=== PATIENT | male | born 1950 | race Two or more races ===

== ENCOUNTER 2016-03-23 17:26 | Inpatient (IN) | payer BC ==
[~2016-03-23] VITALS: Ht 177.8 cm; Wt 114.3 kg
[~2016-03-23 17:26] MED LIST: ASPIR 8181 MG ORAL; ATENOLOL25 MG ORAL; ATENOLOL50 MG ORAL; DIOVAN160 MG ORAL; LOVASTATIN20 MG ORAL; NORCO 10/3251 EA ORAL; SOMA350 MG PO
[2016-03-23] MEDS ORDERED: Morphine Sulfate 4mg/ml Inj IVP ONE (18:00)
--- NOTE | 2016-03-23 18:21 | Emergency Room Report ---
History of Present Illness General Chief Complaint: Lower Back Pain or Injury Source: Patient, Family Member, PMD Present Illness HPI This patient was sent in the by neurosurgery. The patient has a history of lumbar spinal fusion. He has been doing the driving and lifted some heavy luggage a couple days ago and since that time has been developing numbness in his left leg. He also has had weakness and foot drop of the left foot. He has pain in his low back. He denies recent illness. He denies fever or chills. He denies nausea or vomiting. He denies loss of bowel or bladder control. He has no other complaints. Allergies: Coded Allergies: No Known Allergies (Unverified , 07/24/12) Patient History Past Medical History: see triage record, DM, HTN, DC, CAD, CVA/TIA Past Surgical History: other - BL knee replacement. C2-4 spinal fusion, L3-5 spinal fusion. Social History: Denies: alcohol use, drug use, smoking Reviewed Nursing Documentation: PMH: Agreed, PSxH: Agreed Nursing Documentation-PMH Past Medical History: No History, Except For Hx Cardiac Problems: Yes - BILATERAL KNEE REPLACEMENT, L3 - L5 INFUSION, C3 - C4, 2004 DC Hx Hypertension: Yes Hx Diabetes: Yes Hx Cancer: No Hx Gastrointestinal Problems: No Hx Neurological Problems: Yes Hx Cerebrovascular Accident: Yes - mini stroke-2004 Review of Systems All Other Systems: negative except mentioned in HPI Physical Exam Vital Signs Date Time Temp Pulse Resp B/P Pulse Ox O2 Delivery O2 Flow Rate FiO2 03/23/16 17:41 98.1 85 20 128/53 99 Room Air Sp02 EP Interpretation: reviewed, normal General Appearance: no apparent distress, alert, GCS 15, non-toxic Head: normocephalic, atraumatic Eyes: bilateral eye PERRL, bilateral eye normal inspection ENT: hearing grossly normal, normal pharynx, no angioedema, normal voice Neck: full range of motion, supple/symm/no masses Respiratory: chest non-tender, lungs clear, normal breath sounds, speaking full sentences Cardiovascular #1: regular rate, rhythm, no edema Gastrointestinal: normal bowel sounds, non tender, soft, non-distended, no guarding, no rebound Rectal: deferred Musculoskeletal: back normal, normal range of motion, non-tender Neurologic: alert, oriented x3, responsive, barrel rifler III-XII nml as tested, sensory intact, speech normal, motor weakness - L. plantar flexion 3-4/5. Sensation decreased LLE diffusely. Psychiatric: judgement/insight normal, memory normal, mood/affect normal, no suicidal/homicidal ideation Skin: normal color, no rash, warm/dry, well hydrated Medical Decision Making Diagnostic Impression: Primary Impression: Lumbar radiculopathy Additional Impressions: Lumbar herniated disc Foot drop, left ER Course Patient has a known history of lumbar spinal fusion and disc disease. He has physical exam findings consistent with a herniated disc. He has some decreased sensation on the left lower extremity and weakness in the left foot. He was seen by neurosurgery and sent for further evaluation and admission. Neurosurgery requested steroids to be given an emergency department. An MRI is ordered but will be done as an inpatient. Inpatient physician will followup on the results of this. There is no evidence of cauda equina on physical exam or history. The patient is admitted for pain control and admitted for further evaluation and treatment. Labs Test 03/23/16 18:15 White Blood Count 9.3 K/UL (4.8-10.8) Red Blood Count 5.52 M/UL (4.70-6.10) Hemoglobin 17.5 G/DL (14.2-18.0) Hematocrit 52.2 % (42.0-52.0) Mean Corpuscular Volume 95 FL (80-99) Mean Corpuscular Hemoglobin 31.7 PG (27.0-31.0) Mean Corpuscular Hemoglobin Concent 33.5 G/DL (32.0-36.0) Red Cell Distribution Width 12.5 % (11.6-14.8) Platelet Count 235 K/UL (150-450) Mean Platelet Volume 6.4 FL (6.5-10.1) Neutrophils (%) (Auto) 80.1 % (45.0-75.0) Lymphocytes (%) (Auto) 13.3 % (20.0-45.0) Monocytes (%) (Auto) 5.7 % (1.0-10.0) Eosinophils (%) (Auto) 0.3 % (0.0-3.0) Basophils (%) (Auto) 0.5 % (0.0-2.0) Urine Color Yellow Urine Appearance Clear Urine pH 6 (4.5-8.0) Urine Specific [place] 1.015 (1.005-1.035) Urine Protein Negative (NEGATIVE) Urine Glucose (UA) 4+ (NEGATIVE) Urine Ketones 1+ (NEGATIVE) Urine Occult Blood Negative (NEGATIVE) Urine Nitrite Negative (NEGATIVE) Urine Bilirubin Negative (NEGATIVE) Urine Urobilinogen Normal MG/DL (0.0-1.0) Urine Leukocyte Esterase Negative (NEGATIVE) Sodium Level 140 mEQ/L (135-145) Potassium Level 4.0 mEQ/L (3.4-4.9) Chloride Level 97 mEQ/L (98-107) Carbon Dioxide Level 25 mEQ/L (20-30) Anion Gap 18 (5-15) Blood Urea Nitrogen 22 mg/dL (7-23) Creatinine 1.0 mg/dL (0.7-1.2) Estimat Glomerular Filtration Rate > 60 mL/min (>60) Glucose Level 247 mg/dL (74-106) Calcium Level 9.4 mg/dL (8.6-10.2) Total Bilirubin 0.4 mg/dL (0.0-1.2) Aspartate Amino Transf (AST/SGOT) 24 U/L (5-40) Alanine Aminotransferase (ALT/SGPT) 37 U/L (3-41) Alkaline Phosphatase 92 U/L (40-129) Total Protein 6.9 g/dL (6.6-8.7) Albumin 4.1 g/dL (3.5-5.2) Globulin 2.8 g/dL Albumin/Globulin Ratio 1.4 (1.0-2.7) EKG Diagnostic Results Rate: normal Rhythm: NSR ST Segments: no acute changes Rhythm Strip Diag. Results EP Interpretation: yes Rate: 70's Rhythm: NSR, no PVC's, no ectopy Last Vital Signs Date Time Temp Pulse Resp B/P Pulse Ox O2 Delivery O2 Flow Rate FiO2 03/23/16 17:41 98.1 85 20 128/53 99 Room Air Disposition: ADMITTED INPATIENT Condition: Stable ARSEN TODD D.O. Mar 23, 2016 18:21
[2016-03-23 18:41] LABS: APPEARANCE,URINE CLEAR; BASOPHILS % (AUTO) 0.5 % (0.0-2.0); EOSINOPHILS % (AUTO) 0.3 % (0.0-3.0); KETONES,URINE 1+ (NEGATIVE); LEUKOCYTE ESTERASE ,URINE NEGATIVE (NEGATIVE); LYMPHOCYTES % (AUTO) 13.3 % (20.0-45.0); MEAN CORPUSCULAR HEMOGLOBIN 31.7 PG (27.0-31.0); MEAN CORPUSCULAR HGB CONC 33.5 G/DL (32.0-36.0); MEAN CORPUSCULAR VOLUME 95 FL (80-99); MEAN PLATELET VOLUME 6.4 FL (6.5-10.1); MONOCYTES % (AUTO) 5.7 % (1.0-10.0); NEUTROPHILS % (AUTO) 80.1 % (45.0-75.0); NITRITE,URINE NEGATIVE (NEGATIVE); PH,URINE 6 (4.5-8.0); PLATELET COUNT 235 K/UL (150-450); PROTEIN,URINE NEGATIVE (NEGATIVE); RED BLOOD COUNT 5.52 M/UL (4.70-6.10); RED CELL DISTRIBUTION WIDTH 12.5 % (11.6-14.8); UROBILINOGEN,URINE NORMAL MG/DL (0.0-1.0); WHITE BLOOD COUNT 9.3 K/UL (4.8-10.8)
[2016-03-23] MEDS ORDERED: Dexamethasone 20mg/5ml IVP ONE (18:45)
[2016-03-23 18:54] LABS: ALANINE AMINOTRANSFERASE 37 U/L (3-41); ALBUMIN/GLOBULIN RATIO 1.4 (1.0-2.7); ANION GAP 18 (5-15); ASPARTATE AMINO TRANSFERASE 24 U/L (5-40); CALCIUM 9.4 mg/dL (8.6-10.2); CARBON DIOXIDE 25 mEQ/L (20-30); CHLORIDE 97 mEQ/L (98-107); GLOMERULAR FILTRATION RATE > 60 mL/min (>60); HEMOLYSIS 15; SODIUM 140 mEQ/L (135-145); TOTAL PROTEIN 6.9 g/dL (6.6-8.7)
[2016-03-23 18:56] VITALS: BP 137/81
[2016-03-23] MEDS ORDERED: PREDNISONE10 MG ORAL (19:54)
[2016-03-23] MEDS ORDERED: GABAPENTIN100 MG ORAL (19:54)
[2016-03-23] MEDS ORDERED: KETOROLAC TROME10 MG PO (19:55)
[2016-03-23] MEDS ORDERED: DOC-Q-LACE100 M1 ORAL (19:56)
[2016-03-23] MEDS ORDERED: IBUPROFEN600 MG ORAL (19:57)
[2016-03-23] MEDS ORDERED: OMEPRAZOLE20 M2 ORAL (19:57)
[2016-03-23] MEDS ORDERED: FAMOTIDINE20 MG ORAL (19:58)
[2016-03-23] MEDS ORDERED: METFORMIN HCL750 MG ORAL (19:59)
[2016-03-23] MEDS ORDERED: ACTOS30 MG ORAL (19:59)
[2016-03-23] MEDS ORDERED: DIOVAN80 MG ORAL (19:59)
[2016-03-23 20:00] VITALS: BP 140/78
[2016-03-23] MEDS ORDERED: LOVASTATIN20 MG ORAL (20:00)
[2016-03-23] MEDS ORDERED: ATENOLOL50 MG ORAL (20:00)
[2016-03-23] MEDS ORDERED: AMLODIPINE BESYL5 MG ORAL (20:00)
[2016-03-24] MEDS ORDERED: Dexamethasone Elixir 0.25mg/2.5ml ORAL ONE (03:00)
[2016-03-24 04:00] VITALS: BP 140/79
[2016-03-24 07:08] LABS: PROTHROMBIN TIME 10.2 SEC (9.30-11.50)
[2016-03-24] MEDS: NovoLOG Insulin Flexpen SUBQ SCH ×4 (07:10→20:50)
[2016-03-24 07:21] LABS: MEAN CORPUSCULAR HEMOGLOBIN 31.8 PG (27.0-31.0); MEAN CORPUSCULAR VOLUME 93 FL (80-99); PLATELET COUNT 198 K/UL (150-450); RED BLOOD COUNT 4.84 M/UL (4.70-6.10); RED CELL DISTRIBUTION WIDTH 12.2 % (11.6-14.8); WHITE BLOOD COUNT 8.8 K/UL (4.8-10.8)
[2016-03-24 07:41] LABS: ALANINE AMINOTRANSFERASE 32 U/L (3-41); ALBUMIN/GLOBULIN RATIO 1.5 (1.0-2.7); ANION GAP 18 (5-15); ASPARTATE AMINO TRANSFERASE 20 U/L (5-40); CARBON DIOXIDE 23 mEQ/L (20-30); CHLORIDE 99 mEQ/L (98-107); CREATININE 0.9 mg/dL (0.7-1.2); GLOMERULAR FILTRATION RATE > 60 mL/min (>60); HEMOLYSIS 9; POTASSIUM 4.4 mEQ/L (3.4-4.9); SODIUM 140 mEQ/L (135-145); TOTAL PROTEIN 6.3 g/dL (6.6-8.7)
[2016-03-24 08:00] VITALS: BP 135/75
[2016-03-24] MEDS ORDERED: PredniSONE 5mg tab ORAL SCH (09:00)
[2016-03-24] MEDS: metFORMIN 500mg tab ORAL SCH ×3 (09:00→18:15)
[2016-03-24] MEDS ORDERED: Influenza Virus Vaccine 0.5ml IM ONE (10:00)
[2016-03-24] MEDS: Docusate 100mg cap ORAL SCH ×2 (10:32→18:15)
[2016-03-24] MEDS: Aspirin EC 81mg tab ORAL SCH (10:32)
[2016-03-24 10:50] LABS: BAND NEUTROPHILS % (MANUAL) 0 % (0-8); BASOPHILS % (MANUAL) 0 % (0-2); EOSINOPHILS % (MANUAL) 0 % (0-3); LYMPHOCYTES % (MANUAL) 9 % (20-45); NEUTROPHILS % (MANUAL) 87 % (45-75); PLATELET ESTIMATE ADEQUATE; PLATELET MORPHOLOGY NORMAL; TOTAL CELLS COUNTED 100
[2016-03-24 12:00] VITALS: BP 118/71
[2016-03-24] MEDS ORDERED: Tamsulosin 0.4mg cap ORAL ONE (12:00)
--- NOTE | 2016-03-24 12:43 | History and Physical ---
History of Present Illness General Date patient seen: Mar 24, 2016 Time patient seen: 12:39 Reason for Hospitalization: Lower Back Pain or Injury Present Illness HPI 66 y/o man with hx of lumbar stenosis, with recent hx of lumbar surgery, sent to the ED with c/o foot drop. The patient has a history of lumbar spinal fusion. 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 He also has had weakness and foot drop of the left foot. He has pain in his low back. He denies recent illness. He denies fever or chills. He denies nausea or vomiting. He denies loss of bowel or bladder control. He has no other complaints. Denies chest pain or dyspnea. Allergies: Coded Allergies: No Known Allergies (Unverified , 07/24/12) Medication History Scheduled Amlodipine Besylate* (Amlodipine Besylate*), 5 MG ORAL DAILY, (Reported) Aspirin* (Aspir 81*), 81 MG ORAL DAILY, (Reported) Atenolol* (Tenormin*), 50 MG ORAL DAILY, (Reported) Docusate Sodium (Doc-Q-Lace), 100 MG ORAL BID, (Reported) Famotidine (Famotidine), 20 MG ORAL TWICE A DAY, (Reported) Gabapentin* (Gabapentin*), 400 MG ORAL THREE TIMES A DAY, (Reported) Ibuprofen* (Motrin*), 800 MG ORAL TWICE A DAY, (Reported) Lovastatin (Lovastatin), 20 MG ORAL DAILY, (Reported) Metformin Hcl (Metformin Hcl Er), 750 MG ORAL TWICE A DAY, (Reported) Omeprazole (Omeprazole), 20 MG ORAL DAILY, (Reported) Pioglitazone Hcl* (Actos*), 30 MG ORAL DAILY, (Reported) Prednisone* (Prednisone*), 10 MG ORAL FOUR TIMES A DAY, (Reported) Valsartan (Diovan), 80 MG ORAL DAILY, (Reported) Scheduled PRN Carisoprodol* (Soma*), 350 MG PO EVERY 12 HOURS PRN for muscle spasms, (Reported ) Hydrocodone/Acetaminophen (Hydrocodon-Acetaminophn 10-325), 1 TAB ORAL Q4H PRN for For Pain, (Reported) Discontinued Medications Atenolol* (Tenormin*), 50 MG ORAL DAILY, (Reported) Discontinued Reason: Pt stopped taking med Ketorolac Tromethamine (Ketorolac Tromethamine), 10 MG PO EVERY 12 HOURS PRN for For Pain, (Reported) Discontinued Reason: Pt stopped taking med Lovastatin (Lovastatin), 20 MG ORAL BEDTIME, (Reported) Discontinued Reason: Pt stopped taking med Valsartan (Diovan), 80 MG ORAL DAILY, (Reported) Discontinued Reason: Pt stopped taking med Patient History History Provided By: Patient Healthcare decision maker Resuscitation status Full Code Advanced Directive on File Family History Family History: Patient reports no known family medical history. Social History Social History: (1) No significant social history Review of Systems ROS Narrative CONSTITUTIONAL: No weight loss, fever, chills, weakness or fatigue. HEENT: Eyes: No visual loss, blurred vision, double vision or yellow sclerae. Ears, Nose, Throat: No hearing loss, sneezing, congestion, runny nose or sore throat. SKIN: No rash or itching. CARDIOVASCULAR: No chest pain, chest pressure or chest discomfort. No palpitations or edema. RESPIRATORY: No shortness of breath, cough or sputum. GASTROINTESTINAL: No anorexia, nausea, vomiting or diarrhea. No abdominal pain or blood. NEUROLOGICAL: No headache, dizziness, syncope, paralysis, ataxia. + Numbness or tingling in the LLE. No change in bowel or bladder control. MUSCULOSKELETAL: No muscle, joint pain or stiffness. + Low back pain HEMATOLOGIC: No anemia, bleeding or bruising. LYMPHATICS: No enlarged nodes. No history of splenectomy. PSYCHIATRIC: No history of depression or anxiety. ENDOCRINOLOGIC: No reports of sweating, cold or heat intolerance. No polyuria or polydipsia. ALLERGIES: No history of asthma, hives, eczema or rhinitis. Physical Exam Physical Exam Narrative General: alert, cooperative, no distress, appears stated age Head: normocephalic, without obvious abnormality, atraumatic Eyes: conjunctivae/corneas clear. PERRL, EOM's intact Throat: lips, mucosa, and tongue normal. MMM Neck: supple, symmetrical, trachea midline, and no JVD Lungs: clear to auscultation bilaterally Heart: regular rate and rhythm, S1, S2 normal, no murmur, click, rub or gallop Abdomen: soft, non-tender, non-distended, bowel sounds normal; no masses or organomegaly Extremities: extremities normal, atraumatic, no cyanosis or edema Pulses: 2+ and symmetric Skin: skin color, texture, turgor normal; no rashes or lesions Neurologic: CN2-12 wnl Last 24 Hour Vital Signs Date Time Temp Pulse Resp B/P Pulse Ox O2 Delivery O2 Flow Rate FiO2 03/24/16 10:35 135/75 03/24/16 10:34 57 135/75 03/24/16 10:33 57 135/75 03/24/16 08:00 97.3 59 18 135/75 97 Room Air 03/24/16 04:00 97.2 54 20 140/79 96 Room Air 03/23/16 20:17 68 18 137/73 95 Room Air 03/23/16 20:00 98.1 73 19 140/78 98 Room Air 03/23/16 20:00 98.1 73 19 140/78 98 Room Air 03/23/16 18:56 76 20 137/81 98 Room Air 03/23/16 18:50 98.1 03/23/16 17:41 98.1 85 20 128/53 99 Room Air Intake and Output 03/23/16 03/24/16 19:00 07:00 Intake Total 1000 ml Balance 1000 ml Intake IV Total 1000 ml # Voids 1 Laboratory Tests Test 03/23/16 18:15 03/24/16 05:10 White Blood Count 9.3 K/UL (4.8-10.8) 8.8 K/UL (4.8-10.8) Red Blood Count 5.52 M/UL (4.70-6.10) 4.84 M/UL (4.70-6.10) Hemoglobin 17.5 G/DL (14.2-18.0) 15.4 G/DL (14.2-18.0) Hematocrit 52.2 % (42.0-52.0) H 45.2 % (42.0-52.0) Mean Corpuscular Volume 95 FL (80-99) 93 FL (80-99) Mean Corpuscular Hemoglobin 31.7 PG (27.0-31.0) H 31.8 PG (27.0-31.0) H Mean Corpuscular Hemoglobin Concent 33.5 G/DL (32.0-36.0) 34.0 G/DL (32.0-36.0) Red Cell Distribution Width 12.5 % (11.6-14.8) 12.2 % (11.6-14.8) Platelet Count 235 K/UL (150-450) 198 K/UL (150-450) Mean Platelet Volume 6.4 FL (6.5-10.1) L 7.0 FL (6.5-10.1) Neutrophils (%) (Auto) 80.1 % (45.0-75.0) H % (45.0-75.0) Lymphocytes (%) (Auto) 13.3 % (20.0-45.0) L % (20.0-45.0) Monocytes (%) (Auto) 5.7 % (1.0-10.0) % (1.0-10.0) Eosinophils (%) (Auto) 0.3 % (0.0-3.0) % (0.0-3.0) Basophils (%) (Auto) 0.5 % (0.0-2.0) % (0.0-2.0) Urine Color Yellow Urine Appearance Clear Urine pH 6 (4.5-8.0) Urine Specific [place] 1.015 (1.005-1.035) Urine Protein Negative (NEGATIVE) Urine Glucose (UA) 4+ (NEGATIVE) H Urine Ketones 1+ (NEGATIVE) H Urine Occult Blood Negative (NEGATIVE) Urine Nitrite Negative (NEGATIVE) Urine Bilirubin Negative (NEGATIVE) Urine Urobilinogen Normal MG/DL (0.0-1.0) Urine Leukocyte Esterase Negative (NEGATIVE) Sodium Level 140 mEQ/L (135-145) 140 mEQ/L (135-145) Potassium Level 4.0 mEQ/L (3.4-4.9) 4.4 mEQ/L (3.4-4.9) Chloride Level 97 mEQ/L (98-107) L 99 mEQ/L (98-107) Carbon Dioxide Level 25 mEQ/L (20-30) 23 mEQ/L (20-30) Anion Gap 18 (5-15) H 18 (5-15) H Blood Urea Nitrogen 22 mg/dL (7-23) 21 mg/dL (7-23) Creatinine 1.0 mg/dL (0.7-1.2) 0.9 mg/dL (0.7-1.2) Estimat Glomerular Filtration Rate > 60 mL/min (>60) > 60 mL/min (>60) Glucose Level 247 mg/dL (74-106) H 170 mg/dL (74-106) H Calcium Level 9.4 mg/dL (8.6-10.2) 9.0 mg/dL (8.6-10.2) Total Bilirubin 0.4 mg/dL (0.0-1.2) 0.4 mg/dL (0.0-1.2) Aspartate Amino Transf (AST/SGOT) 24 U/L (5-40) 20 U/L (5-40) Alanine Aminotransferase (ALT/SGPT) 37 U/L (3-41) 32 U/L (3-41) Alkaline Phosphatase 92 U/L (40-129) 79 U/L (40-129) Total Protein 6.9 g/dL (6.6-8.7) 6.3 g/dL (6.6-8.7) L Albumin 4.1 g/dL (3.5-5.2) 3.8 g/dL (3.5-5.2) Globulin 2.8 g/dL 2.5 g/dL Albumin/Globulin Ratio 1.4 (1.0-2.7) 1.5 (1.0-2.7) Differential Total Cells Counted 100 Neutrophils % (Manual) 87 % (45-75) H Lymphocytes % (Manual) 9 % (20-45) L Monocytes % (Manual) 4 % (1-10) Eosinophils % (Manual) 0 % (0-3) Basophils % (Manual) 0 % (0-2) Band Neutrophils 0 % (0-8) Platelet Estimate Adequate Platelet Morphology Normal Red Blood Cell Morphology Normal Prothrombin Time 10.2 SEC (9.30-11.50) Prothromb Time International Ratio 1.0 (0.9-1.1) Height (Feet): 5 Height (Inches): 10.00 Weight (Pounds): 252 Medications Current Medications Medications (Trade) Dose Ordered Sig/Lalito Route PRN Reason Start Time Stop Time Status Last Admin Dose Admin Amlodipine Besylate (Norvasc) 5 mg DAILY ORAL 03/24/16 09:00 04/23/16 08:59 03/24/16 10:33 Aspirin (Ecotrin) 81 mg DAILY ORAL 03/24/16 09:00 04/23/16 08:59 03/24/16 10:32 Atenolol (Tenormin) 50 mg DAILY ORAL 03/24/16 09:00 04/23/16 08:59 03/24/16 10:34 Atorvastatin Calcium (Lipitor) 10 mg BEDTIME ORAL 03/24/16 21:00 04/23/16 20:59 Carisoprodol (Soma) 350 mg EVERY 12 HOURS PRN ORAL muscle spasms 03/23/16 22:00 04/22/16 21:59 Dexamethasone Sodium Phosphate (Decadron 20mg/ 5ml vial) 10 mg Q8H IVP 03/24/16 18:00 04/23/16 17:59 Dextrose (Dextrose 50%) STAT PRN IV Hypoglycemia 03/23/16 23:00 04/22/16 22:59 Docusate Sodium (Colace) 100 mg BID ORAL 03/24/16 09:00 04/23/16 08:59 03/24/16 10:32 Gabapentin (Neurontin) 400 mg THREE TIMES A DAY ORAL 03/24/16 09:00 04/23/16 08:59 03/24/16 10:33 Insulin Aspart (NovoLOG) BEFORE MEALS AND HS SUBQ 03/24/16 06:30 04/23/16 06:29 03/24/16 07:10 Irbesartan (Avapro) 75 mg DAILY ORAL 03/24/16 09:00 04/23/16 08:59 03/24/16 10:35 Metformin HCl (Glucophage) 750 mg BID ORAL 03/24/16 09:00 04/23/16 08:59 Pioglitazone HCl (Actos) 30 mg DAILY PO 03/24/16 09:00 04/23/16 08:59 03/24/16 10:34 Assessment/Plan Problem List: (1) Foot drop, left Assessment & Plan: Start Decadron 10mg IV q8 PT/OT Pain control Supp care Pt had a recent CT spine as outpt that was normal, no indication for surgical intervention, case d/w Spine surgery, Dr. Angelia tam ICD Codes: M21.372 - Foot drop, left foot SNOMED: 7339527, 73723889 (2) Lumbar herniated disc Assessment & Plan: As above ICD Codes: M51.26 - Other intervertebral disc displacement, lumbar region SNOMED: 149973529, 29294737 (3) Hyperlipidemia Assessment & Plan: Cont statin ICD Codes: E78.5 - Hyperlipidemia SNOMED: 74765833 (4) Hypertension Assessment & Plan: Cont BP meds ICD Codes: I10 - Hypertension SNOMED: 30916970 (5) Diabetes mellitus Assessment & Plan: Cont sliding scale Expect temporary hyperglycemia with steroid dose May need long acting insulin temporarily Diabetic diet ICD Codes: E11.9 - Type 2 diabetes mellitus without complications SNOMED: 90528031 PETE AMIN Mar 24, 2016 12:43
[2016-03-24 16:37] VITALS: BP 111/64
[2016-03-24] MEDS: Dexamethasone 20mg/5ml IVP SCH (18:14)
[2016-03-25] MEDS: Dexamethasone 20mg/5ml IVP SCH ×2 (02:25→10:08)
--- NOTE | 2016-03-25 04:49 | History and Physical Report ---
DATE OF ADMISSION: 03/23/2016 HISTORY OF PRESENT ILLNESS: The patient is a 66-year-old male, who presents following a new onset of left-sided footdrop and intractable back pain. He had a prior lumbar 4-5 and lumbar 5 - sacral 1 transforaminal lumbar interbody fusion performed at [facility] and has been doing very well for a two-year period following that surgery. He presents pain free to our office over the past two-year period. 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 As a result of recent elevation of pain, he described intractable back pain and was seen in my office yesterday on 03/23/2016. During the office visit, he reported severe intractable pain. On physical examination, he had a left-sided footdrop. An urgent CT scan was ordered, which demonstrated hardware intact and in excellent position with appropriate fusion throughout the interbody cages and posterolaterally. PAST MEDICAL HISTORY: The patient has a history of diabetes, hypertension, CAD, CVA, and knee arthritis. PAST SURGICAL HISTORY: Bilateral knee replacement. SOCIAL HISTORY: Denies. PHYSICAL EXAMINATION: Motor examination on 03/23/2016, tibialis anterior graded 0/5, EHL graded 1/5, gastrocsoleus graded 4+/5, peroneal is graded 4-/5, and iliopsoas graded 3/5. Sensation intact through bilateral lower extremities to light touch and pinprick in the bilateral L1,2,3,4,5,S1,S2,S3,S4 distributions. There is some decreased sensation which is present in the left left in an L5 and S1 distribution. Reflexes graded 2/2 in the right sided patellar and achilles, graded 0/2 in the left sided patellar and achilles PHYSICAL EXAMINATION ON 03/24/2016 AFTER PAIN MEDICATION AND PREDNISONE 10 MG P.O. Q.I.D. IS FOLLOWS: The patient is able to move his tibialis anterior more comfortably, now graded 4-/5, EHL graded 4+/5, peroneal graded 4/5, and iliopsoas graded 4-/5. Sensation intact through bilateral lower extremities to light touch and pinprick in the bilateral L1,2,3,4,5,S1,S2,S3,S4 distributions. There is some decreased sensation which is present in the left left in an L5 and S1 distribution. Reflexes graded 2/2 in the right sided patellar and achilles, graded 1/2 in the left sided patellar and 1/2 in the achilles IMPRESSION AND PLAN: Lumbar radiculopathy, dropfoot left sided, persistent pain, and herniations multilevel throughout the lumbar spine. Today, the patient has an improved sensation in the left lower extremity and while still weakness left, there is some improvement. At this point, I would like to observe him for one more day. He will be admitted for gait training and I would recommend to continue his steroids, which seemed to obviously be giving him improvement from the standpoint of his previous footdrop. I will order therapy and anticipate if he continues to improve as accordingly, he may be cleared for discharge on Saturday. Clint Galan M.D. DR: AKASH JOB#: [id number] CC: EZEKIEL
[2016-03-25] MEDS: NovoLOG Insulin Flexpen SUBQ SCH ×4 (06:32→20:56)
[2016-03-25 08:00] VITALS: BP 139/77
[2016-03-25] MEDS: Aspirin EC 81mg tab ORAL SCH (09:13)
[2016-03-25] MEDS: metFORMIN 500mg tab ORAL SCH ×2 (09:14→17:29)
[2016-03-25] MEDS: Docusate 100mg cap ORAL SCH ×2 (09:14→17:29)
--- NOTE | 2016-03-25 10:51 | General Progress Note ---
Assessment/Plan Problem List: (1) Foot drop, left Assessment & Plan: Cont Decadron 10mg IV q8 PT/OT Pain control Supp care Pt had a recent CT spine as outpt that was normal, no indication for surgical intervention, case d/w Spine surgery, Dr. Galan extensively, will obtain repeat MRI Lumbar spine ICD Codes: M21.372 - Foot drop, left foot SNOMED: 3063282, 06878894 (2) Lumbar herniated disc Assessment & Plan: As above ICD Codes: M51.26 - Other intervertebral disc displacement, lumbar region SNOMED: 791947386, 35772728 (3) Hyperlipidemia Assessment & Plan: Cont statin ICD Codes: E78.5 - Hyperlipidemia SNOMED: 33761360 (4) Hypertension Assessment & Plan: Cont BP meds ICD Codes: I10 - Hypertension SNOMED: 79280084 (5) Diabetes mellitus Assessment & Plan: Cont sliding scale Expect temporary hyperglycemia with steroid dose May need long acting insulin temporarily Diabetic diet ICD Codes: E11.9 - Type 2 diabetes mellitus without complications SNOMED: 52365057 Subjective Date patient seen: Mar 25, 2016 Time patient seen: 10:48 ROS Limited/Unobtainable: No Constitutional: Reports: no symptoms HEENT: Reports: no symptoms Cardiovascular: Reports: no symptoms Respiratory: Reports: no symptoms Gastrointestinal/Abdominal: Reports: constipated Genitourinary: Reports: other - retention Neurologic/Psychiatric: Reports: weakness Endocrine: Denies: excessive sweating, flushing, increased hunger, increased thirst, increased urine, intolerance to cold, intolerance to heat, no symptoms, other, unexplained weight gain, unexplained weight loss Hematologic/Lymphatic: Denies: anemia, easy bleeding, easy bruising, no symptoms, other Allergies: Coded Allergies: No Known Allergies (Unverified , 07/24/12) Subjective Today he states his foot drop on Left is worse, also unable to void, multiple straight catheter insertions, more back pain, also constipated, last BM Objective Last 24 Hour Vital Signs Date Time Temp Pulse Resp B/P Pulse Ox O2 Delivery O2 Flow Rate FiO2 03/25/16 09:15 61 139/77 03/25/16 09:15 61 139/77 03/25/16 09:14 139/77 03/24/16 19:15 97.2 03/24/16 16:37 97.2 64 18 111/64 95 Room Air 03/24/16 12:00 98.4 63 20 118/71 96 Room Air Bad table Height (Feet): 5 Height (Inches): 10.00 Weight (Pounds): 252 Objective General: alert, cooperative, no distress, appears stated age Head: normocephalic, without obvious abnormality, atraumatic Eyes: conjunctivae/corneas clear. PERRL, EOM's intact Throat: lips, mucosa, and tongue normal. MMM Neck: supple, symmetrical, trachea midline, and no JVD Lungs: clear to auscultation bilaterally Heart: regular rate and rhythm, S1, S2 normal, no murmur, click, rub or gallop Abdomen: soft, non-tender, non-distended, bowel sounds normal; no masses or organomegaly Extremities: extremities normal, atraumatic, no cyanosis or edema Pulses: 2+ and symmetric Skin: skin color, texture, turgor normal; no rashes or lesions PETE AMIN Mar 25, 2016 10:50
[2016-03-25 12:00] VITALS: BP 123/69
[2016-03-25] MEDS ORDERED: Fleet's Enema 133ml RECTAL ONE (12:00)
[2016-03-25] MEDS ORDERED: Magnesium Citrate Liq Btl ORAL ONE (12:00)
[2016-03-25] MEDS: D5W IVPB SCH (17:29)
[2016-03-25] MEDS: DEXAMETHASONE IVPB SCH (17:29)
[2016-03-25] MEDS ORDERED: Dexamethasone 20mg/5ml IVP SCH (18:00)
[2016-03-25 20:00] VITALS: BP 119/74
[2016-03-25] MEDS: Tamsulosin 0.4mg cap ORAL SCH (20:46)
--- NOTE | 2016-03-25 21:39 | Progress Note ---
DATE: 03/25/2016 Time of Evaluation: At 3:15 p.m. SUBJECTIVE: The patient just completed ambulating with Therapy today and now is still admitted for persistent pain. He reports difficulty with ambulation, left-sided leg pain, back pain, and weakness. He now reports difficulty voiding and the nurses have needed to straight cath him to allow for voiding. OBJECTIVE: On physical examination today, he is able to demonstrate tibialis anterior strength 1/5, however, needs several incidences of coaxing in order to perform this. He initially feels that he cannot elevate the foot and after instructing him on how to perform this, he is able to elevate the foot. He demonstrates EHL strength graded 2/5. He has the capacity today to walk with the assistance of Therapy today. He demonstrates iliopsoas strength graded 5/5, and gastrocnemius soleus strength graded 5/5, peroneal strength graded 5/5 on the left lower extremity. Right lower extremity 5/5 throughout. Decreased sensation in the bilateral testicular sac and perianal skin. Sensation intact on the penis itself. IMPRESSION AND PLAN: Status post transforaminal lumbar interbody fusion, L4-5 and L5-S1 in 2015, stenosis, and with left-sided weakness. Impending cauda equina syndrome. The patient is having difficulty he reports with ambulation and weakness. He had significant improvement in this yesterday and today he has weakness again, but has noticed some decreased sensation in his testicle, which is confirmed with the exam. We have already ordered a stat MRI, which is yet to be done. I will add to the MRI request a cervical and thoracic MRI. He understands the plan accordingly and we will continue to monitor him, but I feel he must stay one more day in the hospital for further monitoring. In regards to his constipation, I have ordered an enema and we will follow him accordingly. I have researched his insurance EPO policy and found Dr Calderon a surgeon I am familiar with who is in his plan and I have called his office to reach out and inquire as to whether he can help us in this situation. I will call his office on Saturday during the work week and follow up with this accordingly Clint Galan M.D. DR: JOHN JOB#: [id number] CC: EZEKIEL
[2016-03-26] MEDS: DEXAMETHASONE IVPB SCH ×3 (02:09→18:42)
[2016-03-26] MEDS: D5W IVPB SCH ×3 (02:09→18:42)
[2016-03-26 04:00] VITALS: BP 122/72
[2016-03-26] MEDS: NovoLOG Insulin Flexpen SUBQ SCH ×4 (06:29→21:12)
[2016-03-26 08:00] VITALS: BP 122/74
[2016-03-26] MEDS ORDERED: Morphine Sulfate 2mg/ml Inj IVP ONE (09:45)
[2016-03-26] MEDS: metFORMIN 500mg tab ORAL SCH ×2 (11:00→17:26)
[2016-03-26] MEDS: Docusate 100mg cap ORAL SCH ×2 (11:01→17:26)
[2016-03-26] MEDS: Aspirin EC 81mg tab ORAL SCH (11:01)
[2016-03-26 12:00] VITALS: BP 128/75
--- NOTE | 2016-03-26 12:56 | Diagnostic Imaging Report ---
Indication: BK PAIN Technique: Sagittal T1 fast echo, sagittal T2 PROPELLER, sagittal STIR PROPELLER, axial T1 FLAIR PROPELLER and T2 FR fast spin-echo images of the lumbar spine Comparison: None Findings: There is a slight degree of image degradation due to motion artifact. Posterior fusion hardware is seen from L4-S1. This shows off some susceptibility artifact which may obscure pathology. There is straightening of the normal lumbar lordosis, otherwise normal bony alignment. There is slight anterior wedging of the L1, L2 and L3 vertebral bodies. Suspect that this is physiologic, however rather than acquired. The conus medullaris terminates at the level of the L1-2 disc At T12-L1, there is minimal degenerative disc narrowing. No significant disc bulge or protrusion, spinal stenosis, or neural foraminal stenosis. At L1-2, there is minimal degenerative disc narrowing. There is circumferential annular bulge. This, in combination with facet and ligamentum flavum hypertrophy, results in mild to moderate narrowing of the spinal canal. There is slight clumping of the nerve roots at this level. The bulging disc results in only minimal narrowing of the bilateral neural foramina, left in particular At L2-3, there is moderate degenerative disc narrowing. There is circumferential annular bulge. This, in combination with facet and ligamentum flavum hypertrophy and short pedicles results in moderate narrowing of the spinal canal, with the AP dimension about 5 mm and degree narrowing by between one third and two thirds. There is clumping of the nerve roots. The bulging disc results in minimal narrowing of the bilateral neural foramina. At L3-4, there is mild degenerative disc narrowing. There is circumferential annular bulge. This, in combination with short pedicles, facet and ligamentum flavum hypertrophy results in moderate to severe narrowing of the spinal canal, with the spinal canal narrowed by nearly 2/3, AP dimension of 4 mm. There is also a transverse narrowing of the spinal canal, which measures approximately 9 mm transverse dimension at this level. This results in mild narrowing of the bilateral neural foramina as well. At L4-5, there is no significant disc space narrowing. There is mild circumferential annular bulge. This, in combination with short pedicles and flavum and facet hypertrophy results in mild narrowing of the spinal canal, 8 mm minimum AP dimension, approximately one third overall dimension of spinal canal. There is also mild transverse narrowing of the spinal canal, some crowding of the nerve roots. Is there is also compromise of the bilateral lateral recesses. The bulging disc also results in at least mild narrowing of the left neural foramen. There is questionably intrauterine of the left L4 pedicle screw in the upper portion of the neural foramen, although this appearance could be due to susceptibility artifact. At L5-S1, there is mild degenerative disc narrowing. No significant disc bulge or protrusion or spinal stenosis. Due to susceptibility artifact, the relationship of the L5 pedicle screws to the neural foramina cannot be established with confidence. The S1 pedicle screws clearly avoid the neural foramina. The included exercise soft tissues are unremarkable. Impression: Multilevel spinal stenosis, due to circumferential annular bulge, facet and ligamentum flavum hypertrophy. This is moderate to severe at L3-4, moderate L2-3, mild to moderate L1-2, and mild L4-5 Associated areas of neural foraminal narrowing, as described on a level by level basis above Postsurgical changes as described. Consider CT to better assess the relationship of the pedicle screws to the neural foramina, if clinically indicated No acute bony trauma
--- NOTE | 2016-03-26 14:09 | General Progress Note ---
Assessment/Plan Problem List: (1) Foot drop, left Assessment & Plan: Cont Decadron 10mg IV q8 PT/OT Pain control Supp care Pt had a recent CT spine as outpt that was normal, no indication for surgical intervention, case d/w Spine surgery, Dr. Galan extensively MRI lumbar spine without acute abnormality ICD Codes: M21.372 - Foot drop, left foot SNOMED: 7231215, 59507076 (2) Lumbar herniated disc Assessment & Plan: As above ICD Codes: M51.26 - Other intervertebral disc displacement, lumbar region SNOMED: 347356457, 85170788 (3) Hyperlipidemia Assessment & Plan: Cont statin ICD Codes: E78.5 - Hyperlipidemia SNOMED: 19226409 (4) Hypertension Assessment & Plan: Cont BP meds ICD Codes: I10 - Hypertension SNOMED: 67626262 (5) Diabetes mellitus Assessment & Plan: Cont sliding scale Expect temporary hyperglycemia with steroid dose May need long acting insulin temporarily Diabetic diet ICD Codes: E11.9 - Type 2 diabetes mellitus without complications SNOMED: 79123587 (6) Urinary retention Assessment & Plan: Cont uribe catheter for now Cont flomax Consult urology ICD Codes: R33.9 - Retention of urine, unspecified SNOMED: 893605911 Subjective Date patient seen: Mar 26, 2016 Time patient seen: 14:05 ROS Limited/Unobtainable: No Allergies: Coded Allergies: No Known Allergies (Unverified , 07/24/12) Subjective Today he states his foot drop on Left is slightly better, still with uribe catheter, still with back pain, also constipated, last BM Objective Last 24 Hour Vital Signs Date Time Temp Pulse Resp B/P Pulse Ox O2 Delivery O2 Flow Rate FiO2 03/26/16 12:00 97.5 56 19 128/75 96 Room Air 03/26/16 11:01 57 122/74 03/26/16 11:00 122/74 03/26/16 11:00 57 122/74 03/26/16 08:00 96.4 57 20 122/74 98 Room Air 03/26/16 04:00 97.7 79 20 122/72 94 Room Air 03/25/16 22:04 97.2 03/25/16 20:00 97.2 63 18 119/74 94 Room Air 03/25/16 18:32 97.9 Intake and Output 03/25/16 03/26/16 19:00 07:00 Intake Total 60 ml 295 ml Output Total 825 ml 1100 ml Balance -765 ml -805 ml Intake Oral 240 ml IV Total 60 ml 55 ml Output Urine Total 825 ml 1100 ml # Voids 1 1 # Bowel Movements 1 4 Height (Feet): 5 Height (Inches): 10.00 Weight (Pounds): 252 Objective General: alert, cooperative, no distress, appears stated age Head: normocephalic, without obvious abnormality, atraumatic Eyes: conjunctivae/corneas clear. PERRL, EOM's intact Throat: lips, mucosa, and tongue normal. MMM Neck: supple, symmetrical, trachea midline, and no JVD Lungs: clear to auscultation bilaterally Heart: regular rate and rhythm, S1, S2 normal, no murmur, click, rub or gallop Abdomen: soft, non-tender, non-distended, bowel sounds normal; no masses or organomegaly Extremities: extremities normal, atraumatic, no cyanosis or edema Pulses: 2+ and symmetric Skin: skin color, texture, turgor normal; no rashes or lesions PETE AMIN Mar 26, 2016 14:09
[2016-03-26] MEDS ORDERED: NS 275ml ONE (14:18)
[2016-03-26] MEDS ORDERED: Tubing IV Secondary IV ONE (14:18)
--- NOTE | 2016-03-26 14:43 | Diagnostic Imaging Report ---
Indication: Severe low back pain, left foot drop, history of low back cervical spine surgery Technique: Sagittal T1 FLAIR PROPELLER, sagittal T2 PROPELLOR, sagittal STIR, axial T2 PROPELLER, axial 3D COSMIC ASPIR images were obtained through the cervical spine Comparison: None Findings: There is some image degradation due to motion artifact, particularly on the axial images. Anterior fusion hardware is seen at C5-6 and C6-7. The bony alignment is normal. Vertebral body heights are preserved. The vertebral body marrow signal is grossly normal. Intrinsic cord signal is grossly normal on the sagittal images. There is too much image degradation on the axial images 2 confidently rule out cord pathology on those At C2-3, the disc space is preserved. No significant disc bulge or protrusion, final stenosis, or neural frontal stenosis. At C3-4, the disc space is preserved. No significant disc bulge or protrusion or spinal stenosis. There is minimal neural foraminal narrowing on the right due to facet and uncinate hypertrophy. At C4-5, the disc space is preserved. There is minimal circumferential annular bulge and broad-based posterior disc protrusion. This results in borderline spinal stenosis, but there is preservation of CSF signal surrounding the cord. There is minimal bilateral neural foraminal narrowing this level. At C5-6, the disc space is difficult to assess, as most of it is obscured by susceptibility artifact from the fusion hardware. On the T2 axial images, there is questionably some posterior disc protrusion, but there is considerable artifact and this is not corroborated on the better quality axial ASPIR and sagittal T2-weighted images. The neural foramina are difficult to evaluate; suspect that there may be moderate neural foramina stenosis bilaterally. At C6-7, the disc space is difficult to assess due to susceptibility artifact. As at the above level, there is suggestion of mild spinal canal stenosis on the axial T2-weighted images. On the sagittal images there is evidence of minimal spinal canal narrowing, but this appears to be more due to short pedicles and significant disc protrusion. The neural foramina are impossible to assess on the axial T2-weighted images, suspect mild narrowing. At C7-T1, there is mild circumferential annular bulge. This does not severely compromise the spinal canal or spinal cord. The neural foramina appear to be widely patent. Impression: No acute bony trauma Postsurgical changes, as described Degenerative changes as detailed on a level by level basis above, with areas of mild and probably not significant spinal stenosis, and areas of neural foraminal stenosis as described Findings previously discussed by phone with Dr. Galan
[2016-03-26 16:11] VITALS: BP 117/70
[2016-03-26 20:32] VITALS: BP 118/74
[2016-03-26] MEDS: Tamsulosin 0.4mg cap ORAL SCH (21:10)
--- NOTE | 2016-03-26 23:09 | Consultation ---
Consult Note Consult Note NEUROLOGY CONSULTATION: Full note dictated #[id number] 66 y/o, RH, CM who does have a PH of HTN, DM, OA with bilateral knee replacements, LS spine surgery 2 years ago and C spine surgery 1 year ago. 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 Then in the earlier part of last week he had problems moving his right leg for a brief period of time while he was driving. On 03/22/16 he noted problems with left leg movements with problems raising his left foot and toes. In addition the left leg also felt numb. On 03/24/16 he was hospitalized at [facility] and given steroids. There was no significant change in motor function. He got some Morphine for pain and then developed inability to void urine. ON EXAM: G 4+/5 in right IP/ G 4-/5 in left IP G 5/5 in right quads/ G 4+/5 in left quads G 5/5 in right hams/G 4/5 in left hams G 4+/5 in right ankle DF and TE/ G 1/5 in left ankle DF and TE G 5-/5 in right ankle PF and TF/ G 4-/5 in left ankle PF and TF Altered sensation in entire left LE with preferential involvement of left L5 and saddle area. LE areflexia with trace reflexes in UE. L>R paraparetic gait. IMPRESSION: Lumbosacral polyradiculopathy involving left side > right due to severe L 3-4 spinal stenosis and moderate L 2-3 stenosis. REC: Spinal decompression RHIANNA. Continue steroids for now. Frances Murillo M.D., M.S.P.H. FRANCES MURILLO Mar 26, 2016 23:08
[2016-03-27] VITALS: BP 133/79
--- NOTE | 2016-03-27 00:39 | Consultation ---
DATE OF CONSULTATION: 03/26/2016 CONSULTATION: REFERRING PHYSICIAN: Lucero Coughlin M.D. CONSULTING PHYSICIAN: Reinier Whaley M.D. REASON FOR CONSULTATION: For evaluation of urinary retention. HISTORY OF PRESENT ILLNESS: This is a 66-year-old male who has a history of lumbar disk disease. He has had previous lumbar and cervical spine surgery. He was admitted to the hospital because of new onset of left-sided footdrop and also intractable back pain. He has had difficulty voiding. The urinary retention requiring intermittent catheterization. Apparently yesterday, a Cabral catheter was placed indwelling. Urology evaluation requested. The patient denies previous prostate surgery. PAST MEDICAL HISTORY: Significant for above. Also, history of diabetes, hypertension, CVA, and coronary artery disease. PAST SURGICAL HISTORY: As above. Also, knee replacement. CURRENT MEDICATIONS: In the hospital, the patient is on Soma, insulin, Avapro, Actos, Glucophage, Neurontin, Colace, Januvia, Ecotrin, Norvasc, Lipitor, , and MiraLAX. Flomax has been added. ALLERGIES: No known drug allergies. SOCIAL HISTORY: The patient is a nonsmoker. FAMILY HISTORY: Noncontributory. REVIEW OF SYSTEMS: As above. PHYSICAL EXAMINATION: GENERAL: This is a well-developed and well-nourished, in no acute distress. VITAL SIGNS: He is afebrile and blood pressure 117/70. ABDOMEN: Soft. BACK: No CVA tenderness. : Cabral catheter in place, twelve-Khmer. Urine mamie yellow. RECTAL: Reveals a smooth prostate about 30 to 40 grams. EXTREMITIES: No clubbing, cyanosis, edema. LABORATORY DATA: White count 8.8, hemoglobin 15.4, and platelets . BUN is 21, creatinine 0.9, and potassium 4.4. UA showed 4+ glucose and 1+ ketones, otherwise negative. DIAGNOSTIC IMAGING STUDIES: The patient had a cervical spine MRI, which was reviewed and there was no acute bony trauma mentioned post surgical changes. He also had a lumbar spine MRI and there was mention of multiple level spinal stenosis due to circumferential annular bulge ligamentum flavum hypertrophy. IMPRESSION: 1. Urinary retention. 2. Benign prostatic hypertrophy. 3. Probable neurogenic bladder. PLAN AND DISCUSSION: Again, the patient does have urinary retention presumably secondary to combination of BPH related bladder outlet obstruction and possible neurogenic bladder because of the spinal disease. At this time, I would recommend to keep the Cabral catheter indwelling. Flomax has been added and the patient can have a voiding trial once he is more medically stable and ambulatory. At some point, he may need to have cystoscopy and urodynamics for further evaluation. I will follow the patient. Any other recommendations will be forthcoming . Thank you, Dr. Coughlin, for asking me to see this patient in consultation. Reinier Whaley M.D. DR: Zheng JOB#: [id number] CC:
[2016-03-27] MEDS: DEXAMETHASONE IVPB SCH ×3 (01:05→17:42)
[2016-03-27] MEDS: D5W IVPB SCH ×3 (01:05→17:42)
--- NOTE | 2016-03-27 02:19 | Consultation ---
DATE OF CONSULTATION: 03/26/2016 REQUESTING PHYSICIAN: Lucero Coughlin M.D. HISTORY: Mr. Eliane Qiu is a 66-year-old, right-handed, gentleman from [facility], who does have a past history of hypertension, diabetes mellitus, osteoarthritis with bilateral knee replacements, lumbosacral spine disease and cervical spine disease for which he had surgery in 2014 and 2015 respectively, who was functioning relatively well following the surgery. 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 Then, a few weeks ago, he lifted some heavy bottles of water and the problem got worse. In the earlier part of last week, he developed problems moving his right leg for a brief period of time while he was driving. On 03/22/2016, he noted problems with his left leg movements and also problems raising his left foot and toes. In addition, the entire left leg became numb. He went to his spine surgeon, Dr. Clint Galan on 03/23/2016. During that office visit, he was noted to have significant low back pain and in addition had a left-sided foot drop. A CT scan of the spine was performed and demonstrated that the hardware was intact and well positioned. As there was no significant improvement following that, on 03/24/2016, he was hospitalized at [facility]. He was started on IV steroids, but there was no significant change in his motor function. He did get some morphine for pain and following that developed inability to void urine. He has since had MRI scans of the cervical and lumbar spine performed. At this point in time, he continues to have significant weakness in both his lower extremities involving the left side more than the right, and in addition, also complains of altered sensation in his left lower extremity and in his saddle area. He has a Cabral catheter in right now, so he is uncertain as to whether he can void or not. The back pain also continues involving his low back. PAST MEDICAL HISTORY: Significant for hypertension, diabetes mellitus, osteoarthritis involving both knee joints, lumbosacral spine surgery 2 years ago, cervical spine surgery 1 year ago, fractures of his upper extremity following a fall from a tree. FAMILY HISTORY: Significant for diabetes mellitus in his mother and brother. PERSONAL HISTORY: Home: He lives with his and children. 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 Habits: There is no history of alcohol, tobacco or illicit drug use. PRESENT MEDICATIONS: Include Flomax, dexamethasone 20 mg every 8 hours, MiraLAX, Dulcolax, Lipitor, Norvasc, Ecotrin, Tenormin, docusate sodium, Neurontin, metformin, Actos, Avapro, NovoLog, and Soma. PHYSICAL EXAMINATION: GENERAL: He is a well-developed, well-nourished, slightly obese, gentleman, lying in bed, no acute distress. VITAL SIGNS: Pulse is 68 per minute, blood pressure 118/74 mmHg, respirations 18 per minute, and temperature 97.7 degrees Fahrenheit. HEAD: Normocephalic and atraumatic. EENT: Examination benign. NECK: No neck rigidity was observed. SPINE: Cervical, thoracic, and lumbosacral spine revealed tenderness in his lumbosacral area and decreased range of motion involving the entire spine. NEUROLOGICAL EXAMINATION: MENTAL STATUS EXAMINATION: He was alert and awake. He was oriented to person, place, and time. He was able to recall 3/3 words immediately after 1 minute and after 3 minutes on the second trial. He was able to remember presidents Trump through Vir[employer]. His mathematical skills were fairly good. His visuospatial function was preserved. SPEECH: He had no dysarthria. LANGUAGE: He had no aphasia. CRANIAL NERVE EXAMINATION: II: The visual camargo were intact to confrontation testing. III, IV & : The external ocular movements were full and the pupils 3 mm in diameter, equal, round, regular and reactive to light. V: He had normal facial sensations in the temporales, masseters, and pterygoids functioned normally. VII: He had normal facial expression and no facial asymmetry. VIII: He able to hear well bilaterally and had no nystagmus. IX: The palate moved symmetrically on phonation. X: He had no hoarseness of voice. XI: The sternocleidomastoids and trapezii functioned normally. XII: The tongue was in the midline without any fasciculations or atrophy. MOTOR SYSTEM: The tone was normal in all four extremities. Examination of muscle mass revealed no focal wasting. Examination of power revealed G 5/5 power in both upper extremities. In the lower extremities, he had G 4+/5 on the right side, and G 4-/5 on the left side in the iliopsoas. G 5/5 on the right side, and G 4+/5power on the left side in the quadriceps. G 5/5 power on the right side and grade 4/5 power on the left side, in the hamstrings. G 4+/5 power on the right side, and G 1/5 power on the left side in the ankle dorsiflexors, and toe extensors. G 5-/5 power on the right side and G 4-/5 power on the left side in the ankle plantar flexors and toe flexors. SENSORY EXAMINATION: He had altered sensations to pinprick and light touch in the entire left lower extremity with preferential involvement of the left L5 nerve root. In addition, he also had altered sensations in the saddle area. REFLEXES: Trace+ and bilaterally symmetrical at the biceps, triceps, and brachioradialis. 0 at both knees and ankles. The plantar responses were flexor bilaterally. STANCE: He stood up with support. GAIT: He walked with support with a paraplegic gait involving the left side more than the right side. DIAGNOSTIC IMPRESSION: 1. Mr. Eliane Qiu is a 66-year-old, right-handed, gentleman, who does have a past history of hypertension, diabetes mellitus, dyslipidemia, osteoarthritis involving both knees, fractures of both his arms that were treated, lumbosacral spine surgery two years ago and cervical spine surgery one year ago, who approximately one month ago started to have some increased low back pain and then in the earlier part of last week developed problems moving his right leg, and on 03/22/2016 developed significant left leg weakness, increased low back pain and altered sensations in his left leg. He was hospitalized on 03/24/2016, started on steroids and was given morphine for pain and then developed inability to void urine. 2. On neurological examination, at this time, he does demonstrate a significant paraparesis involving the left side significantly more than the right side and the L5 muscles preferentially. He also has altered sensations to pinprick and light touch involving his entire left lower extremity with preferential involvement of the left L5 nerve root, and in addition his sacral area. The deep tendon reflexes are significantly diminished in the upper extremities and lost in the lower extremities. He needs support to stand up and walks with a left greater than right paraplegic gait. 3. An MRI scan of the lumbosacral spine performed on 03/26/2016, reveals severe L3-4 spinal stenosis, moderate L2-3 spinal stenosis and milder L1-2 spinal stenosis. 4. The patient's history and neurological examination, and MRI scan findings are most compatible with a severe lumbosacral polyradiculopathy involving the left side more than the right due to the severe L3-4 spinal stenosis and moderate L2-3 spinal stenosis. RECOMMENDATIONS: 1. Agree with management thus far. 2. Would continue IV steroids for now. 3. Surgical spinal decompression should be performed as soon as possible to preserve function. Thank you for entrusting me with the care of Mr. Qiu. I shall follow him with you. Julio Murillo M.D., M.S.P.H. DR: REGINA JOB#: [id number] MTDNino
--- NOTE | 2016-03-27 03:39 | Progress Note ---
DATE: 03/26/2016 SUBJECTIVE: Intractable back pain, left-sided lower extremity weakness with saddle anesthesia, testicular anesthesia, perirectal anesthesia, and left-sided footdrop. OBJECTIVE: A lumbar MRI demonstrates L3-L4 herniated nucleus pulposus, which is large, severe stenosis, neural foraminal stenosis throughout L4-L5, L5-S1, L1-L2, and L2-L3 central stenosis, hardware present at L4-L5 and L5-S1, healed cervical fusion, and thoracic degenerative disc disease. Motor examination intact, tibialis anterior graded 1/5 on the left, graded 5/5 on the right, EHL graded 4- on the left, graded 5 on the right, iliopsoas graded 4- on the left, and quadriceps graded 4- on the left. Sensation decreased to light touch and pinprick on the left L4 and L5 distribution, decreased to light touch in the bilateral testicles, sensation intact with twisting and pinching of bilateral testicular and penis and along the perirectal region today, which is improved from yesterday. IMPRESSION AND PLAN: This is a 66-year-old male with intractable back pain, left-sided weakness, and difficulty voiding. He had an enema yesterday and afterward he was able to have a bowel movement with the assistance of the enema. He has not had a bowel movement today. He has noted some significant pain while performing MRI today of the cervical, lumbar, and thoracic spine. I spoke with Dr. Montano and we reviewed the MRIs together, which demonstrated L3-L4 disc herniation, which is unchanged from his MRI in February 2016. He still has severe stenosis at L3-L4 with neural foraminal stenosis at L4-L5 and L5-S1. He has been recommended by myself to have an urgent lumbar decompression consisting of a laminectomy of L1, L2, L3, L4, and L5 and the dorsum of S1, microdiscectomy of L3-L4 on the left side, hardware removal and revision of L4, L5, and S1 with pedicle screw fixation and posterior lateral fusion. He understands the importance of said procedures, however, while contacting his insurance company both Saturday and again today, we were told he is part of an exclusive provider organization and as such we would not be allowed to take him to surgery. Today, we spoke with the insurance again and informed them the urgency of this matter and situation in regard to his developing of a cauda equina syndrome. They stated to please send us the clinicals. We have provided them with all reports as well as the MRIs and CT scan, which we have done recently including today and we tried to call the insurance multiple times today and they did not clear him for the surgical procedure. I looked up the exclusive provider organization physicians who are in his network and I spoke with Dr. Calderon today and informed him of the patient's condition personally. He agreed with me and felt that this was in need of an urgent decompression and felt that if he was not cleared by the insurer to have me perform the service, that he would be more than willing to help in this nature. I thanked him and today we consulted Urology and Neurology to evaluate the patient. At this point, we are pending clearance from the insurer. If I do not hear by tomorrow, I have discussed with the patient the option for an expedient transfer to Dr. Calderon's care in order to help the patient on an urgent basis. Clint Galan M.D. DR: HIRO JOB#: [id number] CC: [email or web address]
[2016-03-27 04:00] VITALS: BP 114/65
[2016-03-27] MEDS: NovoLOG Insulin Flexpen SUBQ SCH ×4 (06:52→21:59)
[2016-03-27] MEDS: metFORMIN 500mg tab ORAL SCH ×2 (08:14→17:41)
[2016-03-27] MEDS: Aspirin EC 81mg tab ORAL SCH (08:14)
[2016-03-27] MEDS: Docusate 100mg cap ORAL SCH ×2 (08:15→17:41)
[2016-03-27 08:50] VITALS: BP 119/69
--- NOTE | 2016-03-27 10:46 | Diagnostic Imaging Report ---
Indications: Cephalgia, left-sided weakness Technique: Sagittal and axial T1 weighted fast spin-echo, axial T2-weighted fat saturated fast spin echo, T2-weighted FLAIR, T2*-weighted gradient echo, and diffusion sequences of the brain were performed prior to IV gadolinium administration. Axial and coronal T1 weighted fast spin-echo was performed following IV gadolinium administration. Findings: Comparison: None Ventricles, cisterns, sulci are mildly, diffusely prominent.. No evidence of mass or hemorrhage, other signal abnormality, mass effect, midline shift, hydrocephalus, or increased intracranial pressure. No restricted diffusion. No abnormal enhancement. Central vascular flow voids preserved. Mild prominence of retro-odontoid soft tissues indenting the ventral surface of thecal sac. No obvious spinal stenosis or cord compression results. IMPRESSION: No evidence of acute intracranial pathology Atrophy, prominent for age Retro-odontoid soft tissue prominence, nonspecific. Consider inflammatory arthritis such as rheumatoid. No obvious neural impingement. This correlates with Dr. Leung's preliminary report..
[2016-03-27 12:03] VITALS: BP 110/65
--- NOTE | 2016-03-27 12:35 | Urology Progress Note ---
Assessment/Plan Assessment/Plan 1. Urinary retention. 2. Benign prostatic hypertrophy. 3. Probable neurogenic bladder. uribe indwelling for now flomax awaiting decision re surgery voiding trial later d/w Dr. Coughlin Subjective Allergies: Coded Allergies: No Known Allergies (Unverified , 07/24/12) Subjective all noted Objective Last 24 Hour Vital Signs Date Time Temp Pulse Resp B/P Pulse Ox O2 Delivery O2 Flow Rate FiO2 03/27/16 12:03 97.7 58 14 110/65 97 Room Air 03/27/16 08:50 97.3 56 14 119/69 96 Room Air 03/27/16 08:15 119/69 03/27/16 08:15 57 119/69 03/27/16 08:14 57 119/69 03/27/16 04:00 97.7 71 20 114/65 95 03/27/16 00:00 97.5 60 20 133/79 94 Room Air 03/26/16 20:32 97.7 65 19 118/74 94 Room Air 03/26/16 18:26 96.3 03/26/16 18:26 96.3 03/26/16 16:11 96.3 59 18 117/70 94 Room Air Intake and Output 03/26/16 03/27/16 19:00 07:00 Intake Total 1560 ml 360 ml Output Total 1625 ml Balance 1560 ml -1265 ml Intake Oral 1560 ml 360 ml Output Urine Total 1625 ml # Voids 2 Current Medications Medications (Trade) Dose Ordered Sig/Lalito Route PRN Reason Start Time Stop Time Status Last Admin Dose Admin Amlodipine Besylate (Norvasc) 5 mg DAILY ORAL 03/24/16 09:00 04/23/16 08:59 03/27/16 08:14 Aspirin (Ecotrin) 81 mg DAILY ORAL 03/24/16 09:00 04/23/16 08:59 03/27/16 08:14 Atenolol (Tenormin) 50 mg DAILY ORAL 03/24/16 09:00 04/23/16 08:59 03/27/16 08:15 Atorvastatin Calcium (Lipitor) 10 mg BEDTIME ORAL 03/24/16 21:00 04/23/16 20:59 03/26/16 21:10 Bisacodyl (Dulcolax) 10 mg DAILYPRN PRN RECTAL Constipation Second Line 03/25/16 10:45 04/24/16 10:44 Carisoprodol (Soma) 350 mg EVERY 12 HOURS PRN ORAL muscle spasms 03/23/16 22:00 04/22/16 21:59 03/26/16 17:27 Dexamethasone Sodium Phosphate/ Dextrose (Decadron 20mg/ 5ml vial/D5W) 60 ml @ 100 mls/hr Q8H IVPB 03/27/16 07:28 04/24/16 17:59 03/27/16 10:21 Dextrose (Dextrose 50%) STAT PRN IV Hypoglycemia 03/23/16 23:00 04/22/16 22:59 Docusate Sodium (Colace) 100 mg BID ORAL 03/24/16 09:00 04/23/16 08:59 03/27/16 08:15 Gabapentin (Neurontin) 400 mg THREE TIMES A DAY ORAL 03/24/16 09:00 04/23/16 08:59 03/27/16 08:16 Insulin Aspart (NovoLOG) BEFORE MEALS AND HS SUBQ 03/24/16 06:30 04/23/16 06:29 03/27/16 12:20 Irbesartan (Avapro) 75 mg DAILY ORAL 03/24/16 09:00 04/23/16 08:59 03/27/16 08:15 Metformin HCl (Glucophage) 750 mg BID ORAL 03/24/16 09:00 04/23/16 08:59 03/27/16 08:14 Pioglitazone HCl (Actos) 30 mg DAILY PO 03/24/16 09:00 04/23/16 08:59 03/27/16 08:14 Polyethylene Glycol (Miralax) 17 gm DAILY PRN ORAL Constipation First line 03/25/16 10:45 04/24/16 10:44 Tamsulosin HCl 0.4 mg 0.4 mg BEDTIME ORAL 03/25/16 21:00 04/24/16 20:59 03/26/16 21:10 Height (Feet): 5 Height (Inches): 10.00 Weight (Pounds): 252 DAVID PAYAN Mar 27, 2016 12:35
--- NOTE | 2016-03-27 12:56 | Diagnostic Imaging Report ---
Indication: History of prior spinal surgery. Left foot drop obscured low back pain Technique: Sagittal and axial T1 FLAIR PROPELLER, sagittal T2 FRFSE, , sagittal and axial T2 PROPELLER, sagittal STIR PROPELLER, axial T2 fast spin echo images were obtained through the thoracic spine Comparison: None Findings: There is some image degradation on the axial images due to motion artifact. Bony alignment is normal. Vertebral body heights are preserved. Vertebral body marrow signal is unremarkable. The intrinsic cord signal is unremarkable. No significant disc bulge or protrusion, spinal stenosis, or neural foraminal stenosis. There is abundant epidural fat, particularly posteriorly, but this is not appear to significantly narrow the spinal canal or impinge upon the cord. The included extraspinal soft tissues are unremarkable. Impression: No acute process or evidence of significant neural impingement
--- NOTE | 2016-03-27 15:50 | Diagnostic Imaging Report ---
Indication: S. pain, hypertension Technique: Single portable AP view of the chest. Findings: Comparison: None. Aortic arch mildly elongated. Small osteophytes inferior margin left glenohumeral joint. The main bones and extra pulmonary soft tissues, remainder of the cardiomediastinal silhouette, pulmonary vasculature and parenchyma, and pleural surfaces are unremarkable. IMPRESSION: No evidence of acute cardiopulmonary disease Probable chronic hypertensive change of the thoracic aorta Left glenohumeral mild degenerative arthropathy.
[2016-03-27] MEDS ORDERED: Magnesium Citrate Liq Btl ORAL ONE (16:00)
[2016-03-27 16:03] LABS: INR 1.1 (0.9-1.1); PROTHROMBIN TIME 11.4 SEC (9.30-11.50)
[2016-03-27 16:04] VITALS: BP 121/69
--- NOTE | 2016-03-27 18:10 | Neurology Progress Note ---
Interim History Interim History Interim History Mr. Qiu feels a little better today. The legs are minimally stronger - with the left leg weaker than the right. The altered sensation in the left leg is now limited to the lower leg. He did some walking earlier. His appetite is good. The altered sensation in his saddle area is less intense. He still has a Cabral catheter in. Review of Systems Neuro Review of Systems Benign. Objective Physical Exam Last Vital Signs Date Time Temp Pulse Resp B/P Pulse Ox O2 Delivery O2 Flow Rate FiO2 03/27/16 16:04 97.7 52 18 121/69 95 Room Air Laboratory Tests Test 03/27/16 15:00 Prothrombin Time 11.4 SEC (9.30-11.50) Prothromb Time International Ratio 1.1 (0.9-1.1) Activated Partial Thromboplast Time 26 SEC (23-33) Neurologic Exam Objective PHYSICAL EXAMINATION: GENERAL: He is a well-developed, well-nourished, slightly obese, gentleman, lying in bed, no acute distress. HEAD: Normocephalic and atraumatic. EENT: Examination benign. NECK: No neck rigidity was observed. SPINE: Cervical, thoracic, and lumbosacral spine revealed tenderness in his lumbosacral area and decreased range of motion involving the entire spine. NEUROLOGICAL EXAMINATION: MENTAL STATUS EXAMINATION: He was alert and awake. He was oriented to person, place, and time. He was able to recall 3/3 words immediately after 1 minute and after 3 minutes on the second trial. He was able to remember presidents Trump through Vir[employer]. His mathematical skills were fairly good. His visuospatial function was preserved. SPEECH: He had no dysarthria. LANGUAGE: He had no aphasia. CRANIAL NERVE EXAMINATION: II: The visual camargo were intact to confrontation testing. III, IV & : The external ocular movements were full and the pupils 3 mm in diameter, equal, round, regular and reactive to light. V: He had normal facial sensations in the temporales, masseters, and pterygoids functioned normally. VII: He had normal facial expression and no facial asymmetry. VIII: He able to hear well bilaterally and had no nystagmus. IX: The palate moved symmetrically on phonation. X: He had no hoarseness of voice. XI: The sternocleidomastoids and trapezii functioned normally. XII: The tongue was in the midline without any fasciculations or atrophy. MOTOR SYSTEM: The tone was normal in all four extremities. Examination of muscle mass revealed no focal wasting. Examination of power revealed G 5/5 power in both upper extremities. In the lower extremities he had: G 4+/5 on the right side, and G 4-/5 on the left side in the iliopsoas. G 5/5 on the right side, and G 5-/5power on the left side in the quadriceps. G 5/5 power on the right side and grade 4+/5 power on the left side, in the hamstrings. G 4+/5 power on the right side, and G 2/5 power on the left side in the ankle dorsiflexors, and toe extensors. G 5-/5 power on the right side and G 4-/5 power on the left side in the ankle plantar flexors and toe flexors. SENSORY EXAMINATION: He had altered sensations to pinprick and light touch in the entire left lower extremity with preferential involvement of the left L5 nerve root. In addition, he also had altered sensations in the saddle area. REFLEXES: Trace+ and bilaterally symmetrical at the biceps, triceps, and brachioradialis. 0 at both knees and ankles. The plantar responses were flexor bilaterally. STANCE: He stood up with support. GAIT: He walked with support with a paraplegic gait involving the left side more than the right side. Impression/Recommendations Diagnostic Impression 1. Mr. Eliane Qiu is a 66-year-old, right-handed, gentleman, who does have a past history of hypertension, diabetes mellitus, dyslipidemia, osteoarthritis involving both knees, fractures of both his arms that were treated, lumbosacral spine surgery two years ago and cervical spine surgery one year ago, who approximately one month ago started to have some increased low back pain and then in the earlier part of last week developed problems moving his right leg, and on 03/22/2016 developed significant left leg weakness, increased low back pain and altered sensations in his left leg. He was hospitalized on 03/24/2016, started on steroids and was given morphine for pain and then developed inability to void urine. 2. He feels a little better today. The legs are a little stronger and the altered sensation is less intense. 3. On neurological examination, at this time, he does demonstrate a significant paraparesis involving the left side significantly more than the right side and the L5 muscles preferentially - however he is minimally stronger than yesterday. He also has altered sensations to pinprick and light touch involving his entire left lower extremity with preferential involvement of the left L5 nerve root, and in addition his sacral area. The deep tendon reflexes are significantly diminished in the upper extremities and lost in the lower extremities. He needs support to stand up and walks with a left greater than right paraplegic gait. 4. An MRI scan of the lumbosacral spine performed on 03/26/2016, reveals severe L3-4 spinal stenosis, moderate L2-3 spinal stenosis and milder L1-2 spinal stenosis. 5. The MRI of the C-spine performed on 03/26/16 reveals post-operative changes but no cord pathology. 6. The MRI of the T-spine performed on 03/26/16 reveals no cord pathology. 7. The MRI of the brain performed on 03/26/16 reveals atrophy but no acute intracranial pathology. 8. The patient's history and neurological examination, and MRI scan findings are most compatible with a severe lumbosacral polyradiculopathy involving the left side more than the right due to the severe L3-4 spinal stenosis and moderate L2-3 spinal stenosis. Recommendations 1. Continue present management. 2. Continue IV steroids. 3. Continue to keep active with PT/OT. 4. Surgical spinal decompression should be performed as soon as possible to preserve function. Julio Chin M.D., M.S.P.H. JULIO CHIN Mar 27, 2016 18:09
--- NOTE | 2016-03-27 19:51 | General Progress Note ---
Assessment/Plan Problem List: (1) Foot drop, left Assessment & Plan: Cont Decadron 10mg IV q8 PT/OT Pain control Supp care Pt had a recent CT spine as outpt that was normal, no indication for surgical intervention, case d/w Spine surgery, Dr. Galan extensively MRI lumbar spine shows severe stenosis at L3, d/w Neurology, no evidence of epidural abscess or cauda equina Pt needs urgent decompression, d/w Dr. Galan, unfortunately insurance company not authorizing MRI brain neg for acute CVA ICD Codes: M21.372 - Foot drop, left foot SNOMED: 8545152, 32647529 (2) Lumbar herniated disc Assessment & Plan: As above ICD Codes: M51.26 - Other intervertebral disc displacement, lumbar region SNOMED: 875544833, 58849088 (3) Hyperlipidemia Assessment & Plan: Cont statin ICD Codes: E78.5 - Hyperlipidemia SNOMED: 74720072 (4) Hypertension Assessment & Plan: Cont BP meds ICD Codes: I10 - Hypertension SNOMED: 86705167 (5) Diabetes mellitus Assessment & Plan: Cont sliding scale Expect temporary hyperglycemia with steroid dose May need long acting insulin temporarily Diabetic diet ICD Codes: E11.9 - Type 2 diabetes mellitus without complications SNOMED: 56770527 (6) Urinary retention Assessment & Plan: Cont uribe catheter for now Cont flomax Consult urology ICD Codes: R33.9 - Retention of urine, unspecified SNOMED: 244949067 Subjective Date patient seen: Mar 27, 2016 Time patient seen: 13:20 Allergies: Coded Allergies: No Known Allergies (Unverified , 07/24/12) Subjective Today he states his foot drop on Left is the same, still with uribe catheter, still with back pain Objective Last 24 Hour Vital Signs Date Time Temp Pulse Resp B/P Pulse Ox O2 Delivery O2 Flow Rate FiO2 03/27/16 18:40 97.7 03/27/16 16:04 97.7 52 18 121/69 95 Room Air 03/27/16 12:03 97.7 58 14 110/65 97 Room Air 03/27/16 08:50 97.3 56 14 119/69 96 Room Air 03/27/16 08:15 119/69 03/27/16 08:15 57 119/69 03/27/16 08:14 57 119/69 03/27/16 04:00 97.7 71 20 114/65 95 03/27/16 00:00 97.5 60 20 133/79 94 Room Air 03/26/16 20:32 97.7 65 19 118/74 94 Room Air Intake and Output 03/26/16 03/27/16 19:00 07:00 Intake Total 1560 ml 360 ml Output Total 1625 ml Balance 1560 ml -1265 ml Intake Oral 1560 ml 360 ml Output Urine Total 1625 ml # Voids 2 Laboratory Tests 03/27/16 15:00: Prothrombin Time 11.4, Prothromb Time International Ratio 1.1, Activated Partial Thromboplast Time 26 Height (Feet): 5 Height (Inches): 10.00 Weight (Pounds): 252 Objective General: alert, cooperative, no distress, appears stated age Head: normocephalic, without obvious abnormality, atraumatic Eyes: conjunctivae/corneas clear. PERRL, EOM's intact Throat: lips, mucosa, and tongue normal. MMM Neck: supple, symmetrical, trachea midline, and no JVD Lungs: clear to auscultation bilaterally Heart: regular rate and rhythm, S1, S2 normal, no murmur, click, rub or gallop Abdomen: soft, non-tender, non-distended, bowel sounds normal; no masses or organomegaly Extremities: extremities normal, atraumatic, no cyanosis or edema Pulses: 2+ and symmetric Skin: skin color, texture, turgor normal; no rashes or lesions PETE AMIN Mar 27, 2016 19:51
[2016-03-27 20:21] VITALS: BP 131/73
[2016-03-27] MEDS: Tamsulosin 0.4mg cap ORAL SCH (21:58)
[2016-03-28] VITALS (13 sets, daily range): BP systolic 111–150; BP diastolic 61–86
[2016-03-28] MEDS: DEXAMETHASONE IVPB SCH ×4 (00:25→23:28)
[2016-03-28] MEDS: D5W IVPB SCH ×4 (00:25→23:28)
[2016-03-28] MEDS: NovoLOG Insulin Flexpen SUBQ SCH ×4 (05:39→21:00)
--- NOTE | 2016-03-28 05:39 | Progress Note ---
DATE: 03/27/2016 SUBJECTIVE: Intractable back pain, left-sided foot drop, and testicular paresthesias. PHYSICAL EXAMINATION: Some decreased sensation still present into bilateral testicles. Weakness, tibialis anterior on the left graded 1/5, EHL graded 3-/5, peroneal graded 3-/5. Cabral catheter in place. Decreased sensation in the perianal area and the bilateral proximal thighs in L3 and L4 distribution and in upper sacral distribution as well. IMPRESSION AND PLAN: 1. Lumbar disc herniation, L3-4. 2. Lumbar foraminal stenosis, L4-5 and L5-S1. 3. Persistent back pain. 4. Ongoing cauda equina syndrome. DISCUSSION: I had a long discussion with the patient today in his room. At this point, he seems to be doing well in regards to pain control. He still has ongoing saddle anesthesia, weakness in his left lower extremity consistent with a drop foot and trouble with urinating consistent with cauda equina syndrome. We have tried on multiple occasions today to contact his insurer on four different occasions and requested the permission for urgent surgery; however, they have not only ignored our multiple requests, but told us to await a nursing care supervisor [employer] who would speak with us today and finally by day's end after much telephone calls, they told us they would speak with their physician for medical clearance. They understood the severity. We told them we are documenting their resistance to our requests and they demonstrated no interest in allowing us to speak with anyone in person who could help pursue with the claim and the denial, and in fact, they said they were doing everything on their part that they had to do. We explained to them that this was an ongoing cauda equina syndrome and expressed the importance of obtaining authorization for me to perform the surgery as an [id number] surgeon with no in-network surgeon being in the hospital at that time. Apparently, they will speak with their physician tomorrow and we will see if they allow us to perform the urgent decompression surgery as needed. The patient is understanding of this. He also understands that I have spoken with a physician at an outside facility and a transfer may be necessary. We will work up his preoperative clearance in the interim. Clint Galan M.D. DR: JOHN JOB#: [id number] CC:
[2016-03-28] MEDS: metFORMIN 500mg tab ORAL SCH ×2 (09:00→18:00)
[2016-03-28] MEDS: Aspirin EC 81mg tab ORAL SCH (09:00)
[2016-03-28] MEDS: Docusate 100mg cap ORAL SCH (09:00)
--- NOTE | 2016-03-28 09:38 | General Progress Note ---
Assessment/Plan Problem List: (1) Foot drop, left Assessment & Plan: Cont Decadron 10mg IV q8 PT/OT Pain control Supp care Pt had a recent CT spine as outpt that was normal, no indication for surgical intervention, case d/w Spine surgery, Dr. Galan extensively MRI lumbar spine shows severe stenosis at L3, d/w Neurology, no evidence of epidural abscess or cauda equina Pt needs urgent decompression, d/w Dr. Galan, unfortunately insurance company not authorizing MRI brain neg for acute CVA Given need for urgent surgery for L3 stenosis, nuc stress test was ordered for today for medical/cardiac pre-op evaluation and optimization ICD Codes: M21.372 - Foot drop, left foot SNOMED: 2962064, 21519498 (2) Lumbar herniated disc Assessment & Plan: As above ICD Codes: M51.26 - Other intervertebral disc displacement, lumbar region SNOMED: 645653540, 41647460 (3) Hyperlipidemia Assessment & Plan: Cont statin ICD Codes: E78.5 - Hyperlipidemia SNOMED: 59987714 (4) Hypertension Assessment & Plan: Cont BP meds ICD Codes: I10 - Hypertension SNOMED: 30883163 (5) Diabetes mellitus Assessment & Plan: Cont sliding scale Expect temporary hyperglycemia with steroid dose May need long acting insulin temporarily Diabetic diet ICD Codes: E11.9 - Type 2 diabetes mellitus without complications SNOMED: 75715864 (6) Urinary retention Assessment & Plan: Cont uribe catheter for now Cont flomax Consult urology ICD Codes: R33.9 - Retention of urine, unspecified SNOMED: 576428352 Subjective Date patient seen: Mar 28, 2016 Time patient seen: 09:35 ROS Limited/Unobtainable: No Allergies: Coded Allergies: No Known Allergies (Unverified , 07/24/12) Subjective Today he states his foot drop on Left is the same, still with uribe catheter, still with back pain Objective Last 24 Hour Vital Signs Date Time Temp Pulse Resp B/P Pulse Ox O2 Delivery O2 Flow Rate FiO2 03/28/16 08:00 97.0 54 18 127/71 97 Room Air 03/28/16 04:00 96.6 80 18 127/61 98 Room Air 03/28/16 00:00 97.3 58 18 117/73 95 Room Air 03/27/16 20:21 97.2 56 18 131/73 94 Room Air 03/27/16 18:40 97.7 03/27/16 16:04 97.7 52 18 121/69 95 Room Air 03/27/16 12:03 97.7 58 14 110/65 97 Room Air Intake and Output 03/27/16 03/28/16 19:00 07:00 Intake Total 1200 ml 240 ml Output Total 1500 ml Balance 1200 ml -1260 ml Intake Oral 1200 ml 240 ml Output Urine Total 1500 ml Laboratory Tests 03/27/16 15:00: Prothrombin Time 11.4, Prothromb Time International Ratio 1.1, Activated Partial Thromboplast Time 26 Height (Feet): 5 Height (Inches): 10.00 Weight (Pounds): 252 Objective General: alert, cooperative, no distress, appears stated age Head: normocephalic, without obvious abnormality, atraumatic Eyes: conjunctivae/corneas clear. PERRL, EOM's intact Throat: lips, mucosa, and tongue normal. MMM Neck: supple, symmetrical, trachea midline, and no JVD Lungs: clear to auscultation bilaterally Heart: regular rate and rhythm, S1, S2 normal, no murmur, click, rub or gallop Abdomen: soft, non-tender, non-distended, bowel sounds normal; no masses or organomegaly Extremities: extremities normal, atraumatic, no cyanosis or edema Pulses: 2+ and symmetric Skin: skin color, texture, turgor normal; no rashes or lesions PETE AMIN Mar 28, 2016 09:38
--- NOTE | 2016-03-28 12:05 | Urology Progress Note ---
Assessment/Plan Assessment/Plan 1. Urinary retention. 2. Benign prostatic hypertrophy. 3. Probable neurogenic bladder. uribe indwelling for now flomax awaiting decision re surgery voiding trial later Subjective Allergies: Coded Allergies: No Known Allergies (Unverified , 07/24/12) Subjective all noted Objective Last 24 Hour Vital Signs Date Time Temp Pulse Resp B/P Pulse Ox O2 Delivery O2 Flow Rate FiO2 03/28/16 11:54 97.3 58 18 126/75 95 Room Air 03/28/16 09:00 58 126/75 03/28/16 08:00 97.0 54 18 127/71 97 Room Air 03/28/16 04:00 96.6 80 18 127/61 98 Room Air 03/28/16 00:00 97.3 58 18 117/73 95 Room Air 03/27/16 20:21 97.2 56 18 131/73 94 Room Air 03/27/16 18:40 97.7 03/27/16 16:04 97.7 52 18 121/69 95 Room Air Intake and Output 03/27/16 03/28/16 19:00 07:00 Intake Total 1200 ml 240 ml Output Total 1500 ml Balance 1200 ml -1260 ml Intake Oral 1200 ml 240 ml Output Urine Total 1500 ml Current Medications Medications (Trade) Dose Ordered Sig/Lalito Route PRN Reason Start Time Stop Time Status Last Admin Dose Admin Amlodipine Besylate (Norvasc) 5 mg DAILY ORAL 03/24/16 09:00 04/23/16 08:59 03/27/16 08:14 Aspirin (Ecotrin) 81 mg DAILY ORAL 03/24/16 09:00 04/23/16 08:59 03/27/16 08:14 Atenolol (Tenormin) 50 mg DAILY ORAL 03/24/16 09:00 04/23/16 08:59 03/27/16 08:15 Atorvastatin Calcium (Lipitor) 10 mg BEDTIME ORAL 03/24/16 21:00 04/23/16 20:59 03/27/16 21:58 Bisacodyl (Dulcolax) 10 mg DAILYPRN PRN RECTAL Constipation Second Line 03/25/16 10:45 04/24/16 10:44 Carisoprodol (Soma) 350 mg EVERY 12 HOURS PRN ORAL muscle spasms 03/23/16 22:00 04/22/16 21:59 03/26/16 17:27 Dexamethasone Sodium Phosphate/ Dextrose (Decadron 20mg/ 5ml vial/D5W) 60 ml @ 100 mls/hr Q8H IVPB 03/27/16 07:28 04/24/16 17:59 03/28/16 08:17 Dextrose (Dextrose 50%) STAT PRN IV Hypoglycemia 03/23/16 23:00 04/22/16 22:59 Docusate Sodium (Colace) 100 mg BID ORAL 03/24/16 09:00 04/23/16 08:59 03/27/16 17:41 Gabapentin (Neurontin) 400 mg THREE TIMES A DAY ORAL 03/24/16 09:00 04/23/16 08:59 03/27/16 17:41 Insulin Aspart (NovoLOG) BEFORE MEALS AND HS SUBQ 03/24/16 06:30 04/23/16 06:29 03/28/16 05:39 Irbesartan (Avapro) 75 mg DAILY ORAL 03/24/16 09:00 04/23/16 08:59 03/27/16 08:15 Metformin HCl (Glucophage) 750 mg BID ORAL 03/24/16 09:00 04/23/16 08:59 03/27/16 17:41 Pioglitazone HCl (Actos) 30 mg DAILY PO 03/24/16 09:00 04/23/16 08:59 03/27/16 08:14 Polyethylene Glycol (Miralax) 17 gm DAILY PRN ORAL Constipation First line 03/25/16 10:45 04/24/16 10:44 Tamsulosin HCl 0.4 mg 0.4 mg BEDTIME ORAL 03/25/16 21:00 04/24/16 20:59 03/27/16 21:58 Laboratory Tests 03/27/16 15:00: Prothrombin Time 11.4, Prothromb Time International Ratio 1.1, Activated Partial Thromboplast Time 26 Height (Feet): 5 Height (Inches): 10.00 Weight (Pounds): 252 DAVID PAYAN Mar 28, 2016 12:05
[2016-03-28] MEDS ORDERED: Adenosine Inj IVP ONE (13:15)
--- NOTE | 2016-03-28 13:58 | Anethesia Preoperative Eval ---
Anesthesia Pre-op PMH/ROS General Date of Evaluation: Mar 28, 2016 Anesthesiologist: Mehdi ASA Score: ASA 3 Mallampati Score Class I : Soft palate, uvula, fauces, pillars visible Class II: Soft palate, uvula, fauces visible Class III: Soft palate, base of uvula visible Class IV: Only hard plate visible Mallampati Classification: Class II Surgeon: Angelia Diagnosis: Cord compression, L4-5, L5-S1 Surgical Procedure: L4-5, L5-S1 lumbar decompression Anesthesia History: none Family History: no anesthesia problems Allergies: Coded Allergies: No Known Allergies (Unverified , 07/24/12) Medications: see eMAR Past Medical History Cardiovascular: Reports: CAD, HTN, [place] - 2005, other - HLD, Denies: arrhythmia, valve dz Pulmonary: Denies: COPD, MIGUEL, asthma, other Gastrointestinal/Genitourinary: Denies: CRI, ESRD, GERD, other Neurologic/Psychiatric: Reports: CVA, depression/anxiety, Denies: TIA, dementia, other Endocrine: Reports: DM, Denies: hypothyroidism, other, steroids HEENT: Denies: CAHUILLA (L), CAHUILLA (R), cataract (L), cataract (R), glaucoma, other Hematology/Immune: Denies: DVT, anemia, bleeding disorder, other Musculoskeletal/Integumentary: Reports: other - spinal cord compression, Denies: DDD, DJD, OA, RA, edema Other: obesity PSxH Narrative: lasik, UHR, bilateral TKR's Anesthesia Pre-op Phys. Exam Physician Exam Last Vital Signs Date Time Temp Pulse Resp B/P Pulse Ox O2 Delivery O2 Flow Rate FiO2 03/28/16 11:54 97.3 58 18 126/75 95 Room Air Constitutional: NAD Cardiovascular: RRR Respiratory: CTA Airway Exam Mallampati Score: Class II MO: full ROM: full Anesthesia Pre-op A/P Labs Coagulation Test 03/27/16 15:00 Prothrombin Time 11.4 SEC (9.30-11.50) Prothromb Time International Ratio 1.1 (0.9-1.1) Activated Partial Thromboplast Time 26 SEC (23-33) Studies Pre-op Studies: EKG - sr Risk Assessment & Plan Assessment: ASA IIIE Plan: GA Status Change Before Surgery: No Pre-Antibiotics Drug: TBD MORRISSEY,GIO M.D. Mar 28, 2016 13:58
[2016-03-28] MEDS ORDERED: Lacri-Lube Opth Oint 3.5gm ONE (14:42)
[2016-03-28] MEDS ORDERED: Bacitracin 50000 Units Vial ONE ×2 (14:42→20:24)
[2016-03-28] MEDS ORDERED: Vancomycin 1gm inj IVPB ONE (14:42)
[2016-03-28] MEDS ORDERED: Bupivacaine w/Epi 0.5% 30ml Vial INJ ONE ×2 (14:42→20:24)
[2016-03-28] MEDS ORDERED: Surgicel 4in x 8in TOPIC ONE (14:42)
[2016-03-28] MEDS ORDERED: LR 1000ml ONE (15:00)
[2016-03-28] MEDS ORDERED: NS Irrig 1000ml ONE (15:00)
[2016-03-28] MEDS ORDERED: Midazolam 2mg/2ml Inj ONE (15:00)
[2016-03-28] MEDS ORDERED: Dexamethasone 4mg/ml vial ONE (15:00)
[2016-03-28] MEDS ORDERED: fentaNYL 250mcg/5ml ONE (15:00)
[2016-03-28] MEDS ORDERED: Metoclopramide 10mg/2ml Inj ONE (15:00)
[2016-03-28] MEDS ORDERED: Sterile Water Irrig 1000ml IRRIG ONE (15:00)
[2016-03-28] MEDS ORDERED: Lidocaine 1% MPF 10mg/ml 5ml ONE (15:00)
[2016-03-28] MEDS ORDERED: Etomidate 40mg/20ml Inj IV ONE (15:00)
--- NOTE | 2016-03-28 15:10 | Pre-Procedure Note/Attestation ---
Pre-Procedure Note/Attestation Complete Prior to Procedure Planned Procedure: not applicable Procedure Narrative: Laminectomy Lumbar 1,2,3,4,5,S1. Left sided L34 microdiscectomy, Hardware removal and revision L4,5,S1 with posterolateral fusion Indications for Procedure Pre-Operative Diagnosis: Drop foot, weakness, cauda equina syndrome Attestation I attest that I discussed the nature of the procedure; its benefits; risks and complications; and alternatives (and the risks and benefits of such alternatives ), prior to the procedure, with the patient (or the patient's legal financial services representative). I attest that, if there was a reasonable possibility of needing a blood transfusion, the patient (or the patient's legal financial services representative) was given the [place] Department of Health Services standardized written summary, pursuant to the [place] Blood Safety Act ([place] Health and Safety Code # 1645, as amended). I attest that I re-evaluated the patient just prior to the surgery and that there has been no change in the patient's H&P, except as documented below: PEREZ RO Mar 28, 2016 15:10
--- NOTE | 2016-03-28 15:12 | Brief Operative Note ---
Immediate Post Operative Note Operative Note Chief Complaint: Intractable back pain, Left foot weakness Pre-op Diagnosis: Stenosis, L34 hnp, Drop foot, weakness, cauda equina syndrome Procedure: Laminectomy Lumbar 1,2,3,4,5,S1. Left sided L34 microdiscectomy, Hardware removal and revision L4,5,S1 with posterolateral fusion Post-op Diagnosis: same as pre-op Findings: consistent w/pre-op dx studies Surgeon: Angelia Engineer Byproduct: Tim Ricks Anesthesia: general Specimen: none Complications: none Condition: stable Estimated Blood Loss: minimal Implant(s) used?: Yes - [employer] [facility] PEREZ RO Mar 28, 2016 15:12
[2016-03-28] MEDS ORDERED: Thrombin 5000 units TOPIC ONE (15:30)
[2016-03-28] MEDS ORDERED: Milk of Magnesia 30ml Ud ORAL PRN (16:15)
[2016-03-28] MEDS ORDERED: HYDROmorphone 1mg/ml Carpuject IVP PRN (16:15)
[2016-03-28] MEDS ORDERED: Metoclopramide 10mg/2ml Inj IVP PRN ×2 (16:15→17:00)
[2016-03-28] MEDS ORDERED: HYDROmorphone 1mg/ml Carpuject SUBQ PRN (16:15)
[2016-03-28] MEDS ORDERED: Naloxone 0.4mg/ml Inj IVP PRN (16:15)
--- NOTE | 2016-03-28 16:34 | Diagnostic Imaging Report ---
Indications: Chest pain Technique: Single day single isotope protocol utilized. Initially, resting images obtained using IV administration 11.1 millicuries 99M technetium Myoview. Subsequently, patient underwent adenosine stress testing. See cardiology report for details. During adenosine infusion, IV administration 30.1 mCi 99 M technetium Myoview. However, no images were obtained, patient was taken to surgery. Comparison: None Findings: Per cardiology report, patient experienced symptoms. Per cardiology report, resting EKG demonstrates normal sinus rhythm, cannot rule out inferior MT. No ST-T wave changes were noted during infusion. The resting images demonstrate suggestion of decreased perfusion in the inferolateral wall. Normal cardiac chamber size. As no poststress images were obtained, the ejection fraction cannot be calculated. Impression: Nonischemic clinical response to pharmacologic stress, per cardiology report Nonischemic electrocardiographic response to pharmacologic stress, per cardiology report Very limited exam, due to lack of post stress images being obtained. The resting images demonstrate possible fixed inferolateral perfusion defect, consistent with fossa inferolateral infarct. No ejection fraction could be obtained
[2016-03-28] MEDS ORDERED: LR 1000ml 1,000 ML IVLG SCH (16:47)
--- NOTE | 2016-03-28 16:47 | Immediate Post-Op Evaluation ---
Immediate Post-Op Evalulation Immediate Post-Op Evalulation Procedure: Discectomy L3-4, hardware removal and revision laminectomy/fusion L1 -S1 Date of Evaluation: Mar 28, 2016 Time of Evaluation: 21:32 IV Fluids: 1.4L Blood Products: 0 Estimated Blood Loss: 150 Urinary Output: 200 Blood Pressure Systolic: 119 Blood Pressure Diastolic: 67 Pulse Rate: 76 Respiratory Rate: 18 O2 Sat by Pulse Oximetry: 99 Temperature (Fahrenheit): 98.5 Pain Score (1-10): 0 Nausea: No Vomiting: No Complications 0 Patient Status: awake, reacts, patent, none Hydration Status: adequate Drug: Ancef 2g Given Within 1 Hr of Incision: Yes Time Given: 16:00 GIO MORRISSEY M.D. Mar 28, 2016 16:47
[2016-03-28] MEDS ORDERED: Labetalol 5mg/ml 20ml vial IV PRN (17:00)
[2016-03-28] MEDS ORDERED: fentaNYL 100 mcg/2 mL IV PRN (17:00)
[2016-03-28] MEDS ORDERED: LORazepam Inj 2mg/ml 1ml IV PRN (17:00)
[2016-03-28] MEDS ORDERED: DiphenhydrAMINE 50mg/ml Inj IVP PRN (17:00)
[2016-03-28] MEDS ORDERED: Hydromorphone 0.5mg/0.5ml inj IVP PRN (17:00)
[2016-03-28] MEDS ORDERED: Midazolam 2mg/2ml Inj IVP PRN (17:00)
[2016-03-28] MEDS ORDERED: Propofol 10mg/ml 20ml IV ONE (17:06)
[2016-03-28] MEDS ORDERED: Heparin 5000 units/ml inj ONE (17:06)
[2016-03-28] MEDS: Tamsulosin 0.4mg cap ORAL SCH (21:00)
[2016-03-29] VITALS: BP 127/77
[2016-03-29] MEDS: NS w/KCl 20mEq 1,000 ML IV SCH ×3 (00:05→21:30)
[2016-03-29] MEDS: ceFAZolin sod 1 GM in D5W 55 ML IV SCH ×3 (00:06→16:13)
[2016-03-29] MEDS: Dexamethasone 4mg/ml vial IVP SCH ×4 (01:04→18:16)
[2016-03-29 04:00] VITALS: BP 126/79
[2016-03-29] MEDS: NovoLOG Insulin Flexpen SUBQ SCH ×4 (05:37→21:30)
[2016-03-29] MEDS: Norco 7.5mg/325mg tab ORAL PRN ×2 (07:55→16:23)
[2016-03-29 08:10] VITALS: BP 141/86
[2016-03-29] MEDS: Docusate 100mg cap ORAL SCH ×2 (09:00→18:16)
[2016-03-29] MEDS: Aspirin EC 81mg tab ORAL SCH (09:00)
[2016-03-29] MEDS: metFORMIN 500mg tab ORAL SCH ×2 (09:48→18:16)
--- NOTE | 2016-03-29 10:03 | Urology Progress Note ---
Assessment/Plan Assessment/Plan 1. Urinary retention. 2. Benign prostatic hypertrophy. 3. Probable neurogenic bladder. uribe indwelling for now flomax minimize narcotics voiding trial later Subjective Allergies: Coded Allergies: No Known Allergies (Unverified , 07/24/12) Subjective all noted, s/p lumbar lami/fusion yest Objective Last 24 Hour Vital Signs Date Time Temp Pulse Resp B/P Pulse Ox O2 Delivery O2 Flow Rate FiO2 03/29/16 09:48 52 141/86 03/29/16 09:47 119/72 03/29/16 09:00 52 119/72 03/29/16 08:10 97.3 52 19 141/86 97 Nasal Cannula 2.0 03/29/16 04:00 97.0 50 18 126/79 97 Nasal Cannula 2.0 03/29/16 01:30 98 Nasal Cannula 2.0 28 03/29/16 00:30 Nasal Cannula 2.0 28 03/29/16 00:00 97.2 53 18 127/77 98 Nasal Cannula 2.0 03/28/16 22:30 98.6 67 16 150/86 97 Room Air 03/28/16 22:17 98.6 66 17 141/82 99 Nasal Cannula 2.0 03/28/16 22:07 68 16 145/80 100 Nasal Cannula 2.0 03/28/16 22:00 97.2 59 18 138/82 96 Nasal Cannula 3.0 03/28/16 21:57 75 17 133/80 100 Simple Mask 6.0 03/28/16 21:47 70 17 117/64 100 Simple Mask 6.0 03/28/16 21:37 62 18 111/67 100 Simple Mask 6.0 03/28/16 21:32 65 18 115/67 100 Simple Mask 6.0 03/28/16 21:30 76 18 99 03/28/16 21:27 98.6 67 18 119/67 100 Simple Mask 6.0 03/28/16 14:51 58 126/75 03/28/16 11:54 97.3 58 18 126/75 95 Room Air Intake and Output 03/28/16 03/29/16 19:00 07:00 Intake Total 180 ml 1955 ml Output Total 500 ml 1350 ml Balance -320 ml 605 ml Intake Oral 120 ml IV Total 60 ml 1955 ml Output Urine Total 500 ml 850 ml Drainage Total 350 ml Estimated Blood Loss 150 ml Current Medications Medications (Trade) Dose Ordered Sig/Lalito Route PRN Reason Start Time Stop Time Status Last Admin Dose Admin Acetaminophen (Tylenol) 650 mg Q4H PRN ORAL headache or temp>101 03/28/16 16:15 04/27/16 16:14 Acetaminophen/ Hydrocodone Bitart ([place] 5/325) 1 tab Q3H PRN ORAL pain score 1-3 03/28/16 16:15 04/04/16 16:14 Acetaminophen/ Hydrocodone Bitart ([place] 7.5/325) 1 ea Q3H PRN ORAL pain score 4-6 03/28/16 16:15 04/04/16 16:14 03/29/16 07:55 Acetaminophen/ Hydrocodone Bitart ([place] 7.5/325) 2 ea Q3H PRN ORAL pain scale 7-10 03/28/16 16:15 04/04/16 16:14 Amlodipine Besylate (Norvasc) 5 mg DAILY ORAL 03/24/16 09:00 04/23/16 08:59 03/29/16 09:48 Aspirin (Ecotrin) 81 mg DAILY ORAL 03/24/16 09:00 04/23/16 08:59 03/27/16 08:14 Atenolol (Tenormin) 50 mg DAILY ORAL 03/24/16 09:00 04/23/16 08:59 03/28/16 14:51 Atorvastatin Calcium (Lipitor) 10 mg BEDTIME ORAL 03/24/16 21:00 04/23/16 20:59 03/27/16 21:58 Bisacodyl (Dulcolax) 10 mg DAILYPRN PRN RECTAL Constipation Second Line 03/25/16 10:45 04/24/16 10:44 Carisoprodol (Soma) 350 mg TIDPRN PRN ORAL SPASM 03/28/16 16:15 04/27/16 16:14 Cefazolin Sodium/ Dextrose (Ancef/D5W) 55 ml @ 110 mls/hr Q8H IV 03/29/16 00:00 03/29/16 16:29 03/29/16 07:54 Dexamethasone Sodium Phosphate (Decadron 4mg/ml vial) 4 mg Q6HR IVP 03/29/16 00:00 03/29/16 18:01 03/29/16 05:30 Dextrose (Dextrose 50%) STAT PRN IV Hypoglycemia 03/23/16 23:00 04/22/16 22:59 Docusate Sodium (Colace) 100 mg TWICE A DAY ORAL 03/29/16 09:00 04/28/16 08:59 Gabapentin (Neurontin) 400 mg THREE TIMES A DAY ORAL 03/24/16 09:00 04/23/16 08:59 03/29/16 09:49 Hydromorphone HCl (Dilaudid) 1 mg Q4H PRN SUBQ Mild Pain (Pain Scale 1-3) 03/28/16 16:15 04/04/16 16:14 Hydromorphone HCl (Dilaudid) 2 mg Q3H PRN SUBQ Severe Pain (Pain Scale 7-10) 03/28/16 16:15 04/04/16 16:14 03/29/16 01:04 Hydromorphone HCl (Dilaudid) 2 mg Q4H PRN SUBQ Moderate Pain (Pain Scale 4-6) 03/28/16 16:15 04/04/16 16:14 Hydromorphone HCl 1 mg 1 mg Q2H PRN IVP Breakthrough Pain 03/28/16 16:15 04/04/16 16:14 Insulin Aspart (NovoLOG) BEFORE MEALS AND HS SUBQ 03/24/16 06:30 04/23/16 06:29 03/29/16 05:37 Irbesartan (Avapro) 75 mg DAILY ORAL 03/24/16 09:00 04/23/16 08:59 03/29/16 09:47 Magnesium Hydroxide (Mom) 30 ml QIDPRN PRN ORAL Constipation 03/28/16 16:15 04/27/16 16:14 Metformin HCl (Glucophage) 750 mg BID ORAL 03/24/16 09:00 04/23/16 08:59 03/29/16 09:48 Metoclopramide HCl (Reglan) 10 mg Q6H PRN IVP Nausea & Vomiting 03/28/16 16:15 04/27/16 16:14 Naloxone HCl (Narcan) 0.1 mg PRN PRN IVP RR<12/min, pt unarousable 03/28/16 16:15 04/27/16 16:14 Ondansetron HCl (Zofran) 4 mg Q6H PRN IVP Nausea & Vomiting 03/28/16 16:15 04/27/16 16:14 Pioglitazone HCl (Actos) 30 mg DAILY PO 03/24/16 09:00 04/23/16 08:59 03/29/16 09:49 Polyethylene Glycol (Miralax) 17 gm DAILY PRN ORAL Constipation First line 03/25/16 10:45 04/24/16 10:44 Sodium Chloride (NS w/KCl 20mEq) 1,000 ml @ 100 mls/hr Q10H IV 03/29/16 00:00 04/28/16 00:00 03/29/16 00:05 Tamsulosin HCl 0.4 mg 0.4 mg BEDTIME ORAL 03/25/16 21:00 04/24/16 20:59 03/27/16 21:58 Temazepam (Restoril) 15 mg HSPRN PRN ORAL Insomnia 03/28/16 16:15 04/04/16 16:14 Height (Feet): 5 Height (Inches): 10.00 Weight (Pounds): 252 DAVID PAYAN Mar 29, 2016 10:03
--- NOTE | 2016-03-29 10:07 | Diagnostic Imaging Report ---
Indication: PAIN Technique: Intraoperative images Comparison: None Findings: Intraoperative images document surgical tools posterior to the lower lumbar spine and presence of hardware. A surgical tool is on the final image located posterior to the inferior L3 vertebral body Impression: Intraoperative imaging, as described
--- NOTE | 2016-03-29 10:45 | Cardiology Report ---
APPROVED REPORT EXAM: Two-dimensional and M-mode echocardiogram with Doppler and color Doppler. INDICATION CAD M-Mode DIMENSIONS IVSd0.8 (0.7-1.1cm)Left Atrium (MM)3.9 (1.6-4.0cm) LVDd5.5 (3.5-5.6cm)Aortic Root2.9 (2.0-3.7cm) PWd1.2 (0.7-1.1cm)Aortic Cusp Exc.2.4 (1.5-2.0cm) LVDs3.8 (2.5-4.0cm) PWs1.3 cm Normal left ventricular chamber size, systolic function and wall motion. Left ventricular ejection fraction estimated to be 60-65%. Mild left ventricular hypertrophy. No evidence of pericardial fat or effusion. Right cardiac chamber sizes are within normal limits. Mild left atrial enlargement by 2D. Focal aortic valve sclerosis with adequate cusp excursion Mild aortic root enlargement by 2D. Thickened mitral valve leaflets with normal excursion. Mild mitral annulus and aortic root calcification. Pulmonic valve not well visualized. Normal tricuspid valve structure. IVC is normal in size with physiologic collapse. A color flow and spectral Doppler study was performed and revealed: Trace aortic regurgitation. Trace mitral regurgitation. Left ventricular diastolic dysfunction grade 1. Moderate tricuspid regurgitation. Tricuspid systolic velocities suggests peak right ventricular systolic pressure of 32 mmHg
--- NOTE | 2016-03-29 11:12 | Neurology Progress Note ---
Interim History Interim History Interim History Mr. Qiu feels a little better. He had his LS decompressive surgery yesterday. The operation was uneventful. He feels that the legs are about the same - with the left leg weaker than the right. The altered sensation in the left leg is also about the same. The altered sensation in his saddle area is also about the same. He still has a Cabral catheter in. He denies any new neurologic symptoms. Review of Systems Neuro Review of Systems Benign. Objective Physical Exam Last Vital Signs Date Time Temp Pulse Resp B/P Pulse Ox O2 Delivery O2 Flow Rate FiO2 03/29/16 09:48 52 119/72 03/29/16 08:54 97.3 03/29/16 08:10 19 97 Nasal Cannula 2.0 03/29/16 01:30 28 Neurologic Exam Objective PHYSICAL EXAMINATION: GENERAL: He is a well-developed, well-nourished, slightly obese, gentleman, lying in bed, no acute distress. HEAD: Normocephalic and atraumatic. EENT: Examination benign. NECK: No neck rigidity was observed. NEUROLOGICAL EXAMINATION: MENTAL STATUS EXAMINATION: He was alert and awake. He was oriented to person, place, and time. He was able to recall 3/3 words immediately after 1 minute and after 3 minutes on the second trial. He was able to remember presidents Trump through Viral. His mathematical skills were fairly good. His visuospatial function was preserved. SPEECH: He had no dysarthria. LANGUAGE: He had no aphasia. CRANIAL NERVE EXAMINATION: II: The visual camargo were intact to confrontation testing. III, IV & : The external ocular movements were full and the pupils 3 mm in diameter, equal, round, regular and reactive to light. V: He had normal facial sensations in the temporales, masseters, and pterygoids functioned normally. VII: He had normal facial expression and no facial asymmetry. VIII: He able to hear well bilaterally and had no nystagmus. IX: The palate moved symmetrically on phonation. X: He had no hoarseness of voice. XI: The sternocleidomastoids and trapezii functioned normally. XII: The tongue was in the midline without any fasciculations or atrophy. MOTOR SYSTEM: The tone was normal in all four extremities. Examination of muscle mass revealed no focal wasting. Examination of power revealed G 5/5 power in both upper extremities. In the lower extremities he had: G 3+/5 on the right side, and G 3-/5 on the left side in the iliopsoas. G 5/5 on the right side, and G 5-/5power on the left side in the quadriceps. G 5/5 power on the right side and grade 4+/5 power on the left side, in the hamstrings. G 4+/5 power on the right side, and G 3-/5 power on the left side in the ankle dorsiflexors, and toe extensors. G 5-/5 power on the right side and G 4-/5 power on the left side in the ankle plantar flexors and toe flexors. SENSORY EXAMINATION: He had altered sensations to pinprick and light touch in the entire left lower extremity with preferential involvement of the left L5 nerve root. In addition, he also had altered sensations in the saddle area. REFLEXES: Trace+ and bilaterally symmetrical at the biceps, triceps, and brachioradialis. 0 at both knees and ankles. The plantar responses were flexor bilaterally. STANCE: He stood up with support. GAIT: He walked with support with a paraplegic gait involving the left side more than the right side. Impression/Recommendations Diagnostic Impression 1. Mr. Eliane Qiu is a 66-year-old, right-handed, gentleman, who does have a past history of hypertension, diabetes mellitus, dyslipidemia, osteoarthritis involving both knees, fractures of both his arms that were treated, lumbosacral spine surgery two years ago and cervical spine surgery one year ago, who approximately one month ago started to have some increased low back pain and then in the earlier part of last week developed problems moving his right leg, and on 03/22/2016 developed significant left leg weakness, increased low back pain and altered sensations in his left leg. He was hospitalized on 03/24/2016, started on steroids and was given morphine for pain and then developed inability to void urine. 2. On 03/28/16 he had a "discectomy at L3-4, hardware removal and revision of laminectomy/fusion from L1 through S1." 3. He feels about the same as preoperatively today. The legs are still weak and the altered sensations are still present. 4. On neurological examination, at this time, he does demonstrate a significant paraparesis involving the left side significantly more than the right side and the L5 muscles preferentially. He also has altered sensations to pinprick and light touch involving his entire left lower extremity with preferential involvement of the left L5 nerve root, and in addition his sacral area. The deep tendon reflexes are significantly diminished in the upper extremities and lost in the lower extremities. 4. An MRI scan of the lumbosacral spine performed on 03/26/2016, reveals severe L3-4 spinal stenosis, moderate L2-3 spinal stenosis and milder L1-2 spinal stenosis. 5. The MRI of the C-spine performed on 03/26/16 reveals post-operative changes but no cord pathology. 6. The MRI of the T-spine performed on 03/26/16 reveals no cord pathology. 7. The MRI of the brain performed on 03/26/16 reveals atrophy but no acute intracranial pathology. 8. The patient's history and neurological examination, and MRI scan findings are most compatible with a severe lumbosacral polyradiculopathy involving the left side more than the right due to the severe L3-4 spinal stenosis and moderate L2-3 spinal stenosis. 9. His LS spine has now been surgically decompressed and stabilized. Recommendations 1. Continue present management. 2. Continue to keep active with PT/OT. 3. Consider acute rehab in the near future.. Frances Chin M.D., M.S.P.Kush. FRANCES CHIN Mar 29, 2016 11:12
[2016-03-29 12:08] VITALS: BP 113/69
[2016-03-29 16:00] VITALS: BP 117/68
--- NOTE | 2016-03-29 18:52 | General Progress Note ---
Assessment/Plan Problem List: (1) Foot drop, left Assessment & Plan: Cont Decadron 10mg IV q8 PT/OT Pain control Supp care Pt had a recent CT spine as outpt that was normal, no indication for surgical intervention, case d/w Spine surgery, Dr. Galan extensively MRI lumbar spine shows severe stenosis at L3, d/w Neurology, no evidence of epidural abscess or cauda equina Pt needs urgent decompression, d/w Dr. Galan, unfortunately insurance company not authorizing MRI brain neg for acute CVA Given need for urgent surgery for L3 stenosis, nuc stress test was ordered for today for medical/cardiac pre-op evaluation and optimization ICD Codes: M21.372 - Foot drop, left foot SNOMED: 9901424, 74258040 (2) Lumbar herniated disc Assessment & Plan: As above ICD Codes: M51.26 - Other intervertebral disc displacement, lumbar region SNOMED: 848553752, 92180838 (3) Hyperlipidemia Assessment & Plan: Cont statin ICD Codes: E78.5 - Hyperlipidemia SNOMED: 13562401 (4) Hypertension Assessment & Plan: Cont BP meds ICD Codes: I10 - Hypertension SNOMED: 19384511 (5) Diabetes mellitus Assessment & Plan: Cont sliding scale Expect temporary hyperglycemia with steroid dose May need long acting insulin temporarily Diabetic diet ICD Codes: E11.9 - Type 2 diabetes mellitus without complications SNOMED: 99668617 (6) Urinary retention Assessment & Plan: Cont uribe catheter for now Cont flomax Consult urology ICD Codes: R33.9 - Retention of urine, unspecified SNOMED: 277345404 Subjective Date patient seen: Mar 29, 2016 Time patient seen: 18:51 ROS Limited/Unobtainable: No Allergies: Coded Allergies: No Known Allergies (Unverified , 07/24/12) Subjective Today he states his foot drop on Left is the same, still with uribe catheter, still with back pain Objective Last 24 Hour Vital Signs Date Time Temp Pulse Resp B/P Pulse Ox O2 Delivery O2 Flow Rate FiO2 03/29/16 16:00 98.6 50 18 117/68 94 Room Air 03/29/16 13:47 97.3 03/29/16 13:05 60 113/69 03/29/16 12:08 97.3 60 18 113/69 96 Nasal Cannula 2.0 03/29/16 09:47 119/72 2/16/17 09:00 52 119/72 03/29/16 08:54 97.3 03/29/16 08:10 97.3 52 19 141/86 97 Nasal Cannula 2.0 03/29/16 06:44 97 Nasal Cannula 2.0 03/29/16 06:43 Nasal Cannula 2.0 03/29/16 04:00 97.0 50 18 126/79 97 Nasal Cannula 2.0 03/29/16 01:30 98 Nasal Cannula 2.0 28 03/29/16 00:30 Nasal Cannula 2.0 28 03/29/16 00:00 97.2 53 18 127/77 98 Nasal Cannula 2.0 03/28/16 22:30 98.6 67 16 150/86 97 Room Air 03/28/16 22:17 98.6 66 17 141/82 99 Nasal Cannula 2.0 03/28/16 22:07 68 16 145/80 100 Nasal Cannula 2.0 03/28/16 22:00 97.2 59 18 138/82 96 Nasal Cannula 3.0 03/28/16 21:57 75 17 133/80 100 Simple Mask 6.0 03/28/16 21:47 70 17 117/64 100 Simple Mask 6.0 03/28/16 21:37 62 18 111/67 100 Simple Mask 6.0 03/28/16 21:32 65 18 115/67 100 Simple Mask 6.0 03/28/16 21:30 76 18 99 03/28/16 21:27 98.6 67 18 119/67 100 Simple Mask 6.0 Intake and Output 03/28/16 03/29/16 19:00 07:00 Intake Total 180 ml 1955 ml Output Total 500 ml 1350 ml Balance -320 ml 605 ml Intake Oral 120 ml IV Total 60 ml 1955 ml Output Urine Total 500 ml 850 ml Drainage Total 350 ml Estimated Blood Loss 150 ml Height (Feet): 5 Height (Inches): 10.00 Weight (Pounds): 252 Objective General: alert, cooperative, no distress, appears stated age Head: normocephalic, without obvious abnormality, atraumatic Eyes: conjunctivae/corneas clear. PERRL, EOM's intact Throat: lips, mucosa, and tongue normal. MMM Neck: supple, symmetrical, trachea midline, and no JVD Lungs: clear to auscultation bilaterally Heart: regular rate and rhythm, S1, S2 normal, no murmur, click, rub or gallop Abdomen: soft, non-tender, non-distended, bowel sounds normal; no masses or organomegaly Extremities: extremities normal, atraumatic, no cyanosis or edema Pulses: 2+ and symmetric Skin: skin color, texture, turgor normal; no rashes or lesions PETE AMIN Mar 29, 2016 18:52
--- NOTE | 2016-03-29 18:54 | General Progress Note ---
Assessment/Plan Problem List: (1) Foot drop, left Assessment & Plan: - s/p Laminectomy Lumbar 1,2,3,4,5,S1. Left sided L34 microdiscectomy, Hardware removal and revision L4,5,S1 with posterolateral fusion Post operative recommendations include: - encourage mobilization/ambulation - encourage incentive spirometry to optimize pulmonary hygiene - DVT/GI prophylaxis as appropriate - ctm CBC and hemodynamics - ctm electrolytes, adjust/replete prn - PT/OT/ST, if indicated - pain control, supportive care, bowel regimen - DC planning ICD Codes: M21.372 - Foot drop, left foot SNOMED: 8623251, 77158793 (2) Lumbar herniated disc Assessment & Plan: As above ICD Codes: M51.26 - Other intervertebral disc displacement, lumbar region SNOMED: 752838551, 17162306 (3) Hyperlipidemia Assessment & Plan: Cont statin ICD Codes: E78.5 - Hyperlipidemia SNOMED: 85286212 (4) Hypertension Assessment & Plan: Cont BP meds ICD Codes: I10 - Hypertension SNOMED: 59066587 (5) Diabetes mellitus Assessment & Plan: Cont sliding scale Expect temporary hyperglycemia with steroid dose May need long acting insulin temporarily Diabetic diet ICD Codes: E11.9 - Type 2 diabetes mellitus without complications SNOMED: 06887611 (6) Urinary retention Assessment & Plan: Cont uribe catheter for now Cont flomax Consult urology ICD Codes: R33.9 - Retention of urine, unspecified SNOMED: 669634718 Subjective Date patient seen: Mar 29, 2016 Time patient seen: 18:52 ROS Limited/Unobtainable: No Allergies: Coded Allergies: No Known Allergies (Unverified , 07/24/12) Subjective s/p Laminectomy Lumbar 1,2,3,4,5,S1. Left sided L34 microdiscectomy, Hardware removal and revision L4,5,S1 with posterolateral fusion POD#1, no periop or postop complications. No chest pain or dyspnea, still with uribe cath, doing better today Objective Last 24 Hour Vital Signs Date Time Temp Pulse Resp B/P Pulse Ox O2 Delivery O2 Flow Rate FiO2 03/29/16 16:00 98.6 50 18 117/68 94 Room Air 03/29/16 13:47 97.3 03/29/16 13:05 60 113/69 03/29/16 12:08 97.3 60 18 113/69 96 Nasal Cannula 2.0 03/29/16 09:47 119/72 03/29/16 09:00 52 119/72 03/29/16 08:54 97.3 03/29/16 08:10 97.3 52 19 141/86 97 Nasal Cannula 2.0 03/29/16 06:44 97 Nasal Cannula 2.0 03/29/16 06:43 Nasal Cannula 2.0 03/29/16 04:00 97.0 50 18 126/79 97 Nasal Cannula 2.0 03/29/16 01:30 98 Nasal Cannula 2.0 28 03/29/16 00:30 Nasal Cannula 2.0 28 03/29/16 00:00 97.2 53 18 127/77 98 Nasal Cannula 2.0 03/28/16 22:30 98.6 67 16 150/86 97 Room Air 03/28/16 22:17 98.6 66 17 141/82 99 Nasal Cannula 2.0 03/28/16 22:07 68 16 145/80 100 Nasal Cannula 2.0 03/28/16 22:00 97.2 59 18 138/82 96 Nasal Cannula 3.0 03/28/16 21:57 75 17 133/80 100 Simple Mask 6.0 03/28/16 21:47 70 17 117/64 100 Simple Mask 6.0 03/28/16 21:37 62 18 111/67 100 Simple Mask 6.0 03/28/16 21:32 65 18 115/67 100 Simple Mask 6.0 03/28/16 21:30 76 18 99 03/28/16 21:27 98.6 67 18 119/67 100 Simple Mask 6.0 Intake and Output 03/28/16 03/29/16 19:00 07:00 Intake Total 180 ml 1955 ml Output Total 500 ml 1350 ml Balance -320 ml 605 ml Intake Oral 120 ml IV Total 60 ml 1955 ml Output Urine Total 500 ml 850 ml Drainage Total 350 ml Estimated Blood Loss 150 ml Height (Feet): 5 Height (Inches): 10.00 Weight (Pounds): 252 Objective General: alert, cooperative, no distress, appears stated age Head: normocephalic, without obvious abnormality, atraumatic Eyes: conjunctivae/corneas clear. PERRL, EOM's intact Throat: lips, mucosa, and tongue normal. MMM Neck: supple, symmetrical, trachea midline, and no JVD Lungs: clear to auscultation bilaterally Heart: regular rate and rhythm, S1, S2 normal, no murmur, click, rub or gallop Abdomen: soft, non-tender, non-distended, bowel sounds normal; no masses or organomegaly Extremities: extremities normal, atraumatic, no cyanosis or edema Pulses: 2+ and symmetric Skin: skin color, texture, turgor normal; no rashes or lesions PETE AMIN Mar 29, 2016 18:54
[2016-03-29 20:00] VITALS: BP 118/72
--- NOTE | 2016-03-29 20:10 | Operative Note - Dictated ---
DATE OF OPERATION: 03/28/2016 SURGEON: Clint Galan M.D. URBAN ANTHROPOLOGIST: DUSTY Pablo. ANESTHESIOLOGIST: Dr. Hall PREOPERATIVE DIAGNOSES: 1. L3-L4 disk herniation. 2. Lumbar foraminal stenosis, L4-L5, L5-S1, L1. 3. Lumbar central stenosis, L2, L3, L4, L5. 4. Neurogenic claudication. 5. Ongoing cauda equina syndrome. 6. Persistent back pain. 7. Left-sided dropfoot. POSTOPERATIVE DIAGNOSES: 1. L3-L4 disk herniation. 2. Lumbar foraminal stenosis, L4-L5, L5-S1, L1. 3. Lumbar central stenosis, L2, L3, L4, L5. 4. Neurogenic claudication. 5. Ongoing cauda equina syndrome. 6. Persistent back pain. 7. Left-sided dropfoot. PROCEDURE PERFORMED: 1. Lumbar laminectomy, L2, L3, L4, L5, and S1. 2. Posterolateral fusion, L2-L3, L3-L4, L4-L5, L5-S1 with allograft bone. 3. Microdiskectomy, left sided, L3-L4. 4. Corona-Ramos osteotomy, L4-L5 and L5-S1. 5. Balderas laminectomy and facetectomy, L4-L5 and L5-S1. 6. Dissection through altered and scarred anatomy. 7. Modifier 22; added difficulty because of obesity. ESTIMATED BLOOD LOSS: A 150 mL. COMPLICATIONS: None. INDICATIONS FOR SURGERY: The patient is a 66-year-old male with history of L3-L4 disk herniation, prior fusion, L4-L5 and L5-S1 in 2014, who presented for left-sided dropfoot and ongoing cauda equina syndrome. He had worsening symptoms and despite these, we were unable to obtain authorization from his insurance company despite multiple attempts, and this is well documented in our chart. On the same day that we finally obtained authorization from his insurer, we performed the surgical procedure well into the night. He has history well documented on our chart of intractable back pain coupled with left-sided dropfoot and new-onset development while in the hospital of cauda equina syndrome consistent with testicular anesthesia, sacral anesthesia, and weakness in the left lower extremity. He developed worsening of these pains while inhouse despite pain medication and narcotic medication as well as high-dose steroids. We had a long discussion with the patient and his family regarding the severity of these symptoms and the need for urgent decompression. He understood these symptoms were in all likelihood permanent and the goal of surgery was centered on avoiding any future issues proceeding to the other extremity or becoming more prominent. We reviewed with him the risks of surgery. These are documented in the form of surgical consent which he understands and signed. Briefly, the risks of surgery include but are not limited to infection, bleeding, need for future surgery, persistent pain, the need for further procedures, the possibility for permanence of the footdrop, persistent back pain, need for revision surgery or future fusions, need for interbody procedures as this is mainly a posterior-based approach to allow for decompression, paralysis, weakness, dural tears, leak of CSF, drainage postoperatively, infection. He understood these risks along with other risks as reviewed with him and presents today for definitive management in the form of lumbar decompression, discectomy, and posterolateral fusion. INTRAOPERATIVE FINDINGS: Severe difficulty of the procedure as a result of obesity, difficulty with related concerns, significant amount of dissection through altered and scarred anatomy, severe central and neuroforaminal stenosis of L2, L3, L4, L5, and S1 throughout the central elements as well as throughout the neural foramina. The central spinal canal demonstrated severe stenosis with serpentine appearance of the actual thecal sac itself, which was significant in that it was easily the most stenosed spinal canal I have seen in over 10 years. DESCRIPTION OF PROCEDURE: Under the benefits of general endotracheal anesthesia, the patient was placed in prone position on the Cuate table with the assistance of the operative team. All bony prominences were padded. Bilateral SCDs were placed for DVT prophylaxis. Surgical time-out was called which corroborated our intended procedure. The wound was prepped and draped in the usual sterile fashion. An incision based on his prior incision was created and taken down through the skin and subcutaneous tissues. I should note there was added difficulty of the procedure entirely due to his obesity and difficulty as a result of the length of instruments and operating at such depth throughout the entire procedure. He had a prior fusion at L4-L5 and L5-S1. This was evaluated and deemed to be a stable fusion with significant posterolateral bony mass throughout the L4-S1 margins. The posterolateral fusion mass, L4-S1 was evaluated and then taken down to allow for complete decompression. We performed an intraoperative radiograph which confirmed placement through the lumbar spine and the patient had a cell saver placed to allow for any excessive blood loss. There was significant amount of bony overgrowth throughout his posterolateral fusion mass and this was addressed also. We next turned our attention to our laminectomy having marked those levels. Laminectomy was performed at lamina 2, 3, 4, 5, and then margin of S1 in the exact same fashion using a Leksell rongeur and Midas-Marek at each level to thin up the lamina itself and take it down to a thin wafer-sized level at each lamina along with the intervening ligamentum flavum. Laminectomy was performed and completed using combination of straight and angled curettage, Kerrison 3 and Kerrison 4 rongeurs. The lateral margin of the thecal sac bilaterally was visualized and decompressed until this aspect weaving a significant portion of the pars bilaterally to eliminate any potential for instability. The entire length of the thecal sac was serpentined under the severity of the stenosis throughout the ligamentum flavum and bony ankylosis. After the completion of the laminectomy, the complete length of the thecal sac was completely decompressed and reinflated. There was complete decompression and takedown of all intervening bony and ligamentous tissue which was severely difficult as a result of the increased severity and pyknotic canal. We next turned our attention to our Corona-Ramos osteotomy at L4-L5 and L5-S1. At these levels, the pedicle was encountered. The facetectomy was performed using Midas-Marek drillbit, Kerrison3 and Kerrison 4 rongeurs until complete and thorough takedown of the facet joints was removed allowing for decompression and visualization of the exiting neural laminas throughout their extent. I should note the laminectomy was performed at L2, L3, L4, L5, and S1. We next turned our attention to posterolateral fusion. This was performed throughout the pars, facet joint, transverse processes bilaterally using Midas-Marek drillbit followed by local bone taken from laminectomy coupled and mixed with allograft [place] bone. This was placed into our posterolateral gutters bilaterally. We next turned our attention to L3-L4 microdiscectomy. This was performed in standard fashion using Coleman 4 and nerve root retractor. A large broad-based disk herniation was encountered. This was resected with a combination of #15 blade scalpel, downgoing curettage, narrow pituitary's. This base was irrigated on three occasions and through this, we encountered cartilaginous endplates which were removed as a result of the irrigation and loose tissue was removed. We next turned our attention to closure. Meticulous hemostasis was obtained using Floseal which was afterwards removed and there was still some residual bleeding, so a medium Hemovac drain was placed deep to the fascia. Then we placed vancomycin powder for antibiotic prophylaxis. Closure consisted of 1-0 Vicryl to the fascia, 2-0 Vicryl for the subcutaneous skin, and breana for superficial skin followed by Dermabond. The patient tolerated the procedure well and we had readmitted to the floor for further monitoring. Clint Galan M.D. DR: Lesa JOB#: [id number] CC: [email or web address]
[2016-03-29] MEDS: Tamsulosin 0.4mg cap ORAL SCH (21:30)
[2016-03-30] VITALS: BP 107/66
[2016-03-30 04:00] VITALS: BP 113/66
[2016-03-30] MEDS: NS w/KCl 20mEq 1,000 ML IV SCH ×2 (05:33→16:33)
[2016-03-30] MEDS: NovoLOG Insulin Flexpen SUBQ SCH ×4 (06:15→21:11)
[2016-03-30 08:00] VITALS: BP 116/66
[2016-03-30] MEDS: Aspirin EC 81mg tab ORAL SCH (09:04)
[2016-03-30] MEDS: Docusate 100mg cap ORAL SCH ×2 (09:04→18:54)
[2016-03-30] MEDS: Norco 7.5mg/325mg tab ORAL PRN (09:05)
[2016-03-30] MEDS: metFORMIN 500mg tab ORAL SCH ×2 (09:05→18:54)
--- NOTE | 2016-03-30 10:08 | Urology Progress Note ---
Assessment/Plan Assessment/Plan 1. Urinary retention. 2. Benign prostatic hypertrophy. 3. Probable neurogenic bladder. failed voiding trial and uribe back indwelling flomax, increase dose minimize narcotics repeat voiding trial later Subjective Allergies: Coded Allergies: No Known Allergies (Unverified , 07/24/12) Subjective all noted, uribe was removed yest, unable to void, reinserted last night Objective Last 24 Hour Vital Signs Date Time Temp Pulse Resp B/P Pulse Ox O2 Delivery O2 Flow Rate FiO2 03/30/16 09:05 116/66 03/30/16 09:04 62 116/66 03/30/16 09:04 62 116/66 03/30/16 08:00 97.7 62 23 116/66 96 Room Air 03/30/16 04:00 98.1 54 18 113/66 95 Room Air 03/30/16 00:00 98.1 55 16 107/66 95 Room Air 03/29/16 20:00 97.7 51 17 118/72 95 Room Air 03/29/16 16:00 98.6 50 18 117/68 94 Room Air 03/29/16 13:47 97.3 03/29/16 13:05 60 113/69 03/29/16 12:08 97.3 60 18 113/69 96 Nasal Cannula 2.0 Intake and Output 03/29/16 03/30/16 19:00 07:00 Intake Total 760 ml 240 ml Output Total 970 ml 870 ml Balance -210 ml -630 ml Intake Oral 760 ml 240 ml Output Urine Total 900 ml 800 ml Drainage Total 70 ml 70 ml Current Medications Medications (Trade) Dose Ordered Sig/Lalito Route PRN Reason Start Time Stop Time Status Last Admin Dose Admin Acetaminophen (Tylenol) 650 mg Q4H PRN ORAL headache or temp>101 03/28/16 16:15 04/27/16 16:14 Acetaminophen/ Hydrocodone Bitart ([place] 5/325) 1 tab Q3H PRN ORAL pain score 1-3 03/28/16 16:15 04/04/16 16:14 Acetaminophen/ Hydrocodone Bitart ([place] 7.5/325) 1 ea Q3H PRN ORAL pain score 4-6 03/28/16 16:15 04/04/16 16:14 03/29/16 07:55 Acetaminophen/ Hydrocodone Bitart ([place] 7.5/325) 2 ea Q3H PRN ORAL pain scale 7-10 03/28/16 16:15 04/04/16 16:14 03/30/16 09:05 Amlodipine Besylate (Norvasc) 5 mg DAILY ORAL 03/24/16 09:00 04/23/16 08:59 03/30/16 09:04 Aspirin (Ecotrin) 81 mg DAILY ORAL 03/24/16 09:00 04/23/16 08:59 03/30/16 09:04 Atenolol (Tenormin) 50 mg DAILY ORAL 03/24/16 09:00 04/23/16 08:59 03/30/16 09:04 Atorvastatin Calcium (Lipitor) 10 mg BEDTIME ORAL 03/24/16 21:00 04/23/16 20:59 03/29/16 21:30 Bisacodyl (Dulcolax) 10 mg DAILYPRN PRN RECTAL Constipation Second Line 03/25/16 10:45 04/24/16 10:44 Carisoprodol (Soma) 350 mg TIDPRN PRN ORAL SPASM 03/28/16 16:15 04/27/16 16:14 Dextrose (Dextrose 50%) STAT PRN IV Hypoglycemia 03/23/16 23:00 04/22/16 22:59 Docusate Sodium (Colace) 100 mg TWICE A DAY ORAL 03/29/16 09:00 04/28/16 08:59 03/30/16 09:04 Gabapentin (Neurontin) 400 mg THREE TIMES A DAY ORAL 03/24/16 09:00 04/23/16 08:59 03/30/16 09:05 Hydromorphone HCl (Dilaudid) 1 mg Q2H PRN IVP Breakthrough Pain 03/28/16 16:15 04/04/16 16:14 Hydromorphone HCl (Dilaudid) 1 mg Q4H PRN SUBQ Mild Pain (Pain Scale 1-3) 03/28/16 16:15 04/04/16 16:14 Hydromorphone HCl (Dilaudid) 2 mg Q3H PRN SUBQ Severe Pain (Pain Scale 7-10) 03/28/16 16:15 04/04/16 16:14 03/29/16 01:04 Hydromorphone HCl (Dilaudid) 2 mg Q4H PRN SUBQ Moderate Pain (Pain Scale 4-6) 03/28/16 16:15 04/04/16 16:14 Insulin Aspart (NovoLOG) BEFORE MEALS AND HS SUBQ 03/24/16 06:30 04/23/16 06:29 03/30/16 06:15 Irbesartan (Avapro) 75 mg DAILY ORAL 03/24/16 09:00 04/23/16 08:59 03/30/16 09:05 Magnesium Hydroxide (Mom) 30 ml QIDPRN PRN ORAL Constipation 03/28/16 16:15 04/27/16 16:14 Metformin HCl (Glucophage) 750 mg BID ORAL 03/24/16 09:00 04/23/16 08:59 03/30/16 09:05 Metoclopramide HCl (Reglan) 10 mg Q6H PRN IVP Nausea & Vomiting 03/28/16 16:15 04/27/16 16:14 Naloxone HCl (Narcan) 0.1 mg PRN PRN IVP RR<12/min, pt unarousable 03/28/16 16:15 04/27/16 16:14 Ondansetron HCl (Zofran) 4 mg Q6H PRN IVP Nausea & Vomiting 03/28/16 16:15 04/27/16 16:14 Pioglitazone HCl (Actos) 30 mg DAILY PO 03/24/16 09:00 04/23/16 08:59 03/30/16 09:04 Polyethylene Glycol (Miralax) 17 gm DAILY PRN ORAL Constipation First line 03/25/16 10:45 04/24/16 10:44 Sodium Chloride (NS w/KCl 20mEq) 1,000 ml @ 100 mls/hr Q10H IV 03/29/16 00:00 04/28/16 00:00 03/30/16 05:33 Tamsulosin HCl 0.4 mg 0.4 mg BEDTIME ORAL 03/25/16 21:00 04/24/16 20:59 03/29/16 21:30 Temazepam (Restoril) 15 mg HSPRN PRN ORAL Insomnia 03/28/16 16:15 04/04/16 16:14 Height (Feet): 5 Height (Inches): 10.00 Weight (Pounds): 252 Objective exam, urine clear BAMSHAD,DAVID Mar 30, 2016 10:07
[2016-03-30 12:03] VITALS: BP 97/56
--- NOTE | 2016-03-30 13:14 | 48 Hour Post Anesthesia Eval ---
Post Anesthesia Evaluation Procedure: Discectomy L3-4, hardware removal and revision laminectomy/fusion L1 -S1 Date of Evaluation: Mar 28, 2016 Time of Evaluation: 08:10 Blood Pressure Systolic: 116 0: 71 Pulse Rate: 72 Respiratory Rate: 20 Temperature (Fahrenheit): 97.6 O2 Sat by Pulse Oximetry: 99 Airway: patent Nausea: No Vomiting: No Pain Intensity: 2 Hydration Status: adequate Cardiopulmonary Status: stable Mental Status/LOC: patient returned to baseline Follow-up Care/Observations: n/a Post-Anesthesia Complications: none Follow-up care needed: N/A SHANTELLE SARAVIA M.D. Mar 30, 2016 13:14
--- NOTE | 2016-03-30 14:17 | Neurology Progress Note ---
Interim History Interim History Interim History Mr. Qiu feels better. He just got back from a walk with his physical therapist. He is steadier on his feet. He still complains of back pain. He feels that the legs are a little stronger. The altered sensations are now in the back of both legs. The altered sensations in his saddle area are the same. He still has a Cabral catheter in. He denies any new neurologic symptoms. Review of Systems Neuro Review of Systems Benign. Objective Physical Exam Last Vital Signs Date Time Temp Pulse Resp B/P Pulse Ox O2 Delivery O2 Flow Rate FiO2 03/30/16 13:50 97.6 03/30/16 13:14 72 20 99 03/30/16 12:03 97/56 Room Air 03/29/16 12:08 2.0 03/29/16 01:30 28 Neurologic Exam Objective PHYSICAL EXAMINATION: GENERAL: He is a well-developed, well-nourished, slightly obese, gentleman, sitting up at the edge of his bed, no acute distress. HEAD: Normocephalic and atraumatic. EENT: Examination benign. NECK: No neck rigidity was observed. NEUROLOGICAL EXAMINATION: MENTAL STATUS EXAMINATION: He was alert and awake. He was oriented to person, place, and time. He was able to recall 3/3 words immediately after 1 minute and after 3 minutes on the second trial. He was able to remember presidents Trump through Viral. His mathematical skills were fairly good. His visuospatial function was preserved. SPEECH: He had no dysarthria. LANGUAGE: He had no aphasia. CRANIAL NERVE EXAMINATION: II: The visual camargo were intact to confrontation testing. III, IV & : The external ocular movements were full and the pupils 3 mm in diameter, equal, round, regular and reactive to light. V: He had normal facial sensations in the temporales, masseters, and pterygoids functioned normally. VII: He had normal facial expression and no facial asymmetry. VIII: He able to hear well bilaterally and had no nystagmus. IX: The palate moved symmetrically on phonation. X: He had no hoarseness of voice. XI: The sternocleidomastoids and trapezii functioned normally. XII: The tongue was in the midline without any fasciculations or atrophy. MOTOR SYSTEM: The tone was normal in all four extremities. Examination of muscle mass revealed no focal wasting. Examination of power revealed G 5/5 power in both upper extremities. In the lower extremities he had: G 4/5 on the right side, and G 4/5 on the left side in the iliopsoas. G 5/5 on the right side, and G 5/5power on the left side in the quadriceps. G 5/5 power on the right side and grade 4+/5 power on the left side, in the hamstrings. G 4+/5 power on the right side, and G 3-/5 power on the left side in the ankle dorsiflexors, and toe extensors. G 5-/5 power on the right side and G 4-/5 power on the left side in the ankle plantar flexors and toe flexors. SENSORY EXAMINATION: He had altered sensations to pinprick and light touch S1 distribution bilaterally. In addition, he also had altered sensations in the saddle area. REFLEXES: Trace+ and bilaterally symmetrical at the biceps, triceps, and brachioradialis. 0 at both knees and ankles. The plantar responses were flexor bilaterally. STANCE: He stood up with support. GAIT: He walked with support with a paraplegic gait involving the left side more than the right side. However his gait was better than in the past. Impression/Recommendations Diagnostic Impression 1. Mr. Eliane Qiu is a 66-year-old, right-handed, gentleman, who does have a past history of hypertension, diabetes mellitus, dyslipidemia, osteoarthritis involving both knees, fractures of both his arms that were treated, lumbosacral spine surgery two years ago and cervical spine surgery one year ago, who approximately one month ago started to have some increased low back pain and then in the earlier part of last week developed problems moving his right leg, and on 03/22/2016 developed significant left leg weakness, increased low back pain and altered sensations in his left leg. He was hospitalized on 03/24/2016, started on steroids and was given morphine for pain and then developed inability to void urine. 2. On 03/28/16 he had a "discectomy at L3-4, hardware removal and revision of laminectomy/fusion from L1 through S1." 3. He feels better today. The legs are stronger but the altered sensations are still present. 4. On neurological examination, at this time, his paraparesis involving the left side more than the right side and the L5 muscles preferentially is better. He also has altered sensations to pinprick and light touch involving both lower extremity with preferential involvement of the [id number] roots, and in addition his sacral area. The deep tendon reflexes are significantly diminished in the upper extremities and lost in the lower extremities. 4. An MRI scan of the lumbosacral spine performed on 03/26/2016, reveals severe L3-4 spinal stenosis, moderate L2-3 spinal stenosis and milder L1-2 spinal stenosis. 5. The MRI of the C-spine performed on 03/26/16 reveals post-operative changes but no cord pathology. 6. The MRI of the T-spine performed on 03/26/16 reveals no cord pathology. 7. The MRI of the brain performed on 03/26/16 reveals atrophy but no acute intracranial pathology. 8. The patient's history and neurological examination, and MRI scan findings are most compatible with a severe lumbosacral polyradiculopathy involving the left side more than the right due to the severe L3-4 spinal stenosis and moderate L2-3 spinal stenosis. 9. His LS spine has now been surgically decompressed and stabilized. 10. His neurologic function is improving. Recommendations 1. Continue present management. 2. Continue to keep active with PT/OT. 3. Consider acute rehab in the near future.. Julio Murillo M.D., M.S.P.JULIO MARINELLI Mar 30, 2016 14:17
--- NOTE | 2016-03-30 14:44 | General Progress Note ---
Assessment/Plan Problem List: (1) Foot drop, left Assessment & Plan: - s/p Laminectomy Lumbar 1,2,3,4,5,S1. Left sided L34 microdiscectomy, Hardware removal and revision L4,5,S1 with posterolateral fusion - encourage mobilization/ambulation - encourage incentive spirometry to optimize pulmonary hygiene - DVT/GI prophylaxis as appropriate - ctm CBC and hemodynamics - ctm electrolytes, adjust/replete prn - PT/OT/ST, if indicated - pain control, supportive care, bowel regimen - DC planning ICD Codes: M21.372 - Foot drop, left foot SNOMED: 6765426, 19243685 (2) Lumbar herniated disc Assessment & Plan: As above ICD Codes: M51.26 - Other intervertebral disc displacement, lumbar region SNOMED: 567263344, 66156973 (3) Hyperlipidemia Assessment & Plan: Cont statin ICD Codes: E78.5 - Hyperlipidemia SNOMED: 00338731 (4) Hypertension Assessment & Plan: Cont BP meds ICD Codes: I10 - Hypertension SNOMED: 27061004 (5) Diabetes mellitus Assessment & Plan: Cont sliding scale Expect temporary hyperglycemia with steroid dose May need long acting insulin temporarily Diabetic diet ICD Codes: E11.9 - Type 2 diabetes mellitus without complications SNOMED: 17753966 (6) Urinary retention Assessment & Plan: Cont uribe catheter for now Cont flomax Consult urology ICD Codes: R33.9 - Retention of urine, unspecified SNOMED: 066811131 Subjective Date patient seen: Mar 30, 2016 Time patient seen: 14:43 ROS Limited/Unobtainable: No Allergies: Coded Allergies: No Known Allergies (Unverified , 07/24/12) Subjective s/p Laminectomy Lumbar 1,2,3,4,5,S1. Left sided L34 microdiscectomy, Hardware removal and revision L4,5,S1 with posterolateral fusion POD#2, no periop or postop complications. No chest pain or dyspnea, still with uribe cath, doing better today Objective Last 24 Hour Vital Signs Date Time Temp Pulse Resp B/P Pulse Ox O2 Delivery O2 Flow Rate FiO2 03/30/16 13:50 97.6 03/30/16 13:39 97.6 03/30/16 13:14 72 20 99 03/30/16 12:03 97.3 54 19 97/56 98 Room Air 03/30/16 10:04 97.7 03/30/16 09:05 116/66 03/30/16 09:04 62 116/66 03/30/16 09:04 62 116/66 03/30/16 08:00 97.7 62 23 116/66 96 Room Air 03/30/16 04:00 98.1 54 18 113/66 95 Room Air 03/30/16 00:00 98.1 55 16 107/66 95 Room Air 03/29/16 20:00 97.7 51 17 118/72 95 Room Air 03/29/16 16:00 98.6 50 18 117/68 94 Room Air Intake and Output 03/29/16 03/30/16 19:00 07:00 Intake Total 760 ml 340 ml Output Total 970 ml 870 ml Balance -210 ml -530 ml Intake Oral 760 ml 240 ml IV Total 100 ml Output Urine Total 900 ml 800 ml Drainage Total 70 ml 70 ml Height (Feet): 5 Height (Inches): 10.00 Weight (Pounds): 252 Objective General: alert, cooperative, no distress, appears stated age Head: normocephalic, without obvious abnormality, atraumatic Eyes: conjunctivae/corneas clear. PERRL, EOM's intact Throat: lips, mucosa, and tongue normal. MMM Neck: supple, symmetrical, trachea midline, and no JVD Lungs: clear to auscultation bilaterally Heart: regular rate and rhythm, S1, S2 normal, no murmur, click, rub or gallop Abdomen: soft, non-tender, non-distended, bowel sounds normal; no masses or organomegaly Extremities: extremities normal, atraumatic, no cyanosis or edema Pulses: 2+ and symmetric Skin: skin color, texture, turgor normal; no rashes or lesions PETE AMIN Mar 30, 2016 14:44
[2016-03-30 16:00] VITALS: BP 90/51
[2016-03-30 20:00] VITALS: BP 105/56
[2016-03-30] MEDS: Tamsulosin 0.4mg cap ORAL SCH (21:09)
[2016-03-31 00:20] VITALS: BP 117/68
[2016-03-31] MEDS: NS w/KCl 20mEq 1,000 ML IV SCH ×3 (01:53→21:20)
[2016-03-31 04:00] VITALS: BP 118/69
[2016-03-31] MEDS: Norco 7.5mg/325mg tab ORAL PRN (06:17)
[2016-03-31] MEDS: NovoLOG Insulin Flexpen SUBQ SCH ×4 (06:18→21:13)
[2016-03-31 08:00] VITALS: BP 107/57
[2016-03-31] MEDS: Aspirin EC 81mg tab ORAL SCH ×2 (08:33→08:45)
[2016-03-31] MEDS: metFORMIN 500mg tab ORAL SCH ×2 (08:35→18:15)
[2016-03-31] MEDS: Docusate 100mg cap ORAL SCH ×2 (08:35→18:15)
--- NOTE | 2016-03-31 09:17 | Urology Progress Note ---
Assessment/Plan Assessment/Plan 1. Urinary retention. 2. Benign prostatic hypertrophy. 3. Probable neurogenic bladder. failed voiding trial and uribe back indwelling flomax, increased to 0.8 mg minimize narcotics repeat voiding trial later Subjective Allergies: Coded Allergies: No Known Allergies (Unverified , 07/24/12) Subjective all noted, uribe indwelling Objective Last 24 Hour Vital Signs Date Time Temp Pulse Resp B/P Pulse Ox O2 Delivery O2 Flow Rate FiO2 03/31/16 08:38 107/57 03/31/16 08:36 70 107/57 03/31/16 08:35 70 107/57 03/31/16 08:00 99.0 70 18 107/57 99 Room Air 03/31/16 07:59 92 Room Air 03/31/16 07:59 Room Air 03/31/16 04:00 98.4 75 19 118/69 92 Room Air 03/31/16 00:20 98.6 60 21 117/68 94 Room Air 03/30/16 20:00 98.2 56 17 105/56 92 Room Air 03/30/16 16:00 90.0 61 17 90/51 94 Room Air 03/30/16 13:50 97.6 03/30/16 13:39 97.6 03/30/16 13:14 72 20 99 03/30/16 12:03 97.3 54 19 97/56 98 Room Air 03/30/16 10:04 97.7 Intake and Output 03/30/16 03/31/16 19:00 07:00 Intake Total 1320 ml 640 ml Output Total 1400 ml 1825 ml Balance -80 ml -1185 ml Intake Oral 520 ml 240 ml IV Total 800 ml 400 ml Output Urine Total 1400 ml 1825 ml Current Medications Medications (Trade) Dose Ordered Sig/Lalito Route PRN Reason Start Time Stop Time Status Last Admin Dose Admin Acetaminophen (Tylenol) 650 mg Q4H PRN ORAL headache or temp>101 03/28/16 16:15 04/27/16 16:14 03/30/16 12:51 Acetaminophen/ Hydrocodone Bitart ([place] 5/325) 1 tab Q3H PRN ORAL pain score 1-3 03/28/16 16:15 04/04/16 16:14 Acetaminophen/ Hydrocodone Bitart ([place] 7.5/325) 1 ea Q3H PRN ORAL pain score 4-6 2/15/17 16:15 04/04/16 16:14 03/29/16 07:55 Acetaminophen/ Hydrocodone Bitart ([place] 7.5/325) 2 ea Q3H PRN ORAL pain scale 7-10 03/28/16 16:15 04/04/16 16:14 03/31/16 06:17 Amlodipine Besylate (Norvasc) 5 mg DAILY ORAL 03/24/16 09:00 04/23/16 08:59 03/30/16 09:04 Aspirin (Ecotrin) 81 mg DAILY ORAL 03/24/16 09:00 04/23/16 08:59 03/30/16 09:04 Atenolol (Tenormin) 50 mg DAILY ORAL 03/24/16 09:00 04/23/16 08:59 03/30/16 09:04 Atorvastatin Calcium (Lipitor) 10 mg BEDTIME ORAL 03/24/16 21:00 04/23/16 20:59 03/30/16 21:09 Bisacodyl 10 mg 10 mg DAILYPRN PRN RECTAL Constipation Second Line 03/25/16 10:45 04/24/16 10:44 Carisoprodol (Soma) 350 mg TIDPRN PRN ORAL SPASM 03/28/16 16:15 04/27/16 16:14 Dextrose (Dextrose 50%) STAT PRN IV Hypoglycemia 03/23/16 23:00 04/22/16 22:59 Docusate Sodium (Colace) 100 mg TWICE A DAY ORAL 03/29/16 09:00 04/28/16 08:59 03/31/16 08:35 Gabapentin (Neurontin) 400 mg THREE TIMES A DAY ORAL 03/24/16 09:00 04/23/16 08:59 03/31/16 08:34 Hydromorphone HCl (Dilaudid) 1 mg Q2H PRN IVP Breakthrough Pain 03/28/16 16:15 04/04/16 16:14 Hydromorphone HCl (Dilaudid) 1 mg Q4H PRN SUBQ Mild Pain (Pain Scale 1-3) 03/28/16 16:15 04/04/16 16:14 Hydromorphone HCl (Dilaudid) 2 mg Q3H PRN SUBQ Severe Pain (Pain Scale 7-10) 03/28/16 16:15 04/04/16 16:14 03/29/16 01:04 Hydromorphone HCl (Dilaudid) 2 mg Q4H PRN SUBQ Moderate Pain (Pain Scale 4-6) 03/28/16 16:15 04/04/16 16:14 Insulin Aspart (NovoLOG) BEFORE MEALS AND HS SUBQ 03/24/16 06:30 04/23/16 06:29 03/31/16 06:18 Irbesartan (Avapro) 75 mg DAILY ORAL 03/24/16 09:00 04/23/16 08:59 03/30/16 09:05 Magnesium Hydroxide (Mom) 30 ml QIDPRN PRN ORAL Constipation 03/28/16 16:15 04/27/16 16:14 Metformin HCl (Glucophage) 750 mg BID ORAL 03/24/16 09:00 04/23/16 08:59 03/31/16 08:35 Metoclopramide HCl (Reglan) 10 mg Q6H PRN IVP Nausea & Vomiting 03/28/16 16:15 04/27/16 16:14 Naloxone HCl (Narcan) 0.1 mg PRN PRN IVP RR<12/min, pt unarousable 03/28/16 16:15 04/27/16 16:14 Ondansetron HCl (Zofran) 4 mg Q6H PRN IVP Nausea & Vomiting 03/28/16 16:15 04/27/16 16:14 Pioglitazone HCl (Actos) 30 mg DAILY PO 03/24/16 09:00 04/23/16 08:59 03/31/16 08:37 Polyethylene Glycol (Miralax) 17 gm DAILY PRN ORAL Constipation First line 03/25/16 10:45 04/24/16 10:44 Sodium Chloride (NS w/KCl 20mEq) 1,000 ml @ 100 mls/hr Q10H IV 03/29/16 00:00 04/28/16 00:00 03/31/16 01:53 Tamsulosin HCl (Flomax) 0.8 mg BEDTIME ORAL 03/30/16 21:00 04/29/16 20:59 03/30/16 21:09 Temazepam (Restoril) 15 mg HSPRN PRN ORAL Insomnia 2/15/17 16:15 04/04/16 16:14 Height (Feet): 5 Height (Inches): 10.00 Weight (Pounds): 252 Objective exam, urine clear DAVID PAYAN Mar 31, 2016 09:17
[2016-03-31 12:00] VITALS: BP 91/57
[2016-03-31] MEDS: Norco 5mg/325mg tab ORAL PRN ×2 (13:38→21:16)
[2016-03-31] MEDS ORDERED: ceFAZolin 2gm/50ml Premix 50 ML IVPB SCH (14:00)
[2016-03-31] MEDS ORDERED: ceFAZolin 2gm/50 ML IV SCH (14:00)
--- NOTE | 2016-03-31 14:07 | General Progress Note ---
Assessment/Plan Problem List: (1) Foot drop, left Assessment & Plan: - s/p Laminectomy Lumbar 1,2,3,4,5,S1. Left sided L34 microdiscectomy, Hardware removal and revision L4,5,S1 with posterolateral fusion - encourage mobilization/ambulation - encourage incentive spirometry to optimize pulmonary hygiene - DVT/GI prophylaxis as appropriate - ctm CBC and hemodynamics - ctm electrolytes, adjust/replete prn - PT/OT/ST, if indicated - pain control, supportive care, bowel regimen - DC planning to [facility] ICD Codes: M21.372 - Foot drop, left foot SNOMED: 4021883, 47081590 (2) Lumbar herniated disc Assessment & Plan: As above ICD Codes: M51.26 - Other intervertebral disc displacement, lumbar region SNOMED: 833632495, 73363044 (3) Hyperlipidemia Assessment & Plan: Cont statin ICD Codes: E78.5 - Hyperlipidemia SNOMED: 75223618 (4) Hypertension Assessment & Plan: Cont BP meds ICD Codes: I10 - Hypertension SNOMED: 99473555 (5) Diabetes mellitus Assessment & Plan: Cont sliding scale Expect temporary hyperglycemia with steroid dose May need long acting insulin temporarily Diabetic diet ICD Codes: E11.9 - Type 2 diabetes mellitus without complications SNOMED: 52341312 (6) Urinary retention Assessment & Plan: Cont uribe catheter for now Cont flomax Consult urology ICD Codes: R33.9 - Retention of urine, unspecified SNOMED: 095522591 Subjective Date patient seen: Mar 31, 2016 Time patient seen: 14:06 ROS Limited/Unobtainable: No Allergies: Coded Allergies: No Known Allergies (Unverified , 07/24/12) Subjective s/p Laminectomy Lumbar 1,2,3,4,5,S1. Left sided L34 microdiscectomy, Hardware removal and revision L4,5,S1 with posterolateral fusion POD#3, no periop or postop complications. No chest pain or dyspnea, still with uribe cath, doing better today Objective Last 24 Hour Vital Signs Date Time Temp Pulse Resp B/P Pulse Ox O2 Delivery O2 Flow Rate FiO2 03/31/16 12:00 97.5 73 17 91/57 95 03/31/16 08:38 107/57 03/31/16 08:36 70 107/57 03/31/16 08:35 70 107/57 03/31/16 08:00 99.0 70 18 107/57 99 Room Air 03/31/16 07:59 92 Room Air 03/31/16 07:59 Room Air 03/31/16 04:00 98.4 75 19 118/69 92 Room Air 03/31/16 00:20 98.6 60 21 117/68 94 Room Air 03/30/16 20:00 98.2 56 17 105/56 92 Room Air 03/30/16 16:00 90.0 61 17 90/51 94 Room Air Intake and Output 03/30/16 03/31/16 19:00 07:00 Intake Total 1320 ml 740 ml Output Total 1400 ml 1825 ml Balance -80 ml -1085 ml Intake Oral 520 ml 240 ml IV Total 800 ml 500 ml Output Urine Total 1400 ml 1825 ml Height (Feet): 5 Height (Inches): 10.00 Weight (Pounds): 252 Objective General: alert, cooperative, no distress, appears stated age Head: normocephalic, without obvious abnormality, atraumatic Eyes: conjunctivae/corneas clear. PERRL, EOM's intact Throat: lips, mucosa, and tongue normal. MMM Neck: supple, symmetrical, trachea midline, and no JVD Lungs: clear to auscultation bilaterally Heart: regular rate and rhythm, S1, S2 normal, no murmur, click, rub or gallop Abdomen: soft, non-tender, non-distended, bowel sounds normal; no masses or organomegaly Extremities: extremities normal, atraumatic, no cyanosis or edema Pulses: 2+ and symmetric Skin: skin color, texture, turgor normal; no rashes or lesions PETE AMIN Mar 31, 2016 14:07
[2016-03-31] MEDS: D5W IVPB SCH ×2 (14:15→21:11)
[2016-03-31] MEDS: CEFAZOLIN SOD IVPB SCH ×2 (14:15→21:11)
--- NOTE | 2016-03-31 14:44 | Neurology Progress Note ---
Interim History Interim History Interim History Mr. Qiu feels better. He walked well with his physical therapist earlier today. He is steadier on his feet. The back pain is better. He feels that the legs are a little stronger. The altered sensations are now in the back of both legs. The altered sensations in his saddle area are the same. He still has a Cabral catheter in. He denies any new neurologic symptoms. Review of Systems Neuro Review of Systems Benign. Objective Physical Exam Last Vital Signs Date Time Temp Pulse Resp B/P Pulse Ox O2 Delivery O2 Flow Rate FiO2 03/31/16 12:00 97.5 73 17 91/57 95 03/31/16 08:00 Room Air 03/29/16 12:08 2.0 03/29/16 01:30 28 Neurologic Exam Objective PHYSICAL EXAMINATION: GENERAL: He is a well-developed, well-nourished, slightly obese, gentleman, lying in bed, no acute distress. HEAD: Normocephalic and atraumatic. EENT: Examination benign. NECK: No neck rigidity was observed. NEUROLOGICAL EXAMINATION: MENTAL STATUS EXAMINATION: He was alert and awake. He was oriented to person, place, and time. He was able to recall 3/3 words immediately after 1 minute and after 3 minutes on the second trial. He was able to remember presidents Trump through Viral. His mathematical skills were fairly good. His visuospatial function was preserved. SPEECH: He had no dysarthria. LANGUAGE: He had no aphasia. CRANIAL NERVE EXAMINATION: II: The visual camargo were intact to confrontation testing. III, IV & : The external ocular movements were full and the pupils 3 mm in diameter, equal, round, regular and reactive to light. V: He had normal facial sensations in the temporales, masseters, and pterygoids functioned normally. VII: He had normal facial expression and no facial asymmetry. VIII: He able to hear well bilaterally and had no nystagmus. IX: The palate moved symmetrically on phonation. X: He had no hoarseness of voice. XI: The sternocleidomastoids and trapezii functioned normally. XII: The tongue was in the midline without any fasciculations or atrophy. MOTOR SYSTEM: The tone was normal in all four extremities. Examination of muscle mass revealed no focal wasting. Examination of power revealed G 5/5 power in both upper extremities. In the lower extremities he had: G 4/5 on the right side, and G 4-/5 on the left side in the iliopsoas. G 5/5 on the right side, and G 5/5power on the left side in the quadriceps. G 5/5 power on the right side and grade 4+/5 power on the left side, in the hamstrings. G 4+/5 power on the right side, and G 3-/5 power on the left side in the ankle dorsiflexors, and toe extensors. G 5-/5 power on the right side and G 4-/5 power on the left side in the ankle plantar flexors and toe flexors. SENSORY EXAMINATION: He had altered sensations to pinprick and light touch S1 distribution bilaterally. In addition, he also had altered sensations in the saddle area. REFLEXES: Trace+ and bilaterally symmetrical at the biceps, triceps, and brachioradialis. 0 at both knees and ankles. The plantar responses were flexor bilaterally. STANCE: He stood up with support. GAIT: He walked with support with a paraplegic gait involving the left side more than the right side. However his gait was better than in the past. Impression/Recommendations Diagnostic Impression 1. Mr. Eliane Qiu is a 66-year-old, right-handed, gentleman, who does have a past history of hypertension, diabetes mellitus, dyslipidemia, osteoarthritis involving both knees, fractures of both his arms that were treated, lumbosacral spine surgery two years ago and cervical spine surgery one year ago, who approximately one month ago started to have some increased low back pain and then in the earlier part of last week developed problems moving his right leg, and on 03/22/2016 developed significant left leg weakness, increased low back pain and altered sensations in his left leg. He was hospitalized on 03/24/2016, started on steroids and was given morphine for pain and then developed inability to void urine. 2. On 03/28/16 he had a "discectomy at L3-4, hardware removal and revision of laminectomy/fusion from L1 through S1." 3. He continues to feel better. The legs are stronger but the altered sensations are still present. 4. On neurological examination, at this time, his paraparesis involving the left side more than the right side and the L5 muscles preferentially is better. He also has altered sensations to pinprick and light touch involving both lower extremity with preferential involvement of the S1 nerve roots, and in addition his sacral area. The deep tendon reflexes are significantly diminished in the upper extremities and lost in the lower extremities. 4. An MRI scan of the lumbosacral spine performed on 03/26/2016, reveals severe L3-4 spinal stenosis, moderate L2-3 spinal stenosis and milder L1-2 spinal stenosis. 5. The MRI of the C-spine performed on 03/26/16 reveals post-operative changes but no cord pathology. 6. The MRI of the T-spine performed on 03/26/16 reveals no cord pathology. 7. The MRI of the brain performed on 03/26/16 reveals atrophy but no acute intracranial pathology. 8. The patient's history and neurological examination, and MRI scan findings are most compatible with a severe lumbosacral polyradiculopathy involving the left side more than the right due to the severe L3-4 spinal stenosis and moderate L2-3 spinal stenosis. 9. His LS spine has now been surgically decompressed and stabilized. 10. His neurologic function is improving. Recommendations 1. Continue present management. 2. Continue to keep active with PT/OT. 3. Consider acute rehab in the near future.. Julio Murillo M.D., M.S.P.JULIO MARINELLI Mar 31, 2016 14:44
[2016-03-31 16:00] VITALS: BP 111/64
[2016-03-31 20:00] VITALS: BP 127/69
[2016-03-31] MEDS: Tamsulosin 0.4mg cap ORAL SCH (21:10)
[2016-04-01] MEDS: Miralax 17gm pkt ORAL PRN (00:02)
[2016-04-01 00:42] VITALS: BP 121/79
[2016-04-01 04:00] VITALS: BP 134/86
[2016-04-01] MEDS: NovoLOG Insulin Flexpen SUBQ SCH ×4 (05:39→22:05)
[2016-04-01 08:00] VITALS: BP 126/76
[2016-04-01] MEDS: NS w/KCl 20mEq 1,000 ML IV SCH ×2 (08:00→17:43)
[2016-04-01] MEDS: Docusate 100mg cap ORAL SCH ×2 (08:31→17:36)
[2016-04-01] MEDS: metFORMIN 500mg tab ORAL SCH ×2 (08:31→17:35)
[2016-04-01] MEDS: Aspirin EC 81mg tab ORAL SCH (08:33)
--- NOTE | 2016-04-01 08:56 | Urology Progress Note ---
Assessment/Plan Assessment/Plan 1. Urinary retention. 2. Benign prostatic hypertrophy. 3. Probable neurogenic bladder. failed voiding trial and uribe back indwelling flomax, increased to 0.8 mg minimize narcotics repeat voiding trial AM 04/02 Subjective Allergies: Coded Allergies: No Known Allergies (Unverified , 07/24/12) Subjective all noted, uribe indwelling Objective Last 24 Hour Vital Signs Date Time Temp Pulse Resp B/P Pulse Ox O2 Delivery O2 Flow Rate FiO2 04/01/16 08:33 126/78 04/01/16 08:33 97 126/78 04/01/16 08:32 97 126/78 04/01/16 04:00 97.9 90 18 134/86 95 Room Air 04/01/16 00:42 98.2 97 20 121/79 95 Room Air 03/31/16 20:08 Room Air 03/31/16 20:08 94 Room Air 03/31/16 20:00 98.8 87 19 127/69 94 Room Air 03/31/16 16:00 98.1 72 18 111/64 94 Room Air 03/31/16 12:00 97.5 73 17 91/57 95 Intake and Output 03/31/16 04/01/16 19:00 07:00 Intake Total 980 ml 1180 ml Output Total 1000 ml 5125 ml Balance -20 ml -3945 ml Intake Oral 480 ml 480 ml IV Total 500 ml 700 ml Output Urine Total 1000 ml 5125 ml Current Medications Medications (Trade) Dose Ordered Sig/Lalito Route PRN Reason Start Time Stop Time Status Last Admin Dose Admin Acetaminophen (Tylenol) 650 mg Q4H PRN ORAL headache or temp>101 03/28/16 16:15 04/27/16 16:14 03/30/16 12:51 Acetaminophen/ Hydrocodone Bitart ([place] 5/325) 1 tab Q3H PRN ORAL pain score 1-3 03/28/16 16:15 04/04/16 16:14 03/31/16 21:16 Acetaminophen/ Hydrocodone Bitart ([place] 7.5/325) 1 ea Q3H PRN ORAL pain score 4-6 03/28/16 16:15 04/04/16 16:14 03/29/16 07:55 Acetaminophen/ Hydrocodone Bitart ([place] 7.5/325) 2 ea Q3H PRN ORAL pain scale 7-10 03/28/16 16:15 04/04/16 16:14 03/31/16 06:17 Amlodipine Besylate (Norvasc) 5 mg DAILY ORAL 03/24/16 09:00 04/23/16 08:59 04/01/16 08:32 Aspirin (Ecotrin) 81 mg DAILY ORAL 03/24/16 09:00 04/23/16 08:59 03/30/16 09:04 Atenolol (Tenormin) 50 mg DAILY ORAL 03/24/16 09:00 04/23/16 08:59 04/01/16 08:33 Atorvastatin Calcium (Lipitor) 10 mg BEDTIME ORAL 03/24/16 21:00 04/23/16 20:59 03/31/16 21:11 Bisacodyl 10 mg 10 mg DAILYPRN PRN RECTAL Constipation Second Line 03/25/16 10:45 04/24/16 10:44 Carisoprodol (Soma) 350 mg TIDPRN PRN ORAL SPASM 03/28/16 16:15 04/27/16 16:14 Dextrose (Dextrose 50%) STAT PRN IV Hypoglycemia 03/23/16 23:00 04/22/16 22:59 Docusate Sodium (Colace) 100 mg TWICE A DAY ORAL 03/29/16 09:00 04/28/16 08:59 04/01/16 08:31 Gabapentin (Neurontin) 400 mg THREE TIMES A DAY ORAL 03/24/16 09:00 04/23/16 08:59 04/01/16 08:31 Hydromorphone HCl (Dilaudid) 1 mg Q2H PRN IVP Breakthrough Pain 03/28/16 16:15 04/04/16 16:14 Hydromorphone HCl (Dilaudid) 1 mg Q4H PRN SUBQ Mild Pain (Pain Scale 1-3) 03/28/16 16:15 04/04/16 16:14 Hydromorphone HCl (Dilaudid) 2 mg Q3H PRN SUBQ Severe Pain (Pain Scale 7-10) 03/28/16 16:15 04/04/16 16:14 03/29/16 01:04 Hydromorphone HCl (Dilaudid) 2 mg Q4H PRN SUBQ Moderate Pain (Pain Scale 4-6) 03/28/16 16:15 04/04/16 16:14 Insulin Aspart (NovoLOG) BEFORE MEALS AND HS SUBQ 03/24/16 06:30 04/23/16 06:29 04/01/16 05:39 Irbesartan (Avapro) 75 mg DAILY ORAL 03/24/16 09:00 04/23/16 08:59 04/01/16 08:33 Magnesium Hydroxide (Mom) 30 ml QIDPRN PRN ORAL Constipation 03/28/16 16:15 04/27/16 16:14 Metformin HCl (Glucophage) 750 mg BID ORAL 03/24/16 09:00 04/23/16 08:59 04/01/16 08:31 Metoclopramide HCl (Reglan) 10 mg Q6H PRN IVP Nausea & Vomiting 03/28/16 16:15 04/27/16 16:14 Naloxone HCl (Narcan) 0.1 mg PRN PRN IVP RR<12/min, pt unarousable 03/28/16 16:15 04/27/16 16:14 Ondansetron HCl (Zofran) 4 mg Q6H PRN IVP Nausea & Vomiting 03/28/16 16:15 04/27/16 16:14 Pioglitazone HCl (Actos) 30 mg DAILY PO 03/24/16 09:00 04/23/16 08:59 04/01/16 08:32 Polyethylene Glycol (Miralax) 17 gm DAILY PRN ORAL Constipation First line 03/25/16 10:45 04/24/16 10:44 04/01/16 00:02 Sodium Chloride (NS w/KCl 20mEq) 1,000 ml @ 100 mls/hr Q10H IV 03/29/16 00:00 04/28/16 00:00 03/31/16 21:20 Tamsulosin HCl (Flomax) 0.8 mg BEDTIME ORAL 03/30/16 21:00 04/29/16 20:59 03/31/16 21:10 Temazepam (Restoril) 15 mg HSPRN PRN ORAL Insomnia 03/28/16 16:15 04/04/16 16:14 Height (Feet): 5 Height (Inches): 10.00 Weight (Pounds): 252 Objective exam, urine clear DAVID PAYAN Apr 01, 2016 08:56
[2016-04-01 12:00] VITALS: BP 91/51
--- NOTE | 2016-04-01 13:20 | General Progress Note ---
Assessment/Plan Problem List: (1) Foot drop, left Assessment & Plan: - s/p Laminectomy Lumbar 1,2,3,4,5,S1. Left sided L34 microdiscectomy, Hardware removal and revision L4,5,S1 with posterolateral fusion - encourage mobilization/ambulation - encourage incentive spirometry to optimize pulmonary hygiene - DVT/GI prophylaxis as appropriate - ctm CBC and hemodynamics - ctm electrolytes, adjust/replete prn - PT/OT/ST, if indicated - pain control, supportive care, bowel regimen - DC planning to [facility] ICD Codes: M21.372 - Foot drop, left foot SNOMED: 2050652, 95484976 (2) Lumbar herniated disc Assessment & Plan: As above ICD Codes: M51.26 - Other intervertebral disc displacement, lumbar region SNOMED: 132275963, 81828924 (3) Hyperlipidemia Assessment & Plan: Cont statin ICD Codes: E78.5 - Hyperlipidemia SNOMED: 27343221 (4) Hypertension Assessment & Plan: Cont BP meds ICD Codes: I10 - Hypertension SNOMED: 13668514 (5) Diabetes mellitus Assessment & Plan: Cont sliding scale Expect temporary hyperglycemia with steroid dose May need long acting insulin temporarily Diabetic diet ICD Codes: E11.9 - Type 2 diabetes mellitus without complications SNOMED: 52171208 (6) Urinary retention Assessment & Plan: Cont uribe catheter for now Cont flomax Consult urology ICD Codes: R33.9 - Retention of urine, unspecified SNOMED: 966804319 Subjective Date patient seen: Apr 01, 2016 ROS Limited/Unobtainable: No Allergies: Coded Allergies: No Known Allergies (Unverified , 07/24/12) Subjective s/p Laminectomy Lumbar 1,2,3,4,5,S1. Left sided L34 microdiscectomy, Hardware removal and revision L4,5,S1 with posterolateral fusion POD#4, no periop or postop complications. No chest pain or dyspnea, still with uribe cath, doing better today, c/o persistent constipation Objective Last 24 Hour Vital Signs Date Time Temp Pulse Resp B/P Pulse Ox O2 Delivery O2 Flow Rate FiO2 04/01/16 12:00 98.1 69 14 91/51 95 Room Air 04/01/16 08:33 126/78 04/01/16 08:33 97 126/78 04/01/16 08:32 97 126/78 04/01/16 08:00 98.8 97 16 126/76 98 Room Air 04/01/16 04:00 97.9 90 18 134/86 95 Room Air 04/01/16 00:42 98.2 97 20 121/79 95 Room Air 03/31/16 20:08 Room Air 03/31/16 20:08 94 Room Air 03/31/16 20:00 98.8 87 19 127/69 94 Room Air 03/31/16 16:00 98.1 72 18 111/64 94 Room Air Intake and Output 03/31/16 04/01/16 19:00 07:00 Intake Total 980 ml 1180 ml Output Total 1000 ml 5125 ml Balance -20 ml -3945 ml Intake Oral 480 ml 480 ml IV Total 500 ml 700 ml Output Urine Total 1000 ml 5125 ml Height (Feet): 5 Height (Inches): 10.00 Weight (Pounds): 252 Objective General: alert, cooperative, no distress, appears stated age Head: normocephalic, without obvious abnormality, atraumatic Eyes: conjunctivae/corneas clear. PERRL, EOM's intact Throat: lips, mucosa, and tongue normal. MMM Neck: supple, symmetrical, trachea midline, and no JVD Lungs: clear to auscultation bilaterally Heart: regular rate and rhythm, S1, S2 normal, no murmur, click, rub or gallop Abdomen: soft, non-tender, non-distended, bowel sounds normal; no masses or organomegaly Extremities: extremities normal, atraumatic, no cyanosis or edema Pulses: 2+ and symmetric Skin: skin color, texture, turgor normal; no rashes or lesions PETE AMIN Apr 01, 2016 13:20
[2016-04-01] MEDS ORDERED: Magnesium Citrate Liq Btl ORAL ONE (14:30)
--- NOTE | 2016-04-01 14:56 | Neurology Progress Note ---
Interim History Interim History Interim History Mr. Qiu feels better. He walked much more with his physical therapist today. He feels steadier on his feet when he stands and walks. The back pain is better. He feels that the legs are a little stronger. The altered sensations are improving and much better on the right and a little better on the left. The altered sensations in his saddle area are the same. He still has a Cabral catheter in. He denies any new neurologic symptoms. Review of Systems Neuro Review of Systems Benign. Objective Physical Exam Last Vital Signs Date Time Temp Pulse Resp B/P Pulse Ox O2 Delivery O2 Flow Rate FiO2 04/01/16 12:00 98.1 69 14 91/51 95 Room Air 03/29/16 12:08 2.0 03/29/16 01:30 28 Neurologic Exam Objective PHYSICAL EXAMINATION: GENERAL: He is a well-developed, well-nourished, slightly obese, gentleman, lying in bed, no acute distress. HEAD: Normocephalic and atraumatic. EENT: Examination benign. NECK: No neck rigidity was observed. NEUROLOGICAL EXAMINATION: MENTAL STATUS EXAMINATION: He was alert and awake. He was oriented to person, place, and time. He was able to recall 3/3 words immediately after 1 minute and after 3 minutes. He was able to remember presidents Trump through Viral. His mathematical skills were fairly good. His visuospatial function was preserved. SPEECH: He had no dysarthria. LANGUAGE: He had no aphasia. CRANIAL NERVE EXAMINATION: II: The visual camargo were intact to confrontation testing. III, IV & : The external ocular movements were full and the pupils 3 mm in diameter, equal, round, regular and reactive to light. V: He had normal facial sensations in the temporales, masseters, and pterygoids functioned normally. VII: He had normal facial expression and no facial asymmetry. VIII: He able to hear well bilaterally and had no nystagmus. IX: The palate moved symmetrically on phonation. X: He had no hoarseness of voice. XI: The sternocleidomastoids and trapezii functioned normally. XII: The tongue was in the midline without any fasciculations or atrophy. MOTOR SYSTEM: The tone was normal in all four extremities. Examination of muscle mass revealed no focal wasting. Examination of power revealed G 5/5 power in both upper extremities. In the lower extremities he had: G 4/5 on the right side, and G 4-/5 on the left side in the iliopsoas. G 5/5 on the right side, and G 5/5power on the left side in the quadriceps. G 5/5 power on the right side and grade 5-/5 power on the left side, in the hamstrings. G 4+/5 power on the right side, and G 3-/5 power on the left side in the ankle dorsiflexors, and toe extensors. G 5-/5 power on the right side and G 4-/5 power on the left side in the ankle plantar flexors and toe flexors. SENSORY EXAMINATION: He had altered sensations to pinprick and light touch in a patchy manner more in the left than right lower extremity. In addition, he also had altered sensations in the saddle area. REFLEXES: Trace+ and bilaterally symmetrical at the biceps, triceps, and brachioradialis. 0 at both knees and ankles. The plantar responses were flexor bilaterally. STANCE: He stood up with support. GAIT: He walked with support with a paraplegic gait involving the left side more than the right side. However his gait was better than in the past. Impression/Recommendations Diagnostic Impression 1. Mr. Eliane Qiu is a 66-year-old, right-handed, gentleman, who does have a past history of hypertension, diabetes mellitus, dyslipidemia, osteoarthritis involving both knees, fractures of both his arms that were treated, lumbosacral spine surgery two years ago and cervical spine surgery one year ago, who approximately one month ago started to have some increased low back pain and then in the earlier part of last week developed problems moving his right leg, and on 03/22/2016 developed significant left leg weakness, increased low back pain and altered sensations in his left leg. He was hospitalized on 03/24/2016, started on steroids and was given morphine for pain and then developed inability to void urine. 2. On 03/28/16 he had a "discectomy at L3-4, hardware removal and revision of laminectomy/fusion from L1 through S1." 3. He continues to feel better. The legs are stronger but the altered sensations are improving. The walking is also improving. 4. On neurological examination, at this time, his paraparesis involving the left side more than the right side is better. He also has altered sensations to pinprick and light touch involving both lower extremities and in addition his saddle area. The deep tendon reflexes are significantly diminished in the upper extremities and lost in the lower extremities. 4. An MRI scan of the lumbosacral spine performed on 03/26/2016, reveals severe L3-4 spinal stenosis, moderate L2-3 spinal stenosis and milder L1-2 spinal stenosis. 5. The MRI of the C-spine performed on 03/26/16 reveals post-operative changes but no cord pathology. 6. The MRI of the T-spine performed on 03/26/16 reveals no cord pathology. 7. The MRI of the brain performed on 03/26/16 reveals atrophy but no acute intracranial pathology. 8. The patient's history and neurological examination, and MRI scan findings are most compatible with a severe lumbosacral polyradiculopathy involving the left side more than the right due to the severe L3-4 spinal stenosis and moderate L2-3 spinal stenosis. 9. His LS spine has now been surgically decompressed and stabilized. 10. His neurologic function continues to improve. Recommendations 1. Continue present management. 2. Continue to keep active with PT/OT. 3. Acute rehab in the near future. Julio Chin M.D., M.S.[facility]. JULIO CHIN Apr 01, 2016 14:56
[2016-04-01 16:18] VITALS: BP 106/67
[2016-04-01 20:48] VITALS: BP 123/69
[2016-04-01] MEDS: Tamsulosin 0.4mg cap ORAL SCH (22:04)
[2016-04-01] MEDS: Norco 7.5mg/325mg tab ORAL PRN (22:36)
[2016-04-02] VITALS: BP 120/75
[2016-04-02] MEDS: NS w/KCl 20mEq 1,000 ML IV SCH ×2 (02:51→14:00)
[2016-04-02 04:00] VITALS: BP 109/69
[2016-04-02] MEDS: NovoLOG Insulin Flexpen SUBQ SCH ×4 (05:33→20:18)
[2016-04-02] MEDS: Norco 7.5mg/325mg tab ORAL PRN ×2 (05:42→20:11)
[2016-04-02 08:00] VITALS: BP 96/69
[2016-04-02] MEDS: Aspirin EC 81mg tab ORAL SCH (09:00)
--- NOTE | 2016-04-02 09:10 | Urology Progress Note ---
Assessment/Plan Assessment/Plan 1. Urinary retention. 2. Benign prostatic hypertrophy. 3. Probable neurogenic bladder. repeat voiding trial today flomax 0.8 mg minimize narcotics check PVR and reinsert uribe PRN Subjective Allergies: Coded Allergies: No Known Allergies (Unverified , 07/24/12) Subjective all noted, uribe removed early am Objective Last 24 Hour Vital Signs Date Time Temp Pulse Resp B/P Pulse Ox O2 Delivery O2 Flow Rate FiO2 04/02/16 04:00 98.2 87 18 109/69 97 Room Air 04/02/16 00:00 97.9 83 18 120/75 95 Room Air 04/01/16 20:48 97.2 92 19 123/69 95 Room Air 04/01/16 16:18 98.1 86 18 106/67 95 Room Air 04/01/16 12:00 98.1 69 14 91/51 95 Room Air Intake and Output 04/01/16 04/02/16 19:00 07:00 Intake Total 1240 ml 480 ml Output Total 800 ml 1300 ml Balance 440 ml -820 ml Intake Oral 1240 ml 480 ml Output Urine Total 800 ml 1300 ml # Bowel Movements 2 Current Medications Medications (Trade) Dose Ordered Sig/Lalito Route PRN Reason Start Time Stop Time Status Last Admin Dose Admin Acetaminophen (Tylenol) 650 mg Q4H PRN ORAL headache or temp>101 03/28/16 16:15 04/27/16 16:14 03/30/16 12:51 Acetaminophen/ Hydrocodone Bitart ([place] 5/325) 1 tab Q3H PRN ORAL pain score 1-3 03/28/16 16:15 04/04/16 16:14 03/31/16 21:16 Acetaminophen/ Hydrocodone Bitart ([place] 7.5/325) 1 ea Q3H PRN ORAL pain score 4-6 03/28/16 16:15 04/04/16 16:14 04/02/16 05:42 Acetaminophen/ Hydrocodone Bitart ([place] 7.5/325) 2 ea Q3H PRN ORAL pain scale 7-10 03/28/16 16:15 04/04/16 16:14 03/31/16 06:17 Amlodipine Besylate (Norvasc) 5 mg DAILY ORAL 03/24/16 09:00 04/23/16 08:59 04/01/16 08:32 Aspirin (Ecotrin) 81 mg DAILY ORAL 03/24/16 09:00 04/23/16 08:59 03/30/16 09:04 Atenolol (Tenormin) 50 mg DAILY ORAL 03/24/16 09:00 04/23/16 08:59 04/01/16 08:33 Atorvastatin Calcium (Lipitor) 10 mg BEDTIME ORAL 03/24/16 21:00 04/23/16 20:59 04/01/16 22:05 Bisacodyl 10 mg 10 mg DAILYPRN PRN RECTAL Constipation Second Line 03/25/16 10:45 04/24/16 10:44 Carisoprodol (Soma) 350 mg TIDPRN PRN ORAL SPASM 03/28/16 16:15 04/27/16 16:14 Dextrose (Dextrose 50%) STAT PRN IV Hypoglycemia 03/23/16 23:00 04/22/16 22:59 Docusate Sodium (Colace) 100 mg TWICE A DAY ORAL 03/29/16 09:00 04/28/16 08:59 04/01/16 17:36 Gabapentin (Neurontin) 400 mg THREE TIMES A DAY ORAL 03/24/16 09:00 04/23/16 08:59 04/01/16 17:37 Hydromorphone HCl (Dilaudid) 1 mg Q2H PRN IVP Breakthrough Pain 03/28/16 16:15 04/04/16 16:14 Hydromorphone HCl (Dilaudid) 1 mg Q4H PRN SUBQ Mild Pain (Pain Scale 1-3) 03/28/16 16:15 04/04/16 16:14 Hydromorphone HCl (Dilaudid) 2 mg Q3H PRN SUBQ Severe Pain (Pain Scale 7-10) 03/28/16 16:15 04/04/16 16:14 03/29/16 01:04 Hydromorphone HCl (Dilaudid) 2 mg Q4H PRN SUBQ Moderate Pain (Pain Scale 4-6) 03/28/16 16:15 04/04/16 16:14 Insulin Aspart (NovoLOG) BEFORE MEALS AND HS SUBQ 03/24/16 06:30 04/23/16 06:29 04/02/16 05:33 Irbesartan (Avapro) 75 mg DAILY ORAL 03/24/16 09:00 04/23/16 08:59 04/01/16 08:33 Magnesium Hydroxide (Mom) 30 ml QIDPRN PRN ORAL Constipation 03/28/16 16:15 04/27/16 16:14 04/01/16 12:24 Metformin HCl (Glucophage) 750 mg BID ORAL 03/24/16 09:00 04/23/16 08:59 04/01/16 17:35 Metoclopramide HCl (Reglan) 10 mg Q6H PRN IVP Nausea & Vomiting 03/28/16 16:15 04/27/16 16:14 Naloxone HCl (Narcan) 0.1 mg PRN PRN IVP RR<12/min, pt unarousable 03/28/16 16:15 04/27/16 16:14 Ondansetron HCl (Zofran) 4 mg Q6H PRN IVP Nausea & Vomiting 03/28/16 16:15 04/27/16 16:14 Pioglitazone HCl (Actos) 30 mg DAILY PO 03/24/16 09:00 04/23/16 08:59 04/01/16 08:32 Polyethylene Glycol (Miralax) 17 gm DAILY PRN ORAL Constipation First line 03/25/16 10:45 04/24/16 10:44 04/01/16 00:02 Sodium Chloride (NS w/KCl 20mEq) 1,000 ml @ 100 mls/hr Q10H IV 03/29/16 00:00 04/28/16 00:00 03/31/16 21:20 Tamsulosin HCl (Flomax) 0.8 mg BEDTIME ORAL 03/30/16 21:00 04/29/16 20:59 04/01/16 22:04 Temazepam (Restoril) 15 mg HSPRN PRN ORAL Insomnia 03/28/16 16:15 04/04/16 16:14 Height (Feet): 5 Height (Inches): 10.00 Weight (Pounds): 252 Objective exam stable DAVID PAYAN Apr 02, 2016 09:10
[2016-04-02] MEDS: Docusate 100mg cap ORAL SCH ×2 (09:13→18:01)
[2016-04-02] MEDS: metFORMIN 500mg tab ORAL SCH ×2 (09:13→18:00)
[2016-04-02 12:00] VITALS: BP 100/72
--- NOTE | 2016-04-02 14:25 | Neurology Progress Note ---
Interim History Interim History Interim History Mr. Qiu feels better generally. He was given laxatives yesterday and has had diarrhoea today. His Cabral was removed this morning and he has been unable to void. He walked much more with his physical therapist yesterday. He feels steadier on his feet when he stands and walks. The back pain is better. He feels that the legs are a little stronger. The altered sensations are improving and much better on the right and a little better on the left. The altered sensations in his saddle area are the same. He denies any new neurologic symptoms. Review of Systems Neuro Review of Systems Benign. Objective Physical Exam Last Vital Signs Date Time Temp Pulse Resp B/P Pulse Ox O2 Delivery O2 Flow Rate FiO2 04/02/16 12:00 97.3 81 18 100/72 98 Room Air 03/29/16 12:08 2.0 03/29/16 01:30 28 Neurologic Exam Objective PHYSICAL EXAMINATION: GENERAL: He is a well-developed, well-nourished, slightly obese, gentleman, lying in bed, no acute distress. HEAD: Normocephalic and atraumatic. EENT: Examination benign. NECK: No neck rigidity was observed. NEUROLOGICAL EXAMINATION: MENTAL STATUS EXAMINATION: He was alert and awake. He was oriented to person, place, and time. He was able to recall 3/3 words immediately after 1 minute and after 3 minutes. He was able to remember presidents Trump through Viral. His mathematical skills were fairly good. His visuospatial function was preserved. SPEECH: He had no dysarthria. LANGUAGE: He had no aphasia. CRANIAL NERVE EXAMINATION: II: The visual camargo were intact to confrontation testing. III, IV & : The external ocular movements were full and the pupils 3 mm in diameter, equal, round, regular and reactive to light. V: He had normal facial sensations in the temporales, masseters, and pterygoids functioned normally. VII: He had normal facial expression and no facial asymmetry. VIII: He able to hear well bilaterally and had no nystagmus. IX: The palate moved symmetrically on phonation. X: He had no hoarseness of voice. XI: The sternocleidomastoids and trapezii functioned normally. XII: The tongue was in the midline without any fasciculations or atrophy. MOTOR SYSTEM: The tone was normal in all four extremities. Examination of muscle mass revealed no focal wasting. Examination of power revealed G 5/5 power in both upper extremities. In the lower extremities he had: G 4/5 on the right side, and G 4-/5 on the left side in the iliopsoas. G 5/5 on the right side, and G 5/5power on the left side in the quadriceps. G 5/5 power on the right side and grade 5-/5 power on the left side, in the hamstrings. G 4/5 power on the right side, and G 3-/5 power on the left side in the ankle dorsiflexors, and toe extensors. G 5-/5 power on the right side and G 4-/5 power on the left side in the ankle plantar flexors and toe flexors. SENSORY EXAMINATION: He had altered sensations to pinprick and light touch in a patchy manner more in the left than right lower extremity. In addition, he also had altered sensations in the saddle area. REFLEXES: Trace+ and bilaterally symmetrical at the biceps, triceps, and brachioradialis. 0 at both knees and ankles. The plantar responses were flexor bilaterally. STANCE & GAIT: Were deferred. Impression/Recommendations Diagnostic Impression 1. Mr. Eliane Qiu is a 66-year-old, right-handed, gentleman, who does have a past history of hypertension, diabetes mellitus, dyslipidemia, osteoarthritis involving both knees, fractures of both his arms that were treated, lumbosacral spine surgery two years ago and cervical spine surgery one year ago, who approximately one month ago started to have some increased low back pain and then in the earlier part of last week developed problems moving his right leg, and on 03/22/2016 developed significant left leg weakness, increased low back pain and altered sensations in his left leg. He was hospitalized on 03/24/2016, started on steroids and was given morphine for pain and then developed inability to void urine. 2. On 03/28/16 he had a "discectomy at L3-4, hardware removal and revision of laminectomy/fusion from L1 through S1." 3. He continues to feel better. The legs feel stronger but the altered sensations are improving. The walking is also improving. He however has been unable to void since his Cabral catheter was removed. 4. On neurological examination, at this time, his paraparesis involving the left side more than the right side is better. He also has altered sensations to pinprick and light touch involving both lower extremities and in addition his saddle area. The deep tendon reflexes are significantly diminished in the upper extremities and lost in the lower extremities. 4. An MRI scan of the lumbosacral spine performed on 03/26/2016, reveals severe L3-4 spinal stenosis, moderate L2-3 spinal stenosis and milder L1-2 spinal stenosis. 5. The MRI of the C-spine performed on 03/26/16 reveals post-operative changes but no cord pathology. 6. The MRI of the T-spine performed on 03/26/16 reveals no cord pathology. 7. The MRI of the brain performed on 03/26/16 reveals atrophy but no acute intracranial pathology. 8. The patient's history and neurological examination, and MRI scan findings are most compatible with a severe lumbosacral polyradiculopathy involving the left side more than the right due to the severe L3-4 spinal stenosis and moderate L2-3 spinal stenosis. 9. His LS spine has now been surgically decompressed and stabilized. 10. His neurologic function continues to improve. 11. He has been unable to void since his Cabral Catheter was removed. Recommendations 1. Continue present management. 2. Continue to keep active with PT/OT. 3. Try to void standing up and with water running. 4. May need re-insertion of catheter if unable to void. 5. Acute rehab in the near future. Julio Murillo M.D., M.S.P.JULIO MARINELLI Apr 02, 2016 14:25
--- NOTE | 2016-04-02 14:42 | General Progress Note ---
Assessment/Plan Problem List: (1) Foot drop, left Assessment & Plan: - s/p Laminectomy Lumbar 1,2,3,4,5,S1. Left sided L34 microdiscectomy, Hardware removal and revision L4,5,S1 with posterolateral fusion - encourage mobilization/ambulation - encourage incentive spirometry to optimize pulmonary hygiene - DVT/GI prophylaxis as appropriate - ctm CBC and hemodynamics - ctm electrolytes, adjust/replete prn - PT/OT/ST, if indicated - pain control, supportive care, bowel regimen - DC planning to [facility] ICD Codes: M21.372 - Foot drop, left foot SNOMED: 4978158, [id number] (2) Lumbar herniated disc Assessment & Plan: As above ICD Codes: M51.26 - Other intervertebral disc displacement, lumbar region SNOMED: 976353124, 68379691 (3) Hyperlipidemia Assessment & Plan: Cont statin ICD Codes: E78.5 - Hyperlipidemia SNOMED: 73141693 (4) Hypertension Assessment & Plan: Cont BP meds ICD Codes: I10 - Hypertension SNOMED: 29008199 (5) Diabetes mellitus Assessment & Plan: Cont sliding scale Expect temporary hyperglycemia with steroid dose May need long acting insulin temporarily Diabetic diet ICD Codes: E11.9 - Type 2 diabetes mellitus without complications SNOMED: 07104000 (6) Urinary retention Assessment & Plan: Monitor voiding, check bladder scan s/p dc uribe catheter this morning Cont flomax Consult urology ICD Codes: R33.9 - Retention of urine, unspecified SNOMED: 039134691 Subjective Date patient seen: Apr 02, 2016 Time patient seen: 14:40 ROS Limited/Unobtainable: No Allergies: Coded Allergies: No Known Allergies (Unverified , 07/24/12) Subjective s/p Laminectomy Lumbar 1,2,3,4,5,S1. Left sided L34 microdiscectomy, Hardware removal and revision L4,5,S1 with posterolateral fusion POD#5, no periop or postop complications. No chest pain or dyspnea, uribe cath removed this morning , doing better today, c/o persistent constipation, only 22 cc in bladder scan Objective Last 24 Hour Vital Signs Date Time Temp Pulse Resp B/P Pulse Ox O2 Delivery O2 Flow Rate FiO2 04/02/16 12:00 97.3 81 18 100/72 98 Room Air 04/02/16 09:00 96/69 04/02/16 09:00 77 96/69 04/02/16 09:00 77 96/69 04/02/16 08:00 97.3 77 18 96/69 96 Room Air 04/02/16 04:00 98.2 87 18 109/69 97 Room Air 04/02/16 00:00 97.9 83 18 120/75 95 Room Air 04/01/16 20:48 97.2 92 19 123/69 95 Room Air 04/01/16 16:18 98.1 86 18 106/67 95 Room Air Intake and Output 04/01/16 04/02/16 19:00 07:00 Intake Total 1240 ml 480 ml Output Total 800 ml 1300 ml Balance 440 ml -820 ml Intake Oral 1240 ml 480 ml Output Urine Total 800 ml 1300 ml # Bowel Movements 2 Height (Feet): 5 Height (Inches): 10.00 Weight (Pounds): 252 Objective General: alert, cooperative, no distress, appears stated age Head: normocephalic, without obvious abnormality, atraumatic Eyes: conjunctivae/corneas clear. PERRL, EOM's intact Throat: lips, mucosa, and tongue normal. MMM Neck: supple, symmetrical, trachea midline, and no JVD Lungs: clear to auscultation bilaterally Heart: regular rate and rhythm, S1, S2 normal, no murmur, click, rub or gallop Abdomen: soft, non-tender, non-distended, bowel sounds normal; no masses or organomegaly Extremities: extremities normal, atraumatic, no cyanosis or edema Pulses: 2+ and symmetric Skin: skin color, texture, turgor normal; no rashes or lesions PETE AMIN Apr 02, 2016 14:42
[2016-04-02 16:00] VITALS: BP 114/78
[2016-04-02 20:00] VITALS: BP 124/75
[2016-04-02] MEDS: Tamsulosin 0.4mg cap ORAL SCH (20:11)
[2016-04-03] VITALS: BP 117/60
[2016-04-03 04:00] VITALS: BP 106/79
[2016-04-03] MEDS: NovoLOG Insulin Flexpen SUBQ SCH ×2 (06:19→12:03)
[2016-04-03 08:10] VITALS: BP 128/74
[2016-04-03] MEDS: Miralax 17gm pkt ORAL PRN (08:55)
[2016-04-03] MEDS: Docusate 100mg cap ORAL SCH (08:55)
[2016-04-03] MEDS: metFORMIN 500mg tab ORAL SCH (08:56)
[2016-04-03] MEDS: Aspirin EC 81mg tab ORAL SCH (08:57)
[2016-04-03] MEDS: Norco 7.5mg/325mg tab ORAL PRN (11:59)
[2016-04-03 12:00] VITALS: BP 102/68
--- NOTE | 2016-04-03 15:23 | Urology Progress Note ---
Assessment/Plan Assessment/Plan 1. Urinary retention. 2. Benign prostatic hypertrophy. 3. Probable neurogenic bladder. failed repeat voiding trial flomax 0.8 mg minimize narcotics consider adding urecholine cysto later Subjective Allergies: Coded Allergies: No Known Allergies (Unverified , 07/24/12) Subjective all noted, uribe reinserted Objective Last 24 Hour Vital Signs Date Time Temp Pulse Resp B/P Pulse Ox O2 Delivery O2 Flow Rate FiO2 04/03/16 13:37 97.9 04/03/16 13:36 97.9 04/03/16 12:00 97.9 78 21 102/68 99 Room Air 04/03/16 10:09 98.2 04/03/16 08:57 82 128/74 04/03/16 08:56 128/74 04/03/16 08:56 82 128/74 04/03/16 08:10 98.2 82 21 128/74 97 Room Air 04/03/16 04:00 98.0 79 18 106/79 96 Room Air 04/03/16 00:00 97.9 79 18 117/60 96 Room Air 04/02/16 20:00 98.2 92 19 124/75 98 Room Air 04/02/16 16:00 96.4 83 19 114/78 98 Room Air Intake and Output 04/02/16 04/03/16 19:00 07:00 Intake Total 240 ml 540 ml Output Total 1250 ml Balance 240 ml -710 ml Intake Oral 240 ml 540 ml Output Urine Total 1250 ml # Voids 2 # Bowel Movements 4 2 Current Medications Medications (Trade) Dose Ordered Sig/Lalito Route PRN Reason Start Time Stop Time Status Last Admin Dose Admin Acetaminophen (Tylenol) 650 mg Q4H PRN ORAL headache or temp>101 03/28/16 16:15 04/27/16 16:14 03/30/16 12:51 Acetaminophen/ Hydrocodone Bitart ([place] 5/325) 1 tab Q3H PRN ORAL pain score 1-3 03/28/16 16:15 04/04/16 16:14 03/31/16 21:16 Acetaminophen/ Hydrocodone Bitart ([place] 7.5/325) 1 ea Q3H PRN ORAL pain score 4-6 03/28/16 16:15 04/04/16 16:14 04/03/16 11:59 Acetaminophen/ Hydrocodone Bitart ([place] 7.5/325) 2 ea Q3H PRN ORAL pain scale 7-10 03/28/16 16:15 04/04/16 16:14 03/31/16 06:17 Amlodipine Besylate (Norvasc) 5 mg DAILY ORAL 03/24/16 09:00 04/23/16 08:59 04/03/16 08:57 Aspirin (Ecotrin) 81 mg DAILY ORAL 03/24/16 09:00 04/23/16 08:59 04/03/16 08:57 Atenolol (Tenormin) 50 mg DAILY ORAL 03/24/16 09:00 04/23/16 08:59 04/03/16 08:56 Atorvastatin Calcium (Lipitor) 10 mg BEDTIME ORAL 03/24/16 21:00 04/23/16 20:59 04/02/16 20:10 Bisacodyl (Dulcolax) 10 mg DAILYPRN PRN RECTAL Constipation Second Line 03/25/16 10:45 04/24/16 10:44 Carisoprodol (Soma) 350 mg TIDPRN PRN ORAL SPASM 03/28/16 16:15 04/27/16 16:14 04/03/16 08:56 Dextrose (Dextrose 50%) STAT PRN IV Hypoglycemia 03/23/16 23:00 04/22/16 22:59 Docusate Sodium (Colace) 100 mg TWICE A DAY ORAL 03/29/16 09:00 04/28/16 08:59 04/03/16 08:55 Gabapentin (Neurontin) 400 mg THREE TIMES A DAY ORAL 03/24/16 09:00 04/23/16 08:59 04/03/16 11:58 Hydromorphone HCl (Dilaudid) 1 mg Q2H PRN IVP Breakthrough Pain 03/28/16 16:15 04/04/16 16:14 Hydromorphone HCl (Dilaudid) 1 mg Q4H PRN SUBQ Mild Pain (Pain Scale 1-3) 03/28/16 16:15 04/04/16 16:14 Hydromorphone HCl (Dilaudid) 2 mg Q3H PRN SUBQ Severe Pain (Pain Scale 7-10) 03/28/16 16:15 04/04/16 16:14 03/29/16 01:04 Hydromorphone HCl (Dilaudid) 2 mg Q4H PRN SUBQ Moderate Pain (Pain Scale 4-6) 03/28/16 16:15 04/04/16 16:14 Insulin Aspart (NovoLOG) BEFORE MEALS AND HS SUBQ 03/24/16 06:30 04/23/16 06:29 04/03/16 12:03 Irbesartan (Avapro) 75 mg DAILY ORAL 03/24/16 09:00 04/23/16 08:59 04/03/16 08:56 Magnesium Hydroxide (Mom) 30 ml QIDPRN PRN ORAL Constipation 03/28/16 16:15 04/27/16 16:14 04/01/16 12:24 Metformin HCl (Glucophage) 750 mg BID ORAL 03/24/16 09:00 04/23/16 08:59 04/03/16 08:56 Metoclopramide HCl (Reglan) 10 mg Q6H PRN IVP Nausea & Vomiting 03/28/16 16:15 04/27/16 16:14 Naloxone HCl (Narcan) 0.1 mg PRN PRN IVP RR<12/min, pt unarousable 03/28/16 16:15 04/27/16 16:14 Ondansetron HCl (Zofran) 4 mg Q6H PRN IVP Nausea & Vomiting 03/28/16 16:15 04/27/16 16:14 Pioglitazone HCl (Actos) 30 mg DAILY PO 03/24/16 09:00 04/23/16 08:59 04/03/16 08:57 Polyethylene Glycol (Miralax) 17 gm DAILY PRN ORAL Constipation First line 03/25/16 10:45 04/24/16 10:44 04/03/16 08:55 Tamsulosin HCl (Flomax) 0.8 mg BEDTIME ORAL 03/30/16 21:00 04/29/16 20:59 04/02/16 20:11 Temazepam (Restoril) 15 mg HSPRN PRN ORAL Insomnia 03/28/16 16:15 04/04/16 16:14 Current Medications Medications (Trade) Dose Ordered Sig/Lalito Route PRN Reason Start Time Stop Time Status Last Admin Dose Admin Acetaminophen (Tylenol) 650 mg Q4H PRN ORAL headache or temp>101 03/28/16 16:15 04/27/16 16:14 03/30/16 12:51 Acetaminophen/ Hydrocodone Bitart ([place] 5/325) 1 tab Q3H PRN ORAL pain score 1-3 03/28/16 16:15 04/04/16 16:14 03/31/16 21:16 Acetaminophen/ Hydrocodone Bitart ([place] 7.5/325) 1 ea Q3H PRN ORAL pain score 4-6 03/28/16 16:15 04/04/16 16:14 04/03/16 11:59 Acetaminophen/ Hydrocodone Bitart ([place] 7.5/325) 2 ea Q3H PRN ORAL pain scale 7-10 03/28/16 16:15 04/04/16 16:14 03/31/16 06:17 Amlodipine Besylate (Norvasc) 5 mg DAILY ORAL 03/24/16 09:00 04/23/16 08:59 04/03/16 08:57 Aspirin (Ecotrin) 81 mg DAILY ORAL 03/24/16 09:00 04/23/16 08:59 04/03/16 08:57 Atenolol (Tenormin) 50 mg DAILY ORAL 03/24/16 09:00 04/23/16 08:59 04/03/16 08:56 Atorvastatin Calcium (Lipitor) 10 mg BEDTIME ORAL 03/24/16 21:00 04/23/16 20:59 04/02/16 20:10 Bisacodyl (Dulcolax) 10 mg DAILYPRN PRN RECTAL Constipation Second Line 03/25/16 10:45 04/24/16 10:44 Carisoprodol (Soma) 350 mg TIDPRN PRN ORAL SPASM 03/28/16 16:15 04/27/16 16:14 04/03/16 08:56 Dextrose (Dextrose 50%) STAT PRN IV Hypoglycemia 03/23/16 23:00 04/22/16 22:59 Docusate Sodium (Colace) 100 mg TWICE A DAY ORAL 03/29/16 09:00 04/28/16 08:59 04/03/16 08:55 Gabapentin (Neurontin) 400 mg THREE TIMES A DAY ORAL 03/24/16 09:00 04/23/16 08:59 04/03/16 11:58 Hydromorphone HCl (Dilaudid) 1 mg Q2H PRN IVP Breakthrough Pain 03/28/16 16:15 04/04/16 16:14 Hydromorphone HCl (Dilaudid) 1 mg Q4H PRN SUBQ Mild Pain (Pain Scale 1-3) 03/28/16 16:15 04/04/16 16:14 Hydromorphone HCl (Dilaudid) 2 mg Q3H PRN SUBQ Severe Pain (Pain Scale 7-10) 03/28/16 16:15 04/04/16 16:14 03/29/16 01:04 Hydromorphone HCl (Dilaudid) 2 mg Q4H PRN SUBQ Moderate Pain (Pain Scale 4-6) 03/28/16 16:15 04/04/16 16:14 Insulin Aspart (NovoLOG) BEFORE MEALS AND HS SUBQ 03/24/16 06:30 04/23/16 06:29 04/03/16 12:03 Irbesartan (Avapro) 75 mg DAILY ORAL 03/24/16 09:00 04/23/16 08:59 04/03/16 08:56 Magnesium Hydroxide (Mom) 30 ml QIDPRN PRN ORAL Constipation 03/28/16 16:15 04/27/16 16:14 04/01/16 12:24 Metformin HCl (Glucophage) 750 mg BID ORAL 03/24/16 09:00 04/23/16 08:59 04/03/16 08:56 Metoclopramide HCl (Reglan) 10 mg Q6H PRN IVP Nausea & Vomiting 03/28/16 16:15 04/27/16 16:14 Naloxone HCl (Narcan) 0.1 mg PRN PRN IVP RR<12/min, pt unarousable 03/28/16 16:15 04/27/16 16:14 Ondansetron HCl (Zofran) 4 mg Q6H PRN IVP Nausea & Vomiting 03/28/16 16:15 04/27/16 16:14 Pioglitazone HCl (Actos) 30 mg DAILY PO 03/24/16 09:00 04/23/16 08:59 04/03/16 08:57 Polyethylene Glycol (Miralax) 17 gm DAILY PRN ORAL Constipation First line 03/25/16 10:45 04/24/16 10:44 04/03/16 08:55 Tamsulosin HCl (Flomax) 0.8 mg BEDTIME ORAL 03/30/16 21:00 04/29/16 20:59 04/02/16 20:11 Temazepam (Restoril) 15 mg HSPRN PRN ORAL Insomnia 03/28/16 16:15 04/04/16 16:14 Height (Feet): 5 Height (Inches): 10.00 Weight (Pounds): 252 Objective exam stable DAVID PAYAN Apr 03, 2016 15:23
--- NOTE | 2016-04-03 17:43 | Discharge Summary ---
Discharge Summary Hospital Course Date of Admission Mar 23, 2016 at 19:39 Date of Discharge Apr 03, 2016 Admitting Diagnosis lumbar radiculopathy Reason for Hospitalization: severe lumbar stenosis with cord compression HPI Eliane Qiu is a 66 year old male who was admitted on Mar 23, 2016 at 19:39 for Lumbar Radiculopathy Consultations Spine Surgery Neurology Cardiology Procedures Lumbar Surgery ( See Operative report) Hospital Course 66 y/o man who presented with LLE weakness and L foot drop, urinary retention, with pelvic sensory symptoms as well. Pt was s/p recent spine surgery, seen by surgery and rec IV decadron. Pt improved somewhat the day after but then had recurrent LLE weakness and urinary retention. MRI L spine showed severe stenosis at L3, seen by Neurology who thought pt should have urgent decompression. Unfortunately, pt insurance would not authorize Dr. Galan [place] [facility] [place], pt was cleared by cardiology with echo/nuc stress test, taken to OR for extensive lumbar surgery. Postop course uneventful, transferred to ARU for further PT/OT and rehab Discharge Medications Continued Medications: Amlodipine Besylate* (Amlodipine Besylate*) 5 Mg Tablet 5 MG ORAL DAILY, TAB Atenolol* (Tenormin*) 50 Mg Tablet 50 MG ORAL DAILY, TAB Carisoprodol* (Soma*) 350 Mg Tablet 350 MG PO EVERY 12 HOURS PRN for muscle spasms, TAB Docusate Sodium (Doc-Q-Lace) 100 Mg Capsule 100 MG ORAL BID, #30 CAP 0 Refills Gabapentin* (Gabapentin*) 100 Mg Capsule 400 MG ORAL THREE TIMES A DAY, CAP Hydrocodone/Acetaminophen (Hydrocodon-Acetaminophn 10-325) 1 Ea Tab 1 TAB ORAL Q4H PRN for For Pain, #30 TAB 0 Refills Lovastatin (Lovastatin) 20 Mg Tablet 20 MG ORAL DAILY, #30 TAB 0 Refills Metformin Hcl (Metformin Hcl Er) 750 Mg Tab.er.24h 750 MG ORAL TWICE A DAY, TAB Omeprazole (Omeprazole) 20 Mg Capsule.dr 20 MG ORAL DAILY, CAP Pioglitazone Hcl* (Actos*) 30 Mg Tablet 30 MG ORAL DAILY, TAB Valsartan (Diovan) 80 Mg Tab 80 MG ORAL DAILY, TAB Discontinued Medications: Aspirin* (Aspir 81*) 81 Mg Tablet. 81 MG ORAL DAILY, TAB Famotidine (Famotidine) 20 Mg Tablet 20 MG ORAL TWICE A DAY, #60 TAB 0 Refills Ibuprofen* (Motrin*) 600 Mg Tablet 800 MG ORAL TWICE A DAY, #30 TAB 0 Refills Prednisone* (Prednisone*) 10 Mg Tablet 10 MG ORAL FOUR TIMES A DAY, #10 TAB 0 Refills Discharge Discharge Disposition Patient was discharged to ARU at [facility] Discharge Diagnoses: (1) Lumbar radiculopathy (2) Diabetes mellitus (3) Urinary retention (4) HNP (herniated nucleus pulposus), lumbar (5) Foot drop, left (6) Hypertension PETE AMIN Apr 03, 2016 17:43
== END 2016-04-03 16:00 | disposition short-term general hospital (02) | DRG 460 ==
LOC: EMR 18:03 → EDBEDREQ 19:27 → 3E 19:39
PROC: 00NY0ZZ Release Lumbar Spinal Cord, Open Approach (ICD-10-PCS; principal; 2016-03-28 15:00)
PROC: 0SG10K1 Fusion of 2 or more Lumbar Vertebral Joints with Nonautologous Tissue Substitute, Posterior Approach, Posterior Column, Open Approach (ICD-10-PCS; principal; 2016-03-28 15:00)
PROC: 0SB20ZZ Excision of Lumbar Vertebral Disc, Open Approach (ICD-10-PCS; principal; 2016-03-28 15:00)
PROC: 0SG30K1 Fusion of Lumbosacral Joint with Nonautologous Tissue Substitute, Posterior Approach, Posterior Column, Open Approach (ICD-10-PCS; principal; 2016-03-28 15:00)
PROC: 01NB0ZZ Release Lumbar Nerve, Open Approach (ICD-10-PCS; principal; 2016-03-28 15:00)
DX: M51.16 Intervertebral disc disorders with radiculopathy, lumbar region (principal); G95.89 Other specified diseases of spinal cord; G83.4 Cauda equina syndrome; M51.17 Intervertebral disc disorders with radiculopathy, lumbosacral region; M48.06 Spinal stenosis, lumbar region; M48.07 Spinal stenosis, lumbosacral region; M21.372 Foot drop, left foot; E11.9 Type 2 diabetes mellitus without complications; I10 Essential (primary) hypertension; Z96.653 Presence of artificial knee joint, bilateral; Z79.4 Long term (current) use of insulin; E66.9 Obesity, unspecified; Z86.73 Personal history of transient ischemic attack (TIA), and cerebral infarction without residual deficits; I25.10 Atherosclerotic heart disease of native coronary artery without angina pectoris; Z98.1 Arthrodesis status; N40.1 Benign prostatic hyperplasia with lower urinary tract symptoms; R33.8 Other retention of urine
CPT/HCPCS: 36415; 70553; 71010; 72020; 72141; 72146; 72148; 76001; 78452; 80053; 81003; 82962; 85007; 85025; 85610; 85730; 86850; 86900; 86901; 86920; 93005; 93017; 93306; 94003; 94150; 94760; A9585; J1815; J2250; J2405; J2765; Q2036